=== PATIENT | male | born 1950 | race Caucasian/White ===

== ENCOUNTER → 2016-11-27 | Outpatient (REF) | payer MEDICARE, OTHER | LOC: M SFHCPLAZ 08:52 | PROVIDERS: ATTEND Family Medicine | DX: Z12.5 Encounter for screening for malignant neoplasm of prostate (principal); R35.1 Nocturia | CPT/HCPCS: 36415; G0103 ==

== ENCOUNTER → 2017-09-02 | Outpatient (REF) | payer MEDICARE, OTHER | LOC: M SFHCPLAZ 08:00 | PROVIDERS: ATTEND Family Medicine | DX: R35.1 Nocturia (principal) ==

== ENCOUNTER → 2017-09-02 | Outpatient (REF) | payer MEDICARE, OTHER ==
[2017-09-02 12:49] LABS: ALBUMIN 3.5 GM/DL (3.2-5.2); ALKALINE PHOSPHATASE 102 U/L (45-117); ALT/SGPT 31 U/L (12-78); ANION GAP 7 MEQ/L (8-16); AST/SGOT 30 U/L (7-37); BILIRUBIN,TOTAL 0.8 MG/DL (0.2-1.0); BLOOD UREA NITROGEN 13 MG/DL (7-18); CALCIUM LEVEL 8.6 MG/DL (8.8-10.2); CARBON DIOXIDE LEVEL 28 MEQ/L (21-32); CHLORIDE LEVEL 106 MEQ/L (98-107); CHOLESTEROL LEVEL 161 MG/DL (<200); CREATININE FOR GFR 0.79 MG/DL (0.70-1.30); GLOMERULAR FILTRATION RATE > 60.0 (>49); GLUCOSE, FASTING 95 MG/DL (80-110); POTASSIUM SERUM 4.2 MEQ/L (3.5-5.1); SODIUM LEVEL 141 MEQ/L (136-145); TRIGLYCERIDES LEVEL 113 MG/DL (<150)
== END ==
LOC: M LABDRAWP 11:59 → M LAB REF 11:59
PROVIDERS: ATTEND Physician Assistant
DX: E78.00 Pure hypercholesterolemia, unspecified (principal); R35.1 Nocturia; Z79.899 Other long term (current) drug therapy

== ENCOUNTER → 2018-04-07 | Outpatient (REF) | payer MEDICARE, OTHER ==
[2018-04-07 13:07] LABS: TOTAL 25(OH) VITAMIN D 23.4 NG/ML (30.0-100.0)
[2018-04-07 13:08] LABS: ANION GAP 6 MEQ/L (8-16); BLOOD UREA NITROGEN 13 MG/DL (7-18); CALCIUM LEVEL 8.8 MG/DL (8.8-10.2); CARBON DIOXIDE LEVEL 28 MEQ/L (21-32); CHLORIDE LEVEL 107 MEQ/L (98-107); CHOLESTEROL LEVEL 176 MG/DL (<200); CHOLESTEROL RISK RATIO 3.744 (<5); CREATININE FOR GFR 0.81 MG/DL (0.70-1.30); GLOMERULAR FILTRATION RATE > 60.0 (>49); GLUCOSE, FASTING 102 MG/DL (70-100); HDL CHOLESTEROL 47 MG/DL (>40); NON-HDL-C 129 MG/DL; POTASSIUM SERUM 4.3 MEQ/L (3.5-5.1); SODIUM LEVEL 141 MEQ/L (136-145); TRIGLYCERIDES LEVEL 255 MG/DL (<150); TROPONIN I < 0.02 NG/ML (< 0.10); VITAMIN B12 LEVEL 418 PG/ML (247-911)
[2018-04-07 13:20] LABS: CK-MB VALUE MASS 2.9 NG/ML (<3.6); NT-PRO BNP 318 PG/ML (<125); PSA SCREENING 2.64 NG/ML (< 4.0)
[2018-04-07 13:52] LABS: ESTIMATED AVERAGE GLUCOSE 126 MG/DL (60-110)
[2018-04-13 00:15] LABS: VITAMIN B6,PYRIDOXAL PHOSPHATE 16.2 ug/L (5.3-46.7)
== END ==
LOC: M SFHCPLAZ 08:52
DX: I50.32 Chronic diastolic (congestive) heart failure (principal); E78.2 Mixed hyperlipidemia; I35.0 Nonrheumatic aortic (valve) stenosis; Z13.1 Encounter for screening for diabetes mellitus; Z12.5 Encounter for screening for malignant neoplasm of prostate; E53.8 Deficiency of other specified B group vitamins; E55.9 Vitamin D deficiency, unspecified; Z68.32 Body mass index [BMI] 32.0-32.9, adult
CPT/HCPCS: 82607

== ENCOUNTER → 2018-10-10 | Outpatient (REF) | payer MEDICARE, OTHER ==
[2018-10-10 12:10] LABS: NT-PRO BNP 492 PG/ML (<125); TROPONIN I < 0.02 NG/ML (< 0.10)
[2018-10-10 12:15] LABS: TOTAL 25(OH) VITAMIN D 22.5 NG/ML (30.0-100.0)
== END ==
LOC: M SFHCPLAZ 09:08
PROVIDERS: ATTEND Family Medicine
DX: I50.32 Chronic diastolic (congestive) heart failure (principal); E55.9 Vitamin D deficiency, unspecified
CPT/HCPCS: 36415; 82306; 83880; 84484; G0463

== ENCOUNTER → 2019-03-27 | Outpatient (REF) | payer MEDICARE, OTHER ==
[~2019-03-27] MED LIST: ASCO500T PO; ASPI81TA26 PO; ATOR1TAB21 PO; COLA100C5 PO; FERR325T3 PO; FOLI1TAB11 PO; METO50TA7 PO; QC A650T3 PO; RANI150T14 PO; WARF4TAB51 PO
[2019-03-27 12:30] LABS: INR 3.49; PROTHROMBIN TIME 35.1 SECONDS (11.8-14.0)
== END ==
LOC: M LABDRAWP 11:45
DX: Z79.01 Long term (current) use of anticoagulants (principal)

== ENCOUNTER 2019-04-04 10:02 | Emergency (ER) | payer MEDICARE, BC, OTHER ==
[~2019-04-04] VITALS: Ht 172.7 cm; Wt 95.5 kg
[2019-04-04 10:51] LABS: BASO % 0.2 % (0.0-1.0); HEMATOCRIT 32.5 % (42.0-52.0); HEMOGLOBIN 10.9 g/dl (13.5-17.5); LYMPH # 1.4 10^3/uL (1.5-4.5); MEAN CORPUSCULAR HEMOGLOBIN 30.1 pg (27.0-33.0); MEAN CORPUSCULAR HGB CONC 33.5 g/dl (32.0-36.5); MEAN CORPUSCULAR VOLUME 89.8 fl (80.0-96.0); MONO # 1.4 10^3/uL (0.0-0.8); MONO % 7.1 % (0.0-5.0); NEUTROPHILS % 84.2 % (36.0-66.0); PLATELET COUNT, AUTOMATED 530 10^3/uL (150-450); RED BLOOD COUNT 3.62 10^6/uL (4.30-6.10); WHITE BLOOD COUNT 20.2 10^3/uL (4.0-10.0)
[2019-04-04 11:19] LABS: CALCIUM LEVEL 8.2 MG/DL (8.8-10.2); CREATININE FOR GFR 1.62 MG/DL (0.70-1.30); GLOMERULAR FILTRATION RATE 45.1 (>42); POTASSIUM SERUM 4.9 MEQ/L (3.5-5.1)
[2019-04-04 11:22] LABS: CK-MB VALUE MASS 6.9 NG/ML (<3.6); MB/CK RELATIVE INDEX 5.15 (< OR =4); TROPONIN I 0.2 NG/ML (< 0.10)
[2019-04-04] MEDS ORDERED: ISOVUE-370 76% 100ML VIAL (Q9967) As Ordered ONE (11:33)
[2019-04-04] MEDS ORDERED: RANI150T14 PO (11:36)
[2019-04-04] MEDS ORDERED: ATOR1TAB21 PO (11:36)
[2019-04-04] MEDS ORDERED: WARF4TAB51 PO (11:36)
[2019-04-04] MEDS ORDERED: QC A650T3 PO (11:36)
[2019-04-04] MEDS ORDERED: METO50TA7 PO (11:36)
[2019-04-04] MEDS ORDERED: FERR325T3 PO (11:36)
[2019-04-04] MEDS ORDERED: COLA100C5 PO (11:36)
[2019-04-04] MEDS ORDERED: ASPI81TA26 PO (11:36)
[2019-04-04] MEDS ORDERED: FOLI1TAB11 PO (11:36)
[2019-04-04] MEDS ORDERED: ASCO500T PO (11:36)
--- NOTE | 2019-04-04 11:38 | REP ---
CHEST, SINGLE VIEW: Single portable supine film of the chest is performed without prior studies for comparison. There is mild elevation of the right hemidiaphragm. There is no acute infiltrate or pulmonary edema. There is mild to moderate cardiomegaly. There is tortuosity of the thoracic aorta. The mediastinal silhouette is otherwise unremarkable. Multiple sternal wires are present. Electronically Signed by Shukri Arizmendi MD 04/04/2019 05:19 P
[2019-04-04 11:39] LABS: INR 6.69
[2019-04-04] MEDS ORDERED: NS 1,000 ML IV ONE ×2 (11:45→14:00)
[2019-04-04 13:09] LABS: ALBUMIN 3.1 GM/DL (3.2-5.2); BILIRUBIN,DIRECT 0.3 MG/DL (0.0-0.2); FREE T4 1.43 NG/DL (0.76-1.46); THYROID STIMULATING HORMONE 4.14 uIU/ML (0.358-3.740); TOTAL PROTEIN 7.8 GM/DL (6.4-8.2)
[2019-04-04 13:53] VITALS: BP 93/57
--- NOTE | 2019-04-04 14:12 | REP ---
CT ANGIOGRAM CHEST: TECHNIQUE: Axial contrast enhanced images from the thoracic inlet to the upper abdomen using 100 mL Isovue 370 intravenous contrast material with multiplanar reformations. There is no CT evidence of pulmonary embolism. There a marked size pericardial effusion. There is mild to moderate right pleural fluid. There is a tiny left pleural effusion. There is mild right lower lobe atelectasis/infiltrate with some minimal infiltrate or atelectasis in the left lower lobe. There are a couple of mildly enlarged mediastinal lymph nodes present. There is evidence of prior thoracic surgery with multiple sternal wires present. There is no dilatation of the thoracic aorta with mild scattered atherosclerotic calcification. Calcified granuloma is seen in the right upper lobe and there are a couple of calcified granulomas and lymph nodes in the left infrahilar region. Small amount of perihepatic fluid is present in the upper abdomen. There are degenerative changes of the spine. Incidental note is made of an oval lipoma in the left anterolateral chest wall inferiorly measuring 5.6 x 2.4 cm. IMPRESSION: No CT evidence of pulmonary embolism. Moderate size pericardial effusion. Mild to moderate right pleural effusion and tiny left pleural effusion. There is mild bibasilar atelectasis/infiltrate, right greater than left. Mild perihepatic fluid. Electronically Signed by Shukri Arizmendi MD 04/05/2019 09:23 A
--- NOTE | 2019-04-05 00:18 | ECGEPIP ---
[facility] - ED Test Date: 2019-04-04 Pat Name: ZEHRA PINEDA Department: Room: - Gender: Male Loan Specialist: JMissy : 1950 Requested By: Colt Mullins Order Number: [id number] Reading MD: Charlie Mckeon Measurements Intervals [place] Rate: 100 P: 55 NV: 194 QRS: 107 QRSD: 99 T: 108 QT: 364 QTc: 471 Interpretive Statements SINUS TACHYCARDIA WITH FREQUENT SUPRAVENTRICULAR PREMATURE COMPLEXES MARKED RIGHT AXIS DEVIATION Prolonged QTc interval Comparison tracing not on file Electronically Signed on 04-05-2019 0:18:00 EDT by Charlie Mckeon
== END 2019-04-04 14:04 | disposition short-term general hospital (02) ==
LOC: M ED 10:02 → EDBD 10:02 → M ED 14:04
DX: I31.3 Pericardial effusion (noninflammatory) (principal); Z98.890 Other specified postprocedural states; Z95.4 Presence of other heart-valve replacement; R79.1 Abnormal coagulation profile; E87.1 Hypo-osmolality and hyponatremia; R00.0 Tachycardia, unspecified; Z79.899 Other long term (current) drug therapy; Z79.82 Long term (current) use of aspirin; Z79.01 Long term (current) use of anticoagulants
CPT/HCPCS: 71045; 71275; 80048; 80076; 82550; 82553; 83690; 83930; 84439; 84443; 84484; 85025; 85610; 85730; 86850; 86900; 86901; 93005; 93041; 94760; 99285; Q9967

== ENCOUNTER → 2019-04-20 | Outpatient (REF) | payer MEDICARE, OTHER ==
[2019-04-20 18:09] LABS: BLOOD UREA NITROGEN 14 MG/DL (7-18); CALCIUM LEVEL 8.6 MG/DL (8.8-10.2); CARBON DIOXIDE LEVEL 25 MEQ/L (21-32); CHLORIDE LEVEL 109 MEQ/L (98-107); CREATININE FOR GFR 0.84 MG/DL (0.70-1.30); GLOMERULAR FILTRATION RATE > 60.0 (>42); GLUCOSE, FASTING 154 MG/DL (70-100); IRON (FE) 44 UG/DL (65-175); PERCENT SATURATION 12.6 % (19.7-50.0); POTASSIUM SERUM 3.9 MEQ/L (3.5-5.1); SODIUM LEVEL 141 MEQ/L (136-145); TOTAL IRON BINDING CAPACITY 348 UG/DL (250-450)
[2019-04-20 18:27] LABS: BASO # 0.1 10^3/uL (0.0-0.2); BASO % 1.4 % (0.0-1.0); EOS # 0.2 10^3/uL (0.0-0.50); EOS % 2.8 % (0.0-3.0); HEMATOCRIT 38.9 % (42.0-52.0); HEMOGLOBIN 12.2 g/dl (13.5-17.5); LYMPH # 1.5 10^3/uL (1.5-4.5); LYMPH % 23.6 % (24.0-44.0); MEAN CORPUSCULAR HEMOGLOBIN 29.3 pg (27.0-33.0); MEAN CORPUSCULAR HGB CONC 31.4 g/dl (32.0-36.5); MEAN CORPUSCULAR VOLUME 93.5 fl (80.0-96.0); MONO # 0.5 10^3/uL (0.0-0.8); MONO % 8.3 % (0.0-5.0); NEUTROPHILS % 63.3 % (36.0-66.0); PLATELET COUNT, AUTOMATED 324 10^3/uL (150-450); RED BLOOD COUNT 4.16 10^6/uL (4.30-6.10); WHITE BLOOD COUNT 6.4 10^3/uL (4.0-10.0)
== END ==
LOC: M SFHCPLAZ 14:37
PROVIDERS: ATTEND Family Medicine
DX: D64.9 Anemia, unspecified (principal); N17.9 Acute kidney failure, unspecified; Z09 Encounter for follow-up examination after completed treatment for conditions other than malignant neoplasm

== ENCOUNTER 2019-05-12 11:19 | Outpatient (RCR) | payer MEDICARE, BC, OTHER ==
--- NOTE | 2019-05-10 13:13 | CARECAPL ---
Assessment Account #s: Initial Assessment General Diagnoses: AVR Date of event: Mar 20, 2019 Physician: Reinier Cordoba Allergies: Coded Allergies: No Known Allergies (Unverified , 04/04/19) Date Entered Program: May 10, 2019 Risk strat for cardiac event: High Exercise Date: May 10, 2019 Assessment: Initial Assessment Exercise Prescription Plan TO EDUCATE AND BUILD ENDURANCE THROUGH MONITORED EXERCISE Modalities initiated: Treadmill (WILL ADD), Cardio-Strider (WILL ADD), Nustep (WILL ADD), Arm Aerometer (WILL ADD), Dumbells (WILL ADD), Recumbent Bike (WILL ADD) Frequency: 3 Duration (Minutes) 30-60 minutes total exercise a day. 12-15 work intervals in minutes. 5 MIN NEEDED rest intervals in minutes. Functional Capacity Goal Sustained Metabolic Equivalent of a task (MET) goal of 2.5-3.0 for 15-20 minutes. Intensity: 3-Moderate Progression (METS) Increase by: 0.5 METS every: 5 sessions TOLERATED Angina with ex: No Target Heart Rate REST +35-40 BASED ON BETA LIZET THERAPY Resistance Training: Yes Weight (pounds): 2 Reps: 8-12 Hypertension: Yes Hypertension controlled with: Medication Resting 136/84 Medications Scheduled Amiodarone HCl (Amiodarone HCl), 1 TAB PO DAILY, (Reported) Aspirin (Aspirin), 325 MG PO DAILY, (Reported) Atorvastatin Calcium (Atorvastatin Calcium), 20 MG PO DAILY, (Reported) Atorvastatin Calcium (Lipitor), 20 MG PO DAILY, (Reported) Folic Acid (Folic Acid), 1 MG PO DAILY, (Reported) Metoprolol Tartrate (Metoprolol Tartrate), 25 MG PO BID, (Reported) Ranitidine HCl (Ranitidine HCl), 150 MG PO DAILY, (Reported) Scheduled PRN Acetaminophen (Acetaminophen 8 Hour), 650 MG PO PRN PRN for PAIN, (Reported) Discontinued Medications Ascorbic Acid (Ascorbic Acid), 500 MG PO DAILY, (Reported) Discontinued Reason: Pt states not taking Aspirin (Aspirin EC), 81 MG PO DAILY, (Reported) Discontinued Reason: Re-entering as new Docusate Sodium (Colace), 100 MG PO BID, (Reported) Discontinued Reason: Pt states not taking Ferrous Sulfate (Ferrous Sulfate), 325 MG PO, (Reported) Discontinued Reason: Pt states not taking Warfarin Sodium (Warfarin Sodium), 2 MG PO DAILY, (Reported) Discontinued Reason: Pt states not taking Current BP 136/84 Med Change: No Intervention Education: Self pulse (WILL REVIEW), Ex safety (WILL REVIEW), S/S to report (REVIEWED SIGNS/SYMPTOMS TO REPORT SUCH CHEST PAIN/SOB, PT VERBALIZES UNDERSTANDING), Low NA diet (WILL REVIEW/PATIENT WILL SEE DIRECTOR OF DIGITAL MARKETING WHILE IN PROGRAM), BP medication (WILL DISCUSS), RPE Scale (REVIEWED 1-5 SCALE WITH PATIENT), Equipment orientation (WILL ORIENT TO EACH PIECE OF EQUIPMENT US ED), warm up/cool down, Understand BP (WILL REVIEW), Physical Active (REVIEWED IMPORTANCE OF CONTINUED EXERCISE FOLLOWING CARDIAC REHAB PROGRAM) Target Goals Individual exercise Rx (1) BP 140/90 or 130/80 if DM or CKD (1) Aerobic active 30+min 5 days per week (1) Nutrition Date: May 10, 2019 Assessment: Initial Assessment Lipid- med/supplement ATORVASTATIN 20 MG DAILY Med Change: No Diabetes Diabetes: No Monitor Blood Sugar at home: No Medication Change: No Blood sugar in range: No Weight Management Weight (lbs): 205.4 Height (inches): 68 Waist Circumference (Inches): 42 BMI: 31.2 Special Diet: low salt, low-fat Alcohol: none Diet Access Tool: Rate your plate Score: 40 Current Weight (pounds): 205.4 Intervention Astrophysics Teacher Consult: No Nurse/patient discussion: Yes Dietary Goals CHOOSE HEART HEALTHY DIET/SMALLER PORTIONS Diet Class: Yes (WILL SEE DIRECTOR OF DIGITAL MARKETING WHILE IN CARDIAC REHAB PROGRAM) Referral to Diabetes education: No Referral to lipid clinic: No Referral to weight mangement p: No Education Eating Healthy Target goal LDL-C<100 if triglycerides are >200 Non-HDL-C should be <130 (1) LDL-C<70 for high risk patients (4) HbA1c<7% (1) BMI<25 Waist cir<40in M/<35in F (1) Education Date: May 10, 2019 Assessment: Initial Assessment Learning Barriers: ready Knowledge Test Score: 6 Family Support: Yes Tobacco use: No Tobacco Use Smokeless tobacco: No Intervention Referral to smoking cessation: No Individual education and couns: No Tobacco Adjunct: No Education class schedule given: No Attended education classes: No Education: CAD, Risk factors, med compliance, cardiac A&P, Angina S/S, Sexuality Target Goals Complete cessation of tobacco use (1). Psychosocial Date: May 10, 2019 Assessment: Initial Assessment Psych Test (Initial/Discharge) Tool Used: Other (DEPRESSION SCALE) Score: 9 (MILD DEPRESSION) Intervention Physician Consult: No Physician Referral: No Med Change: No Stress Management Class: No Uses Stress Management Skills: Yes Education Education: Coping Techniques, S/S depression, Relaxation Techniques Target Goal Assess presence or absence of depression using a valid screening tool (1). Maximize coping skills (2). Positive support system (2). Patient/Program Goal Preventative Medication: Yes Aspirin, Yes Beta blockade, Yes Statin/OTR lipid Lowering Fall Risk Assess: Yes (NOT A FALL RISK) Provider Assessment Session Number: 1 Provider Assessment: Proceed with rehab Torin Castellon RN May 10, 2019 13:12
[~2019-05-12 11:19] MED LIST changes: +AMIO200T PO; +BAYE325T12 PO; +LIPI20TA PO
== END 2019-05-13 ==
LOC: M CR 11:19
PROVIDERS: ATTEND Internal Medicine Cardiovascular Disease
DX: Z95.3 Presence of xenogenic heart valve (principal); I35.0 Nonrheumatic aortic (valve) stenosis

== ENCOUNTER 2019-06-02 12:49 | Outpatient (RCR) | payer MEDICARE, BC, OTHER ==
[~2019-06-02 12:49] MED LIST changes: +CORE6.25 PO
--- NOTE | 2019-06-05 10:44 | CARECAPL ---
Assessment Account #s: Re-Assessment I General Diagnoses: AVR Date of event: Mar 20, 2019 Physician: Reinier Cordoba Allergies: Coded Allergies: No Known Allergies (Unverified , 04/04/19) Date Entered Program: May 10, 2019 Risk strat for cardiac event: High Exercise Date: Jun 05, 2019 Assessment: Re-Assessment I Stages of change: Preperation Exercise Prescription Modalities initiated: Treadmill (1.5/1.0 mts 2.35 rpe 3 8 minutes), Cardio- Strider (R3 mts 2.5 rpe 3 10 minutes), Nustep (L2 mts 3.9 rpe 4 10 minutes), Arm Aerometer (1.5 mts 1.7 rpe 3 6 minutes), Dumbells, Recumbent Bike (R2 mts 3.2 rpe 3..0 8 mnutes) Duration (Minutes) 30 - 60 minutes total exercise a day. 15 - 20 work intervals in minutes. PRN rest intervals in minutes. Functional Capacity Goal Sustained Metabolic Equivalent of a task (MET) goal of for minutes. Progression (METS) Increase by: METS every: sessions Angina with ex: No Resistance Training: Yes Weight (pounds): 2 Reps: 6-8 Hypertension: Yes (136/90) Hypertension controlled with: Medication Resting 136/90 Peak Exercise BP 170/90 Meds see below Medications Scheduled Amiodarone HCl (Amiodarone HCl), 1 TAB PO DAILY, (Reported) Aspirin (Aspirin), 325 MG PO DAILY, (Reported) Atorvastatin Calcium (Atorvastatin Calcium), 20 MG PO DAILY, (Reported) Atorvastatin Calcium (Lipitor), 20 MG PO DAILY, (Reported) Carvedilol (Coreg), 6.25 MG PO BID, (Reported) Folic Acid (Folic Acid), 1 MG PO DAILY, (Reported) Ranitidine HCl (Ranitidine HCl), 150 MG PO DAILY, (Reported) Scheduled PRN Acetaminophen (Acetaminophen 8 Hour), 650 MG PO PRN PRN for PAIN, (Reported) Discontinued Medications Metoprolol Tartrate (Metoprolol Tartrate), 25 MG PO BID, (Reported) Discontinued Reason: Pt states not taking Current BP 114/80 after exercises Med Change: No Education Goals Met: No (see prior ITP for education- progressing toward goals) Target Goals Individual exercise Rx (1) BP 140/90 or 130/80 if DM or CKD (1) Aerobic active 30+min 5 days per week (1) Nutrition Date: Jun 05, 2019 Assessment: Re-Assessment I Stages of change: Contemplate Diabetes Diabetes: No Current Weight (pounds): 205.4 Weight Goal 180 Intervention Diet Class: No (will see during program) Education Goals Met: No (progressing toward goals) Target goal LDL-C<100 if triglycerides are >200 Non-HDL-C should be <130 (1) LDL-C<70 for high risk patients (4) HbA1c<7% (1) BMI<25 Waist cir<40in M/<35in F (1) Education Date: Jun 05, 2019 Assessment: Re-Assessment I Intervention Attended education classes: Yes (attending as offered. will progress during program) Education Goals Met: No (progressing toward goals) Target Goals Complete cessation of tobacco use (1). Psychosocial Date: Jun 05, 2019 Assessment: Re-Assessment I Stress Management Class: Yes Education Goals Met: No (progressing toward goals. ) Target Goal Assess presence or absence of depression using a valid screening tool (1). Maximize coping skills (2). Positive support system (2). Provider Assessment Session Number: 5 Provider Assessment: No changes (fair attendance , receptive toward change and positive attitude toward exercise) Eusebia Beckford RN Jun 05, 2019 10:44
== END 2019-06-12 ==
LOC: M CR 12:49
PROVIDERS: ATTEND Internal Medicine Cardiovascular Disease
DX: Z95.3 Presence of xenogenic heart valve (principal); I35.0 Nonrheumatic aortic (valve) stenosis

== ENCOUNTER 2019-06-28 15:20 | Outpatient (RCR) | payer MEDICARE, BC, OTHER ==
--- NOTE | 2019-06-26 11:19 | CARECAPL ---
Assessment Account #s: Re-Assessment II General Diagnoses: AVR Date of event: Mar 20, 2019 Physician: Reinier Cordoba Allergies: Coded Allergies: No Known Allergies (Unverified , 04/04/19) Date Entered Program: May 10, 2019 Risk strat for cardiac event: High Exercise Date: Jun 21, 2019 Assessment: Re-Assessment II Stages of change: Pre-contemplation Exercise Prescription Plan educate on cardiovascular disease and increase endurance, strength and flexibility through monitored exercise program. Modalities initiated: Treadmill (speed 1.8 incline 2.0 for 12 minutes Mets 2.87 RPE 3), Nustep (resistance 3 for 12 minutes Mets 4.5 RPE 2), Arm Aerometer (resistance of 2 for 8 minutes Mets 2.4 RPE 3 ), Dumbells (3lbs 1 set 10 reps RPE 3), Recumbent Bike (Resistance of 2 for 8 minutes Mets 3.2 RPE 3 ) Frequency: 1 Duration (Minutes) 30 - 60 minutes total exercise a day. 15 - 20 work intervals in minutes. PRN rest intervals in minutes. Functional Capacity Goal Sustained Metabolic Equivalent of a task (MET) goal of 3.0-3.5 for 15-20 mi nutes. Intensity: 3-Moderate Progression (METS) Increase by: 0.5 METS every: 3-5 sessions Angina with ex: No Target Heart Rate Rest + 35-40 per beta sunitha therapy. Resistance Training: Yes Weight (pounds): 3 Reps: 8-12 Medications Scheduled Amiodarone HCl (Amiodarone HCl), 1 TAB PO DAILY, (Reported) Aspirin (Aspirin), 325 MG PO DAILY, (Reported) Atorvastatin Calcium (Atorvastatin Calcium), 20 MG PO DAILY, (Reported) Carvedilol (Carvedilol), 12.5 MG PO BID, (Reported) Folic Acid (Folic Acid), 1 MG PO DAILY, (Reported) Ranitidine HCl (Ranitidine HCl), 150 MG PO DAILY, (Reported) Scheduled PRN Acetaminophen (Acetaminophen 8 Hour), 650 MG PO PRN PRN for PAIN, (Reported) Discontinued Medications Atorvastatin Calcium (Lipitor), 20 MG PO DAILY, (Reported) Discontinued Reason: Pt states not taking Carvedilol (Coreg), 6.25 MG PO BID, (Reported) Discontinued Reason: Pt states not taking Carvedilol (Carvedilol), 12.5 MG PO BID, (Reported) Discontinued Reason: Pt states not taking Current BP 132/80 Med Change: Yes (carvedilol was increase to 12.5mg BID.) Education Goals Met: No (Patient has not been attending to complete education.) Target Goals Individual exercise Rx (1) BP 140/90 or 130/80 if DM or CKD (1) Aerobic active 30+min 5 days per week (1) Nutrition Date: Jun 26, 2019 Assessment: Re-Assessment II Stages of change: Pre-contemplation Med Change: No Diabetes Diabetes: No Medication Change: No Current Weight (pounds): 205.4 Intervention Leaflet Distributor Consult: No Nurse/patient discussion: No Diet Class: No Education Goals Met: No (Patient has no been attending to receive education any further.) Target goal LDL-C<100 if triglycerides are >200 Non-HDL-C should be <130 (1) LDL-C<70 for high risk patients (4) HbA1c<7% (1) BMI<25 Waist cir<40in M/<35in F (1) Education Date: Jun 26, 2019 Assessment: Re-Assessment II Learning Barriers: ready Stages of change: Pre-contemplation Education Goals Met: No (poor attendance no further exercise completed.) Target Goals Complete cessation of tobacco use (1). Psychosocial Date: Jun 26, 2019 Assessment: Re-Assessment II Stages of change: Pre-contemplation Med Change: No Stress Management Class: No Uses Stress Management Skills: No Education Goals Met: No (poor attendance no further education completed.) Target Goal Assess presence or absence of depression using a valid screening tool (1). Maximize coping skills (2). Positive support system (2). Patient/Program Goal Preventative Medication: Yes Beta blockade, Yes Statin/OTR lipid Lowering Fall Risk Assess: Yes (negative for fall risk) Provider Assessment Session Number: 7 Provider Assessment: Proceed with rehab (poor attendance poor motivation. states he would rather be home than here exercising. ) Nury Paul RN Jun 26, 2019 11:19
[~2019-06-28 15:20] MED LIST changes: +CARV12.5 PO
--- NOTE | 2019-07-13 14:48 | CARECAPL ---
Assessment Account #s: Discharge General Diagnoses: AVR Date of event: Mar 20, 2019 Physician: Reinier Cordoba Allergies: Coded Allergies: No Known Allergies (Unverified , 04/04/19) Date Entered Program: May 12, 2019 Risk strat for cardiac event: High Exercise Prescription Duration (Minutes) 30 - 60 minutes total exercise a day. 15 - 20 work intervals in minutes. PRN rest intervals in minutes. Functional Capacity Goal Sustained Metabolic Equivalent of a task (MET) goal of for minutes. Progression (METS) Increase by: METS every: sessions Medications Scheduled Amiodarone HCl (Amiodarone HCl), 1 TAB PO DAILY, (Reported) Aspirin (Aspirin), 325 MG PO DAILY, (Reported) Atorvastatin Calcium (Atorvastatin Calcium), 20 MG PO DAILY, (Reported) Carvedilol (Carvedilol), 12.5 MG PO BID, (Reported) Folic Acid (Folic Acid), 1 MG PO DAILY, (Reported) Ranitidine HCl (Ranitidine HCl), 150 MG PO DAILY, (Reported) Scheduled PRN Acetaminophen (Acetaminophen 8 Hour), 650 MG PO PRN PRN for PAIN, (Reported) Education Goals Met: No Target Goals Individual exercise Rx (1) BP 140/90 or 130/80 if DM or CKD (1) Aerobic active 30+min 5 days per week (1) Nutrition Date: Jul 13, 2019 Assessment: Followup/Discharge Education Goals Met: No Target goal LDL-C<100 if triglycerides are >200 Non-HDL-C should be <130 (1) LDL-C<70 for high risk patients (4) HbA1c<7% (1) BMI<25 Waist cir<40in M/<35in F (1) Education Date: Jul 13, 2019 Assessment: Followup/Discharge Education Goals Met: No Target Goals Complete cessation of tobacco use (1). Psychosocial Date: Jul 13, 2019 Assessment: Followup/Discharge Education Goals Met: No Target Goal Assess presence or absence of depression using a valid screening tool (1). Maximize coping skills (2). Positive support system (2). Provider Assessment Provider Assessment: Please add/change: (Discharged from program d/t poor attendance. Only 8 sessions since 05/12. ) Nury Paul RN Jul 13, 2019 14:48
== END 2019-07-13 ==
LOC: M CR 15:20
PROVIDERS: ATTEND Internal Medicine Cardiovascular Disease
DX: Z95.3 Presence of xenogenic heart valve (principal); I35.0 Nonrheumatic aortic (valve) stenosis

== ENCOUNTER → 2019-07-04 | Outpatient (REF) | payer MEDICARE, OTHER ==
[2019-07-04 12:04] LABS: BASO # 0.1 10^3/uL (0.0-0.2); BASO % 1.4 % (0.0-1.0); EOS # 0.1 10^3/uL (0.0-0.5); EOS % 1.8 % (0.0-3.0); HEMATOCRIT 45.7 % (42.0-52.0); HEMOGLOBIN 15.1 g/dl (13.5-17.5); LYMPH # 1.8 10^3/uL (1.5-5.0); LYMPH % 35.3 % (24.0-44.0); MEAN CORPUSCULAR HEMOGLOBIN 29.4 pg (27.0-33.0); MEAN CORPUSCULAR VOLUME 89.1 fl (80.0-96.0); MONO # 0.6 10^3/uL (0.0-0.8); NEUTROPHILS # 2.5 10^3/uL (1.5-8.5); NEUTROPHILS % 49.1 % (36.0-66.0); PLATELET COUNT, AUTOMATED 212 10^3/uL (150-450); RED BLOOD COUNT 5.13 10^6/uL (4.30-6.10); WHITE BLOOD COUNT 5.1 10^3/uL (4.0-10.0)
[2019-07-04 12:29] LABS: PERCENT SATURATION 19.3 % (19.7-50.0)
== END ==
LOC: M SFHCPLAZ 10:21
PROVIDERS: ATTEND Family Medicine
DX: D64.9 Anemia, unspecified (principal)
CPT/HCPCS: 36415; 83550; 85025; G0463

== ENCOUNTER → 2019-10-11 | Outpatient (CLI) | payer MEDICARE, BC, OTHER ==
[~2019-10-11] MED LIST changes: +AMOX500C PO
[2019-10-11 13:08] LABS: HEMATOCRIT 47.8 % (42.0-52.0); HEMOGLOBIN 15.9 g/dl (13.5-17.5); MEAN CORPUSCULAR HEMOGLOBIN 30.5 pg (27.0-33.0); MEAN CORPUSCULAR HGB CONC 33.3 g/dl (32.0-36.5); MEAN CORPUSCULAR VOLUME 91.6 fl (80.0-96.0); PLATELET COUNT, AUTOMATED 188 10^3/uL (150-450); RED BLOOD COUNT 5.22 10^6/uL (4.30-6.10); WHITE BLOOD COUNT 6.2 10^3/uL (4.0-10.0)
[2019-10-11 13:20] LABS: ALBUMIN 3.5 GM/DL (3.2-5.2); ALT/SGPT 24 U/L (12-78); BLOOD UREA NITROGEN 10 MG/DL (7-18); CARBON DIOXIDE LEVEL 30 MEQ/L (21-32); CHLORIDE LEVEL 105 MEQ/L (98-107); CHOLESTEROL LEVEL 166 MG/DL (<200); CHOLESTEROL RISK RATIO 3.772 (<5); GLOMERULAR FILTRATION RATE > 60.0 (>42); GLUCOSE, FASTING 101 MG/DL (70-100); HDL CHOLESTEROL 44 MG/DL (>40); LDL CHOLESTEROL 78 MG/DL (<100); MAGNESIUM LEVEL 2.1 MG/DL (1.8-2.4); NON-HDL-C 122 MG/DL; POTASSIUM SERUM 4.2 MEQ/L (3.5-5.1); SODIUM LEVEL 142 MEQ/L (136-145); TOTAL PROTEIN 6.7 GM/DL (6.4-8.2); TRIGLYCERIDES LEVEL 220 MG/DL (<150)
== END ==
LOC: M PLALAB 08:31
PROVIDERS: ATTEND Physician Assistant
DX: Z01.818 Encounter for other preprocedural examination (principal); E78.00 Pure hypercholesterolemia, unspecified; I48.0 Paroxysmal atrial fibrillation; I11.0 Hypertensive heart disease with heart failure

== ENCOUNTER 2019-10-20 08:58 | Day surgery (SDC) | payer MEDICARE, BC, OTHER ==
[~2019-10-20] VITALS: Ht 175.3 cm; Wt 122.5 kg
[~2019-10-20 08:58] MED LIST changes: +LIDOCAINE 2% INJ 100 MG/5 ML SDV (FOR ANES.) As Ordered ONE; +propofoL 200 MG/20 ML VIAL As Ordered ONE
[2019-10-20] MEDS ORDERED: NS 1,000 ML IV ONE (10:15)
[2019-10-20] MEDS ORDERED: AMOXICILLIN 500 MG CAP PO ONE ×2 (10:22→10:30)
--- NOTE | 2019-10-20 11:34 | ROOR ---
Patient Name: Martin Hernández Procedure Date: 10/20/2019 11:05 AM Date of : 1950 Age: 69 Room: [facility] Gender: Male Note Status: Finalized Procedure: Colonoscopy Indications: Screening for colorectal malignant neoplasm Providers: Charlie GREWAL MD Referring MD: Camden BYNUM MD Requesting Provider: Medicines: Monitored Anesthesia Care Complications: No immediate complications. Procedure: Pre-Anesthesia Assessment: - The heart rate, respiratory rate, oxygen saturations, blood pressure, adequacy of pulmonary ventilation, and response to care were monitored throughout the procedure. The Colonoscope was introduced through the anus and advanced to the cecum, identified by appendiceal orifice and ileocecal valve. The colonoscopy was performed without difficulty. The patient tolerated the procedure well. The quality of the bowel preparation was fair. Findings: The perianal and digital rectal examinations were normal. A diminutive polyp was found in the ileocecal valve. The polyp was sessile. The polyp was removed with a jumbo cold forceps. Resection and retrieval were complete. Internal hemorrhoids were found during retroflexion. The hemorrhoids were medium-sized. The exam was otherwise without abnormality on direct and retroflexion views. Impression: - Preparation of the colon was fair. - One diminutive polyp at the ileocecal valve, removed with a jumbo cold forceps. Resected and retrieved. - Internal hemorrhoids. - The examination was otherwise normal on direct and retroflexion views. Recommendation: - Telephone endoscopist for pathology results in 2 weeks. - If the pathology report reveals adenomatous tissue, then repeat the colonoscopy for surveillance in 5 years. Charlie Grewal MD Charlie GREWAL MD 10/20/2019 11:34:08 AM Electronically signed by Charlie GREWAL MD Number of Addenda: 0 Note Initiated On: 10/20/2019 11:05 AM Estimated Blood Loss: Estimated blood loss: none.
[2019-10-20 12:34] VITALS: BP 150/84
== END 2019-10-20 12:39 | disposition home or self-care (01) ==
LOC: M OPP 08:58
PROVIDERS: ATTEND Internal Medicine Gastroenterology
DX: Z12.11 Encounter for screening for malignant neoplasm of colon (principal); K64.8 Other hemorrhoids; D12.0 Benign neoplasm of cecum; I48.91 Unspecified atrial fibrillation; I34.0 Nonrheumatic mitral (valve) insufficiency; Z95.2 Presence of prosthetic heart valve; Z79.899 Other long term (current) drug therapy; Z88.8 Allergy status to other drugs, medicaments and biological substances

== ENCOUNTER → 2020-02-26 | Outpatient (REF) | payer MEDICARE, BC, OTHER ==
[~2020-02-26] MED LIST changes: -AMIO200T PO; +AMIO200T3 PO; -LIDOCAINE 2% INJ 100 MG/5 ML SDV (FOR ANES.) As Ordered ONE; -propofoL 200 MG/20 ML VIAL As Ordered ONE
[2020-02-26 12:28] LABS: BASO # 0.1 10^3/uL (0.0-0.2); EOS # 0.2 10^3/uL (0.0-0.5); EOS % 2.4 % (0.0-3.0); HEMATOCRIT 47.4 % (42.0-52.0); HEMOGLOBIN 15.6 g/dl (13.5-17.5); LYMPH # 1.7 10^3/uL (1.5-5.0); LYMPH % 27.4 % (24.0-44.0); MEAN CORPUSCULAR HEMOGLOBIN 30.8 pg (27.0-33.0); MEAN CORPUSCULAR HGB CONC 32.9 g/dl (32.0-36.5); MEAN CORPUSCULAR VOLUME 93.7 fl (80.0-96.0); MONO % 15.4 % (0.0-5.0); NEUTROPHILS # 3.3 10^3/uL (1.5-8.5); NEUTROPHILS % 53.3 % (36.0-66.0); PLATELET COUNT, AUTOMATED 178 10^3/uL (150-450); RED BLOOD COUNT 5.06 10^6/uL (4.30-6.10); WHITE BLOOD COUNT 6.2 10^3/uL (4.0-10.0)
[2020-02-26 13:09] LABS: ALBUMIN 3.6 GM/DL (3.2-5.2); ALT/SGPT 30 U/L (12-78); BLOOD UREA NITROGEN 14 MG/DL (7-18); CALCIUM LEVEL 8.9 MG/DL (8.8-10.2); CARBON DIOXIDE LEVEL 28 MEQ/L (21-32); CHLORIDE LEVEL 106 MEQ/L (98-107); CHOLESTEROL LEVEL 150 MG/DL (<200); CHOLESTEROL RISK RATIO 3.947 (<5); CREATININE FOR GFR 0.88 MG/DL (0.70-1.30); FERRITIN 59 NG/ML (26-388); FREE T4 0.91 NG/DL (0.76-1.46); GLOMERULAR FILTRATION RATE > 60.0 (>42); GLUCOSE, FASTING 98 MG/DL (70-100); HDL CHOLESTEROL 38 MG/DL (>40); IRON (FE) 117 UG/DL (65-175); LDL CHOLESTEROL 74 MG/DL (<100); NON-HDL-C 112 MG/DL; NT-PRO BNP 368 PG/ML (<125); POTASSIUM SERUM 4.5 MEQ/L (3.5-5.1); SODIUM LEVEL 139 MEQ/L (136-145); TOTAL PROTEIN 6.9 GM/DL (6.4-8.2); TRIGLYCERIDES LEVEL 190 MG/DL (<150)
[2020-02-26 13:11] LABS: PTH INTACT 52.5 PG/ML (18.5-88.0); TOTAL 25(OH) VITAMIN D 24.7 NG/ML (30.0-100.0)
[2020-02-26 13:12] LABS: FOLATE > 24.0 NG/ML (>5.4)
== END ==
LOC: M SFHCPLAZ 10:04
PROVIDERS: ATTEND Physician Assistant Medical
DX: E53.8 Deficiency of other specified B group vitamins (principal); E55.9 Vitamin D deficiency, unspecified; K21.9 Gastro-esophageal reflux disease without esophagitis; I50.32 Chronic diastolic (congestive) heart failure; E78.2 Mixed hyperlipidemia; D50.9 Iron deficiency anemia, unspecified; Z12.5 Encounter for screening for malignant neoplasm of prostate; E66.09 Other obesity due to excess calories
CPT/HCPCS: 36415; 80053; 80061; 82306; 82728; 82746; 83540; 83880; 83970; 84439; 84443; 85025; 85046; G0103; G0463

== ENCOUNTER → 2020-10-01 | Outpatient (CLI) | payer MEDICARE, OTHER ==
[2020-10-01 13:43] LABS: BASO # 0.1 10^3/uL (0.0-0.2); BASO % 1.8 % (0.0-1.0); EOS # 0.1 10^3/uL (0.0-0.5); EOS % 2.2 % (0.0-3.0); HEMATOCRIT 47.5 % (42.0-52.0); HEMOGLOBIN 15.9 g/dl (13.5-17.5); LYMPH # 1.9 10^3/uL (1.5-5.0); LYMPH % 30.6 % (24.0-44.0); MEAN CORPUSCULAR HEMOGLOBIN 31.2 pg (27.0-33.0); MEAN CORPUSCULAR HGB CONC 33.5 g/dl (32.0-36.5); MEAN CORPUSCULAR VOLUME 93.1 fl (80.0-96.0); MONO # 0.8 10^3/uL (0.0-0.8); MONO % 13.7 % (0.0-5.0); NEUTROPHILS # 3.1 10^3/uL (1.5-8.5); PLATELET COUNT, AUTOMATED 191 10^3/uL (150-450)
[2020-10-01 14:39] LABS: ALBUMIN 3.5 GM/DL (3.2-5.2); ALT/SGPT 29 U/L (12-78); BILIRUBIN,TOTAL 0.8 MG/DL (0.2-1.0); BLOOD UREA NITROGEN 18 MG/DL (7-18); CALCIUM LEVEL 9.2 MG/DL (8.8-10.2); CARBON DIOXIDE LEVEL 28 MEQ/L (21-32); CHLORIDE LEVEL 106 MEQ/L (98-107); CREATININE FOR GFR 0.98 MG/DL (0.70-1.30); FREE T4 0.79 NG/DL (0.76-1.46); GLOMERULAR FILTRATION RATE > 60.0 (>42); GLUCOSE, FASTING 104 MG/DL (70-100); POTASSIUM SERUM 4.1 MEQ/L (3.5-5.1); PTH INTACT 43.4 PG/ML (18.5-88.0); SODIUM LEVEL 139 MEQ/L (136-145); TOTAL 25(OH) VITAMIN D 20.8 NG/ML (30.0-100.0); TOTAL PROTEIN 6.7 GM/DL (6.4-8.2)
== END ==
LOC: M PLALAB 10:51
PROVIDERS: ATTEND Physician Assistant Medical
DX: E55.9 Vitamin D deficiency, unspecified (principal); I11.0 Hypertensive heart disease with heart failure; K21.9 Gastro-esophageal reflux disease without esophagitis; E78.2 Mixed hyperlipidemia; E66.09 Other obesity due to excess calories

== ENCOUNTER → 2021-04-21 | Outpatient (CLI) | payer MEDICARE, OTHER ==
[2021-04-21 15:43] LABS: BASO # 0.1 10^3/uL (0.0-0.2); BASO % 1.3 % (0.0-1.0); EOS # 0.1 10^3/uL (0.0-0.5); EOS % 1.4 % (0.0-3.0); HEMATOCRIT 44.5 % (42.0-52.0); HEMOGLOBIN 14.9 g/dl (13.5-17.5); LYMPH # 1.9 10^3/uL (1.5-5.0); LYMPH % 29.8 % (24.0-44.0); MEAN CORPUSCULAR HGB CONC 33.5 g/dl (32.0-36.5); MEAN CORPUSCULAR VOLUME 92.5 fl (80.0-96.0); MONO # 0.8 10^3/uL (0.0-0.8); MONO % 12.3 % (2.0-8.0); NEUTROPHILS # 3.4 10^3/uL (1.5-8.5); NEUTROPHILS % 54.6 % (36.0-66.0); PLATELET COUNT, AUTOMATED 181 10^3/uL (150-450); RED BLOOD COUNT 4.81 10^6/uL (4.30-6.10); WHITE BLOOD COUNT 6.2 10^3/uL (4.0-10.0)
[2021-04-21 15:50] LABS: ALBUMIN 3.4 GM/DL (3.2-5.2); ALT/SGPT 30 U/L (12-78); BILIRUBIN,TOTAL 0.8 MG/DL (0.2-1.0); BLOOD UREA NITROGEN 15 MG/DL (7-18); CALCIUM LEVEL 8.5 MG/DL (8.8-10.2); CARBON DIOXIDE LEVEL 24 MEQ/L (21-32); CHLORIDE LEVEL 111 MEQ/L (98-107); CHOLESTEROL LEVEL 137 MG/DL (<200); CHOLESTEROL RISK RATIO 3.341 (<5); CPK CREATINE PHOSPHOKINASE 145 U/L (39-308); CREATININE FOR GFR 0.76 MG/DL (0.70-1.30); FERRITIN 100 NG/ML (26-388); GLOMERULAR FILTRATION RATE > 60.0 (>42); GLUCOSE, FASTING 117 MG/DL (70-100); HDL CHOLESTEROL 41 MG/DL (>40); IRON (FE) 92 UG/DL (65-175); LDL CHOLESTEROL 49 MG/DL (<100); NON-HDL-C 96 MG/DL; POTASSIUM SERUM 4.3 MEQ/L (3.5-5.1); SODIUM LEVEL 140 MEQ/L (136-145); TOTAL PROTEIN 6.6 GM/DL (6.4-8.2); TRIGLYCERIDES LEVEL 234 MG/DL (<150)
[2021-04-21 15:56] LABS: PTH INTACT 32.7 PG/ML (18.5-88.0); TOTAL 25(OH) VITAMIN D 26.4 NG/ML (30.0-100.0)
[2021-04-21 15:57] LABS: VITAMIN B12 LEVEL 287 PG/ML (247-911)
[2021-04-21 16:02] LABS: HEMOGLOBIN A1c 6.2 %
[2021-04-21 19:11] LABS: NT-PRO BNP 320 PG/ML (<125)
== END ==
LOC: M PLALAB 12:41
PROVIDERS: ATTEND Physician Assistant Medical
DX: I50.32 Chronic diastolic (congestive) heart failure (principal); E53.8 Deficiency of other specified B group vitamins; E66.09 Other obesity due to excess calories; D50.9 Iron deficiency anemia, unspecified; E55.9 Vitamin D deficiency, unspecified; I11.0 Hypertensive heart disease with heart failure; E78.2 Mixed hyperlipidemia; Z12.5 Encounter for screening for malignant neoplasm of prostate; Z79.899 Other long term (current) drug therapy
CPT/HCPCS: 36415; 80053; 80061; 82306; 82550; 82607; 82728; 83036; 83540; 83880; 83970; 85025; G0103; G0463

== ENCOUNTER → 2021-12-11 | Outpatient (CLI) | payer MEDICARE, BC, OTHER ==
[~2021-12-11] MED LIST changes: -AMIO200T3 PO; +AMIO200T49 PO
[2021-12-11 14:37] LABS: BASO # 0.1 10^3/uL (0.0-0.2); BASO % 1.1 % (0.0-1.0); EOS # 0.1 10^3/uL (0.0-0.5); EOS % 1.4 % (0.0-3.0); HEMATOCRIT 46.9 % (42.0-52.0); HEMOGLOBIN 16.3 g/dl (13.5-17.5); LYMPH # 1.9 10^3/uL (1.5-5.0); LYMPH % 23.9 % (24.0-44.0); MEAN CORPUSCULAR HEMOGLOBIN 31.8 pg (27.0-33.0); MEAN CORPUSCULAR HGB CONC 34.8 g/dl (32.0-36.5); MEAN CORPUSCULAR VOLUME 91.4 fl (80.0-96.0); MONO # 1.2 10^3/uL (0.0-0.8); MONO % 14.3 % (2.0-8.0); NEUTROPHILS # 4.7 10^3/uL (1.5-8.5); NEUTROPHILS % 58.6 % (36.0-66.0); PLATELET COUNT, AUTOMATED 204 10^3/uL (150-450); RED BLOOD COUNT 5.13 10^6/uL (4.30-6.10)
[2021-12-11 15:40] LABS: ALBUMIN 3.5 GM/DL (3.2-5.2); ALT/SGPT 26 U/L (12-78); BILIRUBIN,TOTAL 0.8 MG/DL (0.2-1.0); BLOOD UREA NITROGEN 14 MG/DL (7-18); CALCIUM LEVEL 9.1 MG/DL (8.8-10.2); CARBON DIOXIDE LEVEL 25 MEQ/L (21-32); CHLORIDE LEVEL 107 MEQ/L (98-107); CHOLESTEROL LEVEL 154 MG/DL (<200); CHOLESTEROL RISK RATIO 3.948 (<5); CREATININE FOR GFR 0.87 MG/DL (0.70-1.30); GLOMERULAR FILTRATION RATE > 60.0 (>42); GLUCOSE, FASTING 75 MG/DL (70-100); HDL CHOLESTEROL 39 MG/DL (>40); LDL CHOLESTEROL 75 MG/DL (<100); NON-HDL-C 115 MG/DL; POTASSIUM SERUM 4.4 MEQ/L (3.5-5.1); PTH INTACT 36.6 PG/ML (18.5-88.0); SODIUM LEVEL 138 MEQ/L (136-145); TOTAL 25(OH) VITAMIN D 62.3 NG/ML (30.0-100.0); TOTAL PROTEIN 6.8 GM/DL (6.4-8.2); TRIGLYCERIDES LEVEL 199 MG/DL (<150); VITAMIN B12 LEVEL 185 PG/ML (247-911)
== END ==
LOC: M PLALAB 10:19
PROVIDERS: ATTEND Physician Assistant Medical
DX: Z12.5 Encounter for screening for malignant neoplasm of prostate (principal); E55.9 Vitamin D deficiency, unspecified; E78.2 Mixed hyperlipidemia; E53.8 Deficiency of other specified B group vitamins; Z79.899 Other long term (current) drug therapy
CPT/HCPCS: 36415; 80053; 80061; 82306; 82607; 83970; 85025; G0103

== ENCOUNTER → 2022-02-19 | Outpatient (CLI) | payer MEDICARE, BC, OTHER ==
[~2022-02-19] MED LIST changes: +E-Z-GAS II EFFERVESCENT PACKET (SODIUM BICARB./CITRIC ACID/SIMETHICONE) As Ordered ONE; +E-Z-HD 98% w/w 340GM SUSP BTL As Ordered ONE; +E-Z-PAQUE 96% w/w SUSP 176GM BTL As Ordered ONE
== END ==
LOC: M RAD 09:42
PROVIDERS: ATTEND Physician Assistant
DX: R13.10 Dysphagia, unspecified (principal)

== ENCOUNTER → 2022-03-02 | Outpatient (CLI) | payer MEDICARE, BC, OTHER ==
[~2022-03-02] MED LIST changes: -E-Z-GAS II EFFERVESCENT PACKET (SODIUM BICARB./CITRIC ACID/SIMETHICONE) As Ordered ONE; -E-Z-HD 98% w/w 340GM SUSP BTL As Ordered ONE; -E-Z-PAQUE 96% w/w SUSP 176GM BTL As Ordered ONE; +ERGO500029 PO; +LISI5TAB11 PO; +OMEP-173 PO; +VITA500T41 PO
== END ==
LOC: M LABSMTC 10:45
PROVIDERS: ATTEND Anesthesiology
DX: Z01.812 Encounter for preprocedural laboratory examination (principal); Z20.822 Contact with and (suspected) exposure to COVID-19

== ENCOUNTER 2022-03-06 13:05 | Day surgery (SDC) | payer MEDICARE, BC, OTHER ==
[~2022-03-06] VITALS: Ht 172.7 cm; Wt 91.6 kg
[~2022-03-06 13:05] MED LIST changes: +NS 1,000 ML IV ONE; +propofoL 200 MG/20 ML VIAL As Ordered ONE
[2022-03-06] MEDS ORDERED: fentaNYL 100 MCG/2 ML INJECTION As Ordered ONE (13:54)
[2022-03-06] MEDS ORDERED: PHENYLephrine 500MCG 5ML (100MCG/ML) SYRINGE As Ordered ONE (15:28)
[2022-03-06 16:00] VITALS: BP 136/80
== END 2022-03-06 16:13 | disposition home or self-care (01) ==
LOC: M OPP 13:05
PROVIDERS: ATTEND Surgery
DX: C15.9 Malignant neoplasm of esophagus, unspecified (principal); R13.10 Dysphagia, unspecified; R93.3 Abnormal findings on diagnostic imaging of other parts of digestive tract; Z79.02 Long term (current) use of antithrombotics/antiplatelets; Z79.899 Other long term (current) drug therapy; Z88.8 Allergy status to other drugs, medicaments and biological substances; Z95.4 Presence of other heart-valve replacement; Z86.79 Personal history of other diseases of the circulatory system
CPT/HCPCS: 43239; 88305; J2370; J3010

== ENCOUNTER → 2022-03-20 | Outpatient (CLI) | payer MEDICARE, BC, OTHER ==
[~2022-03-20] MED LIST changes: -NS 1,000 ML IV ONE; -propofoL 200 MG/20 ML VIAL As Ordered ONE
[2022-03-20 11:16] LABS: BLOOD UREA NITROGEN 13 MG/DL (7-18); GLOMERULAR FILTRATION RATE > 60.0 (>42)
== END ==
LOC: M LAB 10:23
PROVIDERS: ATTEND Physician Assistant Medical
DX: Z01.818 Encounter for other preprocedural examination (principal)

== ENCOUNTER → 2022-03-25 | Outpatient (CLI) | payer MEDICARE, BC, OTHER ==
[~2022-03-25] MED LIST changes: +GASTROGRAFIN SOLUTION 30ML (Q9963) As Ordered ONE; +ISOVUE-370 76% 100ML VIAL As Ordered ONE
== END ==
LOC: M RAD 07:38
PROVIDERS: ATTEND Surgery
DX: C15.9 Malignant neoplasm of esophagus, unspecified (principal)
CPT/HCPCS: 71260; 74178; Q9963; Q9967

== ENCOUNTER → 2022-04-26 | Outpatient (CLI) | payer MEDICARE, BC, OTHER ==
[~2022-04-26] MED LIST changes: -GASTROGRAFIN SOLUTION 30ML (Q9963) As Ordered ONE; -ISOVUE-370 76% 100ML VIAL As Ordered ONE
== END ==
LOC: M LABSMTC 11:26
PROVIDERS: ATTEND Anesthesiology
DX: Z01.818 Encounter for other preprocedural examination (principal); Z11.52 Encounter for screening for COVID-19

== ENCOUNTER 2022-04-28 15:11 | Outpatient (CLI) | payer MEDICARE, BC, OTHER ==
[2022-04-28 15:24] VITALS: BP 129/76
[2022-04-28] MEDS ORDERED: NS 1,000 ML IV ONE (15:30)
[2022-04-28 16:23] VITALS: BP 132/73
== END 2022-04-28 16:31 | disposition home or self-care (01) ==
LOC: M INFU 15:11
PROVIDERS: ATTEND Specialist
DX: C15.9 Malignant neoplasm of esophagus, unspecified (principal); Z88.3 Allergy status to other anti-infective agents

== ENCOUNTER → 2022-04-30 | Outpatient (CLI) | payer MEDICARE, BC, OTHER ==
[~2022-04-30] MED LIST changes: +LIDOCAINE 1% MDV 20ML VIAL As Ordered ONE; +MIDAZOLAM INJ 2MG/2ML VIAL (J2250 PER 1MG) As Ordered ONE; +NS 1,000 ML IV SCH; +ceFAZolin 2 GM/D5W 50 ML IV BAG (J0690 PER 500MG) As Ordered ONE; +ceFAZolin SOD 2 GM in IV 1 EA IV ONE; +diphenhydrAMINE 50MG/ML VIAL (J1200) As Ordered ONE; +fentaNYL 100 MCG/2 ML INJECTION As Ordered ONE
[2022-04-30 15:22] VITALS: BP 118/74
== END ==
LOC: M IRPRO 11:48
PROVIDERS: ATTEND Specialist
DX: C15.9 Malignant neoplasm of esophagus, unspecified (principal)
CPT/HCPCS: 36561; 99152; 99153; C1769; C1788; C1894; J0690; J1642; J1644; J2250; J3010

== ENCOUNTER 2022-05-03 13:59 | Inpatient (IN) | payer MEDICARE, BC, OTHER ==
[~2022-05-03] VITALS: Ht 172.7 cm; Wt 83.2 kg
[~2022-05-03 13:59] MED LIST changes: -LIDOCAINE 1% MDV 20ML VIAL As Ordered ONE; -MIDAZOLAM INJ 2MG/2ML VIAL (J2250 PER 1MG) As Ordered ONE; -NS 1,000 ML IV SCH; -ceFAZolin 2 GM/D5W 50 ML IV BAG (J0690 PER 500MG) As Ordered ONE; -ceFAZolin SOD 2 GM in IV 1 EA IV ONE; -diphenhydrAMINE 50MG/ML VIAL (J1200) As Ordered ONE; -fentaNYL 100 MCG/2 ML INJECTION As Ordered ONE
[2022-05-03] MEDS ORDERED: HOME MED LIST COMPLETE! XX SCH (15:45)
[2022-05-03 15:46] LABS: BASO # 0.1 10^3/uL (0.0-0.2); BASO % 1.3 % (0.0-1.0); EOS # 0.2 10^3/uL (0.0-0.5); EOS % 2.9 % (0.0-3.0); HEMATOCRIT 46.1 % (42.0-52.0); HEMOGLOBIN 15.3 g/dl (13.5-17.5); LYMPH # 1.2 10^3/uL (1.5-5.0); LYMPH % 23.1 % (24.0-44.0); MEAN CORPUSCULAR HEMOGLOBIN 30.8 pg (27.0-33.0); MEAN CORPUSCULAR HGB CONC 33.2 g/dl (32.0-36.5); MEAN CORPUSCULAR VOLUME 92.8 fl (80.0-96.0); MONO # 0.6 10^3/uL (0.0-0.8); MONO % 12.2 % (2.0-8.0); NEUTROPHILS # 3.2 10^3/uL (1.5-8.5); NEUTROPHILS % 60.3 % (36.0-66.0); PLATELET COUNT, AUTOMATED 213 10^3/uL (150-450); RED BLOOD COUNT 4.97 10^6/uL (4.30-6.10); WHITE BLOOD COUNT 5.2 10^3/uL (4.0-10.0)
[2022-05-03 16:21] LABS: RSV AMPLIFICATION NEGATIVE (NEGATIVE)
[2022-05-03 16:27] LABS: ALBUMIN 3.5 GM/DL (3.2-5.2); ALT/SGPT 21 U/L (12-78); BILIRUBIN,DIRECT 0.4 MG/DL (0.0-0.2); BILIRUBIN,TOTAL 1.3 MG/DL (0.2-1.0); BLOOD UREA NITROGEN 19 MG/DL (7-18); CALCIUM LEVEL 9.1 MG/DL (8.8-10.2); CARBON DIOXIDE LEVEL 29 MEQ/L (21-32); CHLORIDE LEVEL 106 MEQ/L (98-107); CREATININE FOR GFR 0.69 MG/DL (0.70-1.30); GLOMERULAR FILTRATION RATE > 60.0 (>42); GLUCOSE, FASTING 98 MG/DL (70-100); POTASSIUM SERUM 3.7 MEQ/L (3.5-5.1); SODIUM LEVEL 140 MEQ/L (136-145); TOTAL PROTEIN 7.3 GM/DL (6.4-8.2)
[2022-05-03] MEDS: D5W/0.9% SODIUM CHLORIDE 1,000 ML IV SCH (17:07)
[2022-05-04] MEDS: D5W/0.9% SODIUM CHLORIDE 1,000 ML IV SCH (06:09)
[2022-05-04 06:59] LABS: BASO % 0.6 % (0.0-1.0); EOS # 0.1 10^3/uL (0.0-0.5); EOS % 1.7 % (0.0-3.0); HEMATOCRIT 42.9 % (42.0-52.0); HEMOGLOBIN 13.9 g/dl (13.5-17.5); LYMPH % 14.2 % (24.0-44.0); MEAN CORPUSCULAR HEMOGLOBIN 30.4 pg (27.0-33.0); MEAN CORPUSCULAR HGB CONC 32.4 g/dl (32.0-36.5); MEAN CORPUSCULAR VOLUME 93.9 fl (80.0-96.0); MONO # 0.6 10^3/uL (0.0-0.8); MONO % 8.7 % (2.0-8.0); NEUTROPHILS # 5.3 10^3/uL (1.5-8.5); NEUTROPHILS % 74.5 % (36.0-66.0); PLATELET COUNT, AUTOMATED 193 10^3/uL (150-450); RED BLOOD COUNT 4.57 10^6/uL (4.30-6.10); WHITE BLOOD COUNT 7.1 10^3/uL (4.0-10.0)
[2022-05-04 07:32] LABS: BLOOD UREA NITROGEN 16 MG/DL (7-18); CALCIUM LEVEL 8.4 MG/DL (8.8-10.2); CARBON DIOXIDE LEVEL 29 MEQ/L (21-32); CHLORIDE LEVEL 108 MEQ/L (98-107); CREATININE FOR GFR 0.66 MG/DL (0.70-1.30); GLOMERULAR FILTRATION RATE > 60.0 (>42); GLUCOSE, FASTING 110 MG/DL (70-100); POTASSIUM SERUM 3.7 MEQ/L (3.5-5.1); SODIUM LEVEL 141 MEQ/L (136-145)
[2022-05-04 14:15] VITALS: BP 126/74
[2022-05-04 21:23] VITALS: BP 121/72
[2022-05-05] MEDS: D5W/0.9% SODIUM CHLORIDE 1,000 ML IV SCH ×3 (00:24→18:48)
[2022-05-05 06:00] VITALS: BP 124/77
[2022-05-05 06:56] LABS: BASO % 0.6 % (0.0-1.0); EOS # 0.2 10^3/uL (0.0-0.5); EOS % 3.1 % (0.0-3.0); HEMATOCRIT 41.5 % (42.0-52.0); HEMOGLOBIN 13.7 g/dl (13.5-17.5); LYMPH # 1.1 10^3/uL (1.5-5.0); LYMPH % 21.7 % (24.0-44.0); MEAN CORPUSCULAR HEMOGLOBIN 30.3 pg (27.0-33.0); MEAN CORPUSCULAR VOLUME 91.8 fl (80.0-96.0); MONO # 0.6 10^3/uL (0.0-0.8); MONO % 11.2 % (2.0-8.0); NEUTROPHILS # 3.1 10^3/uL (1.5-8.5); NEUTROPHILS % 63.4 % (36.0-66.0); PLATELET COUNT, AUTOMATED 190 10^3/uL (150-450); RED BLOOD COUNT 4.52 10^6/uL (4.30-6.10); WHITE BLOOD COUNT 4.9 10^3/uL (4.0-10.0)
[2022-05-05 07:20] LABS: BLOOD UREA NITROGEN 10 MG/DL (7-18); CALCIUM LEVEL 8.5 MG/DL (8.8-10.2); CARBON DIOXIDE LEVEL 24 MEQ/L (21-32); CHLORIDE LEVEL 110 MEQ/L (98-107); CREATININE FOR GFR 0.57 MG/DL (0.70-1.30); GLOMERULAR FILTRATION RATE > 60.0 (>42); GLUCOSE, FASTING 110 MG/DL (70-100); POTASSIUM SERUM 3.6 MEQ/L (3.5-5.1); SODIUM LEVEL 139 MEQ/L (136-145)
[2022-05-05 14:00] VITALS: BP 122/71
[2022-05-05 22:00] VITALS: BP 122/70
[2022-05-06] VITALS (9 sets, daily range): BP systolic 125–133; BP diastolic 66–77
[2022-05-06 07:04] LABS: BASO # 0.1 10^3/uL (0.0-0.2); EOS # 0.1 10^3/uL (0.0-0.5); EOS % 2.5 % (0.0-3.0); HEMATOCRIT 43.4 % (42.0-52.0); HEMOGLOBIN 14.7 g/dl (13.5-17.5); LYMPH # 1.3 10^3/uL (1.5-5.0); LYMPH % 24.2 % (24.0-44.0); MEAN CORPUSCULAR HGB CONC 33.9 g/dl (32.0-36.5); MEAN CORPUSCULAR VOLUME 91.6 fl (80.0-96.0); MONO # 0.5 10^3/uL (0.0-0.8); MONO % 9.1 % (2.0-8.0); NEUTROPHILS # 3.3 10^3/uL (1.5-8.5); PLATELET COUNT, AUTOMATED 202 10^3/uL (150-450); RED BLOOD COUNT 4.74 10^6/uL (4.30-6.10); WHITE BLOOD COUNT 5.2 10^3/uL (4.0-10.0)
[2022-05-06 07:43] LABS: BLOOD UREA NITROGEN 9 MG/DL (7-18); CALCIUM LEVEL 8.8 MG/DL (8.8-10.2); CARBON DIOXIDE LEVEL 24 MEQ/L (21-32); CHLORIDE LEVEL 108 MEQ/L (98-107); CREATININE FOR GFR 0.62 MG/DL (0.70-1.30); GLOMERULAR FILTRATION RATE > 60.0 (>42); GLUCOSE, FASTING 108 MG/DL (70-100); POTASSIUM SERUM 3.7 MEQ/L (3.5-5.1); SODIUM LEVEL 141 MEQ/L (136-145)
[2022-05-06] MEDS: ENOXAPARIN 40MG/0.4ML SYRINGE (J1650 PER 10MG) SC SCH ×2 (08:35→09:00)
[2022-05-06] MEDS: D5W/0.9% SODIUM CHLORIDE 1,000 ML IV SCH (11:43)
[2022-05-06] MEDS ORDERED: AMPICILLIN SOD/SULBACTAM SOD 3 GM in D5W MINI-BAG PLUS 100 ML IV ONE (16:20)
[2022-05-06] MEDS ORDERED: UNASYN 3GM VIAL As Ordered ONE (16:46)
[2022-05-06] MEDS ORDERED: BUPIVACAINE HCL 0.25% 30ML VIAL As Ordered ONE (16:55)
[2022-05-06] MEDS ORDERED: LIDOCAINE 1% SDV 30ML VIAL As Ordered ONE (16:55)
[2022-05-06] MEDS ORDERED: propofoL 200 MG/20 ML VIAL As Ordered ONE (17:00)
[2022-05-06] MEDS ORDERED: MIDAZOLAM INJ 2MG/2ML VIAL (J2250 PER 1MG) As Ordered ONE (17:00)
[2022-05-06] MEDS ORDERED: dexameTHASONE 4 MG/ML 1ML VIAL (J1100 PER 1MG) As Ordered ONE (17:00)
[2022-05-06] MEDS ORDERED: ONDANSETRON 4MG 2ML VIAL As Ordered ONE (17:00)
[2022-05-06] MEDS ORDERED: fentaNYL 250 MCG/5 ML INJECTION As Ordered ONE (17:00)
[2022-05-06] MEDS ORDERED: ROCURONIUM BROMIDE 50 MG/5 ML VIAL As Ordered ONE (17:00)
[2022-05-06] MEDS ORDERED: LIDOCAINE 2% 100MG/5ML SDV (FOR ANES.) As Ordered ONE (17:00)
[2022-05-06] MEDS ORDERED: ePHEDrine SULFATE 25 MG/5 ML(5MG/ML) SYRINGE As Ordered ONE (18:02)
[2022-05-06] MEDS ORDERED: SUGAMMADEX SODIUM 500 MG/5 ML VIAL (BRIDION) As Ordered ONE (18:02)
[2022-05-06] MEDS ORDERED: ACETAMINOPHEN 1000MG 100ML IV BTL (OFIRMEV) (J0131 PER 10MG) As Ordered ONE (18:07)
[2022-05-06] MEDS: MORPHINE 2 MG/ML 1ML VIAL IV PRN (19:54)
[2022-05-07 00:30] VITALS: BP 111/67
[2022-05-07] MEDS: D5W/0.9% SODIUM CHLORIDE 1,000 ML IV SCH (02:25)
[2022-05-07 04:51] VITALS: BP 105/66
[2022-05-07 06:31] LABS: BASO % 0.1 % (0.0-1.0); HEMOGLOBIN 14.8 g/dl (13.5-17.5); LYMPH # 0.6 10^3/uL (1.5-5.0); LYMPH % 4.4 % (24.0-44.0); MEAN CORPUSCULAR HEMOGLOBIN 30.9 pg (27.0-33.0); MEAN CORPUSCULAR HGB CONC 34.4 g/dl (32.0-36.5); MEAN CORPUSCULAR VOLUME 89.8 fl (80.0-96.0); MONO # 0.5 10^3/uL (0.0-0.8); MONO % 3.7 % (2.0-8.0); NEUTROPHILS # 11.8 10^3/uL (1.5-8.5); NEUTROPHILS % 91.4 % (36.0-66.0); PLATELET COUNT, AUTOMATED 191 10^3/uL (150-450); RED BLOOD COUNT 4.79 10^6/uL (4.30-6.10); WHITE BLOOD COUNT 12.9 10^3/uL (4.0-10.0)
[2022-05-07 07:31] LABS: BLOOD UREA NITROGEN 11 MG/DL (7-18); CALCIUM LEVEL 8.5 MG/DL (8.8-10.2); CARBON DIOXIDE LEVEL 24 MEQ/L (21-32); CHLORIDE LEVEL 107 MEQ/L (98-107); CREATININE FOR GFR 0.65 MG/DL (0.70-1.30); GLOMERULAR FILTRATION RATE > 60.0 (>42); GLUCOSE, FASTING 167 MG/DL (70-100); POTASSIUM SERUM 3.8 MEQ/L (3.5-5.1); SODIUM LEVEL 138 MEQ/L (136-145)
[2022-05-07] MEDS ORDERED: GASTROGRAFIN SOLUTION 30ML (Q9963) As Ordered ONE (08:52)
[2022-05-07] MEDS: ENOXAPARIN 40MG/0.4ML SYRINGE (J1650 PER 10MG) SC SCH (09:00)
[2022-05-07] MEDS: MORPHINE 2 MG/ML 1ML VIAL IV PRN (09:49)
[2022-05-07 11:00] VITALS: BP 119/72
[2022-05-07] MEDS ORDERED: KETOROLAC 30 MG/ML 1ML VIAL IV PRN (12:20)
[2022-05-07] MEDS ORDERED: ACETAMINOPHEN 325 MG/10.15 ML UDC GT PRN (12:20)
[2022-05-07] MEDS: OMEPRAZOLE SUSPENSION 20MG 10ML ORAL SYRINGE GT SCH (13:37)
[2022-05-07 14:00] VITALS: BP 130/74
[2022-05-07 18:00] VITALS: BP 121/64
[2022-05-07 20:27] VITALS: BP 110/63
[2022-05-08 02:00] VITALS: BP 121/69
[2022-05-08 05:30] VITALS: BP 104/60
[2022-05-08 07:03] LABS: BASO % 0.4 % (0.0-1.0); EOS % 0.4 % (0.0-3.0); HEMATOCRIT 40.5 % (42.0-52.0); HEMOGLOBIN 13.8 g/dl (13.5-17.5); LYMPH # 1.6 10^3/uL (1.5-5.0); LYMPH % 17.1 % (24.0-44.0); MEAN CORPUSCULAR HEMOGLOBIN 30.9 pg (27.0-33.0); MEAN CORPUSCULAR HGB CONC 34.1 g/dl (32.0-36.5); MEAN CORPUSCULAR VOLUME 90.6 fl (80.0-96.0); MONO # 0.8 10^3/uL (0.0-0.8); NEUTROPHILS # 6.9 10^3/uL (1.5-8.5); NEUTROPHILS % 73.8 % (36.0-66.0); PLATELET COUNT, AUTOMATED 195 10^3/uL (150-450); RED BLOOD COUNT 4.47 10^6/uL (4.30-6.10); WHITE BLOOD COUNT 9.3 10^3/uL (4.0-10.0)
[2022-05-08 07:32] LABS: BLOOD UREA NITROGEN 21 MG/DL (7-18); CALCIUM LEVEL 8.7 MG/DL (8.8-10.2); CARBON DIOXIDE LEVEL 28 MEQ/L (21-32); CHLORIDE LEVEL 108 MEQ/L (98-107); CREATININE FOR GFR 0.65 MG/DL (0.70-1.30); GLOMERULAR FILTRATION RATE > 60.0 (>42); GLUCOSE, FASTING 109 MG/DL (70-100); POTASSIUM SERUM 3.7 MEQ/L (3.5-5.1); SODIUM LEVEL 141 MEQ/L (136-145)
[2022-05-08] MEDS: ENOXAPARIN 40MG/0.4ML SYRINGE (J1650 PER 10MG) SC SCH (08:39)
[2022-05-08] MEDS: OMEPRAZOLE SUSPENSION 20MG 10ML ORAL SYRINGE GT SCH (08:39)
[2022-05-08] MEDS ORDERED: ACET325S6 GT (11:21)
[2022-05-08] MEDS ORDERED: Omeprazole Suspension GT (11:21)
[2022-05-08] MEDS ORDERED: PREV30TA3 GT (11:23)
[2022-05-12] MEDS ORDERED: ESCI5SOL3 PO (13:00)
== END 2022-05-08 14:22 | disposition home health service (06) | DRG 374 ==
LOC: M ED 13:59 → M ED INP 16:02 → M MSPAV 05-04 13:40
PROVIDERS: ADMIT Internal Medicine Nephrology; ATTEND Internal Medicine Nephrology
PROC: 0DH63UZ Insertion of Feeding Device into Stomach, Percutaneous Approach (ICD-10-PCS; principal; 2022-05-06 15:00)
DX: C15.9 Malignant neoplasm of esophagus, unspecified (principal); E43 Unspecified severe protein-calorie malnutrition; C79.51 Secondary malignant neoplasm of bone; R13.10 Dysphagia, unspecified; K21.9 Gastro-esophageal reflux disease without esophagitis; Z93.1 Gastrostomy status; E78.00 Pure hypercholesterolemia, unspecified; I10 Essential (primary) hypertension; Z88.8 Allergy status to other drugs, medicaments and biological substances; Z95.2 Presence of prosthetic heart valve; H90.5 Unspecified sensorineural hearing loss

== ENCOUNTER → 2022-05-12 | Outpatient (CLI) | payer MEDICARE, BC, OTHER ==
[~2022-05-12] VITALS: Ht 172.7 cm; Wt 83.0 kg
[~2022-05-12] MED LIST changes: +ACET325S6 GT; +ESCI5SOL3 PO; +Omeprazole Suspension GT; +PREV30TA3 GT
[2022-05-12 11:30] VITALS: BP 126/76
== END ==
LOC: M PAL 10:57
PROVIDERS: ATTEND Nurse Practitioner Adult Health
DX: C15.5 Malignant neoplasm of lower third of esophagus (principal); C79.51 Secondary malignant neoplasm of bone; E43 Unspecified severe protein-calorie malnutrition; E78.49 Other hyperlipidemia; E55.9 Vitamin D deficiency, unspecified; E53.8 Deficiency of other specified B group vitamins; F43.23 Adjustment disorder with mixed anxiety and depressed mood; I11.0 Hypertensive heart disease with heart failure; I35.0 Nonrheumatic aortic (valve) stenosis; I50.9 Heart failure, unspecified; K21.9 Gastro-esophageal reflux disease without esophagitis; R63.4 Abnormal weight loss; Z88.8 Allergy status to other drugs, medicaments and biological substances; Z51.5 Encounter for palliative care; Z93.1 Gastrostomy status; Z79.899 Other long term (current) drug therapy

== ENCOUNTER → 2022-05-13 | Outpatient (RCR) | payer MEDICARE, BC, OTHER | LOC: M ONCR 05-01 07:05 | PROVIDERS: ATTEND General Practice | DX: C15.5 Malignant neoplasm of lower third of esophagus (principal) ==

== ENCOUNTER → 2022-05-19 | Outpatient (POV) | payer MEDICARE, BC, OTHER ==
[~2022-05-19] VITALS: Ht 172.7 cm; Wt 81.8 kg
[2022-05-19 13:30] VITALS: BP 128/78
== END ==
LOC: M IRPOV 13:13
PROVIDERS: ATTEND Radiology Diagnostic Radiology
DX: Z45.2 Encounter for adjustment and management of vascular access device (principal); Z88.8 Allergy status to other drugs, medicaments and biological substances

== ENCOUNTER 2022-06-04 14:00 | Outpatient (RCR) | payer MEDICARE, BC, OTHER ==
[2022-06-09] MEDS ORDERED: ONDA-84 PO (10:20)
[2022-06-09] MEDS ORDERED: PROC10TA5 PO (10:20)
[2022-06-09] MEDS ORDERED: ONDA8TAB8 PO (10:29)
[2022-06-09] MEDS ORDERED: ONDA4SOL PO (14:23)
== END 2022-06-12 ==
LOC: M ONCR 14:00
PROVIDERS: ATTEND General Practice
DX: C15.5 Malignant neoplasm of lower third of esophagus (principal)

== ENCOUNTER → 2022-08-12 | Outpatient (CLI) | payer MEDICARE, BC, OTHER ==
[~2022-08-12] MED LIST changes: +GASTROGRAFIN SOLUTION 30ML As Ordered ONE; +ISOVUE-370 76% 100ML VIAL As Ordered ONE; +KETO2CR TOP; +ONDA-84 PO; +ONDA4SOL PO; +ONDA8TAB8 PO; +PROC10TA5 PO
== END ==
LOC: M RAD 12:13
PROVIDERS: ATTEND Specialist
DX: C15.9 Malignant neoplasm of esophagus, unspecified (principal)
CPT/HCPCS: 71260; 74177; Q9963; Q9967

== ENCOUNTER → 2022-09-01 | Outpatient (CLI) | payer MEDICARE, BC, OTHER ==
[~2022-09-01] MED LIST changes: -GASTROGRAFIN SOLUTION 30ML As Ordered ONE; -ISOVUE-370 76% 100ML VIAL As Ordered ONE
== END ==
LOC: M ONCM 08:49
PROVIDERS: ATTEND Dietitian, Registered
DX: Z71.3 Dietary counseling and surveillance (principal); C15.5 Malignant neoplasm of lower third of esophagus; Z92.3 Personal history of irradiation; Z92.21 Personal history of antineoplastic chemotherapy

== ENCOUNTER → 2022-09-02 | Outpatient (CLI) | payer MEDICARE, BC, OTHER ==
[~2022-09-02] MED LIST changes: -KETO2CR TOP
== END ==
LOC: M ONCR 13:30
PROVIDERS: ATTEND General Practice
DX: C15.5 Malignant neoplasm of lower third of esophagus (principal); C79.51 Secondary malignant neoplasm of bone; Z79.899 Other long term (current) drug therapy; Z92.3 Personal history of irradiation; Z92.21 Personal history of antineoplastic chemotherapy

== ENCOUNTER → 2022-10-22 | Outpatient (CLI) | payer MEDICARE, BC, OTHER ==
[~2022-10-22] MED LIST changes: +KETO2CR TOP; +XARE15TA PO; +XARE20TA PO
== END ==
LOC: M RAD 09:01
PROVIDERS: ATTEND General Practice
DX: C15.5 Malignant neoplasm of lower third of esophagus (principal)
CPT/HCPCS: 78306; A9503

== ENCOUNTER → 2022-10-26 | Outpatient (CLI) | payer MEDICARE, BC, OTHER | LOC: M RAD 14:02 | PROVIDERS: ATTEND Nurse Practitioner | DX: M79.89 Other specified soft tissue disorders (principal); M79.606 Pain in leg, unspecified ==

== ENCOUNTER 2022-11-17 09:43 | Emergency (ER) | payer MEDICARE, BC, OTHER ==
[~2022-11-17] VITALS: Ht 172.7 cm; Wt 58.6 kg
[2022-11-17] MEDS ORDERED: GASTROGRAFIN SOLUTION 30ML PO ONE (13:45)
[2022-11-17 15:04] VITALS: BP 127/90
== END 2022-11-17 15:07 | disposition home or self-care (01) ==
LOC: M ED 09:43
DX: K94.23 Gastrostomy malfunction (principal); I10 Essential (primary) hypertension; E78.5 Hyperlipidemia, unspecified; K21.9 Gastro-esophageal reflux disease without esophagitis; F32.A Depression, unspecified; C15.9 Malignant neoplasm of esophagus, unspecified; Z86.79 Personal history of other diseases of the circulatory system; Z88.3 Allergy status to other anti-infective agents; Z92.21 Personal history of antineoplastic chemotherapy; Z79.899 Other long term (current) drug therapy
CPT/HCPCS: 43762; 74018; 99283; Q9963

== ENCOUNTER 2022-11-17 19:02 | Emergency (ER) | payer MEDICARE, BC, OTHER ==
[~2022-11-17] VITALS: Ht 172.7 cm; Wt 88.4 kg
[2022-11-17 19:04] VITALS: BP 145/87
== END 2022-11-17 22:24 | disposition home or self-care (01) ==
LOC: M ED 19:02
DX: K94.23 Gastrostomy malfunction (principal); F32.A Depression, unspecified; C15.9 Malignant neoplasm of esophagus, unspecified; Z88.3 Allergy status to other anti-infective agents; Z92.21 Personal history of antineoplastic chemotherapy; Z79.899 Other long term (current) drug therapy

== ENCOUNTER → 2022-11-27 | Outpatient (REF) | payer MEDICARE, BC, OTHER | LOC: M SFHCDERM 17:10 | PROVIDERS: ATTEND Dermatology | DX: Z48.89 Encounter for other specified surgical aftercare (principal) ==

== ENCOUNTER → 2022-12-10 | Outpatient (CLI) | payer MEDICARE, BC, OTHER ==
[~2022-12-10] MED LIST changes: +GASTROGRAFIN SOLUTION 30ML As Ordered ONE; +ISOVUE-370 76% 100ML VIAL As Ordered ONE
== END ==
LOC: M RAD 13:32
PROVIDERS: ATTEND Nurse Practitioner
DX: C15.9 Malignant neoplasm of esophagus, unspecified (principal)

== ENCOUNTER → 2023-01-14 | Outpatient (REF) | payer MEDICARE, OTHER ==
[~2023-01-14] MED LIST changes: -GASTROGRAFIN SOLUTION 30ML As Ordered ONE; -ISOVUE-370 76% 100ML VIAL As Ordered ONE
== END ==
LOC: M SFHCPLAZ 11:28
PROVIDERS: ATTEND Physician Assistant Medical
DX: E53.8 Deficiency of other specified B group vitamins (principal); E55.9 Vitamin D deficiency, unspecified; E78.2 Mixed hyperlipidemia; Z12.5 Encounter for screening for malignant neoplasm of prostate

== ENCOUNTER → 2023-01-18 | Outpatient (REF) | payer MEDICARE, OTHER ==
[~2023-01-18] MED LIST changes: +NEUR100C PO
[2023-01-18 13:01] LABS: CALCIUM LEVEL 8.8 MG/DL (8.3-10.6); CHOLESTEROL RISK RATIO 3.56 (<5); HDL CHOLESTEROL 49.9 MG/DL (>40); LDL CHOLESTEROL 79.1 MG/DL (<100); NON-HDL-C 128.1 MG/DL
[2023-01-18 13:02] LABS: PTH INTACT 72.3 PG/ML (18.5-88.0)
[2023-01-18 13:03] LABS: TOTAL 25(OH) VITAMIN D 30.1 NG/ML (20.0-100.0)
== END ==
LOC: M LAB REF 10:35
PROVIDERS: ATTEND Physician Assistant Medical
DX: E53.8 Deficiency of other specified B group vitamins (principal); E55.9 Vitamin D deficiency, unspecified; E78.2 Mixed hyperlipidemia; Z12.5 Encounter for screening for malignant neoplasm of prostate

== ENCOUNTER → 2023-03-03 | Outpatient (CLI) | payer MEDICARE, BC, OTHER ==
[~2023-03-03] MED LIST changes: +CYMB1CAP5 PO
== END ==
LOC: M ONCR 13:10
PROVIDERS: ATTEND General Practice
DX: C15.5 Malignant neoplasm of lower third of esophagus (principal); C79.51 Secondary malignant neoplasm of bone; Z71.2 Person consulting for explanation of examination or test findings; Z79.01 Long term (current) use of anticoagulants; Z79.631 Long term (current) use of antimetabolite agent; Z79.899 Other long term (current) drug therapy; Z88.8 Allergy status to other drugs, medicaments and biological substances; Z92.3 Personal history of irradiation; Z93.1 Gastrostomy status

== ENCOUNTER → 2023-03-08 | Outpatient (CLI) | payer MEDICARE, BC, OTHER ==
[~2023-03-08] MED LIST changes: +GASTROGRAFIN SOLUTION 30ML As Ordered ONE; +ISOVUE-370 76% 100ML VIAL As Ordered ONE
== END ==
LOC: M RAD 09:32
PROVIDERS: ATTEND Nurse Practitioner
DX: C15.9 Malignant neoplasm of esophagus, unspecified (principal)
CPT/HCPCS: 71260; 74177; Q9963; Q9967

== ENCOUNTER → 2023-05-10 | Outpatient (CLI) | payer MEDICARE, BC, OTHER ==
[~2023-05-10] MED LIST changes: -GASTROGRAFIN SOLUTION 30ML As Ordered ONE; -ISOVUE-370 76% 100ML VIAL As Ordered ONE; +LEVO1TAB39 PO
== END ==
LOC: M PLARAD 11:52
PROVIDERS: ATTEND Internal Medicine Hematology & Oncology
DX: C15.5 Malignant neoplasm of lower third of esophagus (principal); Z92.21 Personal history of antineoplastic chemotherapy
CPT/HCPCS: 78815; A9552

== ENCOUNTER → 2023-06-02 | Outpatient (CLI) | payer MEDICARE, BC, OTHER | LOC: M RAD 12:24 | PROVIDERS: ATTEND Nurse Practitioner | DX: C15.9 Malignant neoplasm of esophagus, unspecified (principal) ==

== ENCOUNTER 2023-06-13 16:57 | Inpatient (IN) | payer MEDICARE, BC, OTHER ==
[~2023-06-13] VITALS: Ht 172.7 cm; Wt 83.8 kg
[2023-06-13 17:38] LABS: BASO # 0.1 10^3/uL (0.0-0.2); BASO % 0.4 % (0.0-1.0); EOS % 0.1 % (0.0-3.0); HEMATOCRIT 38.7 % (42.0-52.0); HEMOGLOBIN 13.5 g/dl (13.5-17.5); LYMPH # 0.5 10^3/uL (1.5-5.0); MEAN CORPUSCULAR HEMOGLOBIN 33.5 pg (27.0-33.0); MEAN CORPUSCULAR HGB CONC 34.9 g/dl (32.0-36.5); MONO % 9.8 % (2.0-8.0); NEUTROPHILS # 14.2 10^3/uL (1.5-8.5); NEUTROPHILS % 84.3 % (36.0-66.0); PLATELET COUNT, AUTOMATED 207 10^3/uL (150-450); RED BLOOD COUNT 4.03 10^6/uL (4.30-6.10); WHITE BLOOD COUNT 16.8 10^3/uL (4.0-10.0)
[2023-06-13] MEDS ORDERED: cefTRIAXone SOD 2 GM in D5W MINI-BAG PLUS 50 ML IV ONE (17:45)
[2023-06-13] MEDS ORDERED: ACETAMINOPHEN TAB 650MG DOSE (2X325MG) PO ONE (17:45)
[2023-06-13 17:53] LABS: ALBUMIN 1.3 G/DL (3.2-5.2); ALKALINE PHOSPHATASE 205 U/L (46-116); ALT/SGPT 33 U/L (7.0-40); AST/SGOT 52 U/L (<34); BILIRUBIN,DIRECT 0.4 MG/DL (<0.4); BLOOD UREA NITROGEN 16 MG/DL (9-23); CARBON DIOXIDE LEVEL 24 MMOL/L (20-31); CHLORIDE LEVEL 96 MMOL/L (98-107); CREATININE FOR GFR 0.63 MG/DL (0.70-1.30); GLOMERULAR FILTRATION RATE > 60.0 (>42); GLUCOSE, FASTING 186 MG/DL (74-106); POTASSIUM SERUM 4.1 MMOL/L (3.5-5.1); SODIUM LEVEL 129 MMOL/L (136-145); TOTAL PROTEIN 6.3 G/DL (5.7-8.2)
[2023-06-13 17:57] LABS: ABG BASE EXCESS 0.8 (-2.0-2.0); ABG HCO3 22.2 MMOL/L (22.0-26.0); ABG O2 SATURATION 91.9 % (95.0-99.0); ABG PARTIAL PRESSURE CO2 26.6 mmHg (35.0-45.0); ABG PARTIAL PRESSURE O2 56.7 mmHg (75.0-100.0); ABG STANDARD HCO3 25.1 MMOL/L. (22.0-26.0); ABG pH (ARTERIAL) 7.539 UNITS (7.350-7.450)
[2023-06-13 18:24] LABS: MONO # 1.7 10^3/uL (0.0-0.8)
[2023-06-13] MEDS ORDERED: LR 1,000 ML IV ONE (18:55)
[2023-06-13] MEDS ORDERED: dexAMETHasone 20MG/5ML VIAL IV SCH (18:55)
[2023-06-13] MEDS ORDERED: guaiFENesin DM LIQ 10ML UD PEG PRN (18:55)
[2023-06-13] MEDS ORDERED: XARE20TA PO (19:07)
[2023-06-13] MEDS ORDERED: ESCI5SOL3 GT (19:07)
[2023-06-13] MEDS ORDERED: HOME MED LIST COMPLETE! XX SCH (19:10)
[2023-06-13] MEDS ORDERED: COMBIVENT RESPIMAT 100-20MCG INHALER 4GM INH PRN (19:15)
[2023-06-13] MEDS: LR 1,000 ML IV SCH (19:51)
[2023-06-13] MEDS ORDERED: dexAMETHasone 20MG/5ML VIAL IV ONE (20:00)
[2023-06-13] MEDS ORDERED: ISOVUE-370 76% 100ML VIAL As Ordered ONE (20:16)
[2023-06-13 20:50] VITALS: BP 114/63; TEMP 99.2; O2SAT 92
[2023-06-13 21:12] LABS: APPEARANCE, URINE CLEAR (CLEAR); BACTERIA, URINE AUTO NEGATIVE (NEGATIVE); BILIRUBIN, URINE AUTO NEGATIVE (NEGATIVE); BLOOD, URINE BLOOD NEGATIVE (NEGATIVE); COLOR, URINE YELLOW (YELLOW); GLUCOSE, URINE (UA) AUTO NEGATIVE (NEGATIVE); KETONE, URINE AUTO NEGATIVE (NEGATIVE); LEUKOCYTE ESTERASE, URINE AUTO NEGATIVE (NEGATIVE); NITRITE, URINE AUTO NEGATIVE (NEGATIVE); PROTEIN, URINE AUTO 1+ mg/dL (NEGATIVE); RBC, URINE AUTO 1 /HPF (0-3); SPECIFIC GRAVITY URINE AUTO 1.013 (1.002-1.035); SQUAMOUS EPITHELIAL CELL UR AU 0 /HPF (0-6); WBC, URINE AUTO 1 /HPF (0-3)
[2023-06-13 21:26] LABS: SODIUM,RANDOM URINE < 10 MMOL/L
[2023-06-13 21:31] LABS: OSMOLALITY URINE 286 MOSM/KG (50-1400)
[2023-06-13] MEDS ORDERED: ACETAMINOPHEN TAB 650MG DOSE (2X325MG) PEG PRN (22:00)
[2023-06-13] MEDS: PIPERACILLIN/TAZOBACTAM SOD 3.375 GM in D5W MINI-BAG PLUS 50 ML IV SCH (22:23)
[2023-06-13] MEDS: BARICITINIB 2MG TABLET (OLUMIANT) FOR EUA PO SCH (22:31)
[2023-06-14] VITALS (8 sets, daily range): BP systolic 104–130; BP diastolic 53–80; TEMP 96.9–99.6; O2SAT 88–94
[2023-06-14] MEDS: LR 1,000 ML IV SCH ×2 (01:35→05:42)
[2023-06-14] MEDS: PIPERACILLIN/TAZOBACTAM SOD 3.375 GM in D5W MINI-BAG PLUS 50 ML IV SCH ×4 (02:30→20:24)
[2023-06-14 04:22] LABS: HEMATOCRIT 34.5 % (42.0-52.0); HEMOGLOBIN 11.7 g/dl (13.5-17.5); MEAN CORPUSCULAR HEMOGLOBIN 33.1 pg (27.0-33.0); MEAN CORPUSCULAR HGB CONC 33.9 g/dl (32.0-36.5); MEAN CORPUSCULAR VOLUME 97.5 fl (80.0-96.0); PLATELET COUNT, AUTOMATED 169 10^3/uL (150-450); RED BLOOD COUNT 3.54 10^6/uL (4.30-6.10); WHITE BLOOD COUNT 14.7 10^3/uL (4.0-10.0)
[2023-06-14 04:35] LABS: INR 1.37; PROTHROMBIN TIME 16.5 SECONDS (12.5-14.5)
[2023-06-14 04:36] LABS: PARTIAL THROMBOPLASTIN TIME 36.2 SECONDS (24.8-34.2)
[2023-06-14 04:49] LABS: ALKALINE PHOSPHATASE 171 U/L (46-116); ALT/SGPT 28 U/L (7.0-40); AST/SGOT 40 U/L (<34); BILIRUBIN,TOTAL 0.7 MG/DL (0.3-1.2); BLOOD UREA NITROGEN 14 MG/DL (9-23); CALCIUM LEVEL 7.7 MG/DL (8.3-10.6); CARBON DIOXIDE LEVEL 28 MMOL/L (20-31); CHLORIDE LEVEL 105 MMOL/L (98-107); GLOMERULAR FILTRATION RATE > 60.0 (>42); GLUCOSE, FASTING 171 MG/DL (74-106); MAGNESIUM LEVEL 2.1 MG/DL (1.8-2.4); POTASSIUM SERUM 4.5 MMOL/L (3.5-5.1); SODIUM LEVEL 137 MMOL/L (136-145); TOTAL PROTEIN 5.4 G/DL (5.7-8.2)
[2023-06-14 09:06] LABS: PROCALCITONIN 0.14 ng/ml
[2023-06-14] MEDS: ESCITALOPRAM OXALATE 10 MG TAB (LEXAPRO) PEG SCH (09:22)
[2023-06-14] MEDS: SODIUM CHLORIDE 0.9% INJ 10 ML SYR IV SCH (09:28)
[2023-06-14] MEDS ORDERED: REMDESIVIR 200 MG in NS 250 ML IV ONE (12:00)
[2023-06-14] MEDS: dexAMETHasone 20MG/5ML VIAL IV SCH (13:41)
[2023-06-14] MEDS: DOXYCYCLINE HYCLATE 100MG TABLET PEG SCH ×2 (13:41→20:24)
[2023-06-14] MEDS: PANTOPRAZOLE 40MG VIAL IV SCH (13:44)
[2023-06-14] MEDS: RIVAROXABAN 20MG TAB (XARELTO) PEG SCH (18:28)
[2023-06-14] MEDS: BARICITINIB 2MG TABLET (OLUMIANT) FOR EUA PO SCH (20:24)
[2023-06-15] VITALS (12 sets, daily range): BP systolic 100–124; BP diastolic 56–69; TEMP 97.2–98.3; O2SAT 88–96
[2023-06-15] MEDS: PIPERACILLIN/TAZOBACTAM SOD 3.375 GM in D5W MINI-BAG PLUS 50 ML IV SCH ×2 (02:34→08:47)
[2023-06-15] MEDS: SODIUM CHLORIDE 0.9% INJ 10 ML SYR IV PRN (04:13)
[2023-06-15 04:38] LABS: BASO % 0.2 % (0.0-1.0); HEMATOCRIT 32.7 % (42.0-52.0); LYMPH # 0.4 10^3/uL (1.5-5.0); LYMPH % 2.2 % (24.0-44.0); MEAN CORPUSCULAR HEMOGLOBIN 32.7 pg (27.0-33.0); MEAN CORPUSCULAR HGB CONC 33.6 g/dl (32.0-36.5); MEAN CORPUSCULAR VOLUME 97.3 fl (80.0-96.0); MONO # 0.9 10^3/uL (0.0-0.8); MONO % 5.1 % (2.0-8.0); NEUTROPHILS # 15.9 10^3/uL (1.5-8.5); NEUTROPHILS % 91.7 % (36.0-66.0); PLATELET COUNT, AUTOMATED 178 10^3/uL (150-450); RED BLOOD COUNT 3.36 10^6/uL (4.30-6.10); WHITE BLOOD COUNT 17.3 10^3/uL (4.0-10.0)
[2023-06-15 05:14] LABS: BLOOD UREA NITROGEN 14 MG/DL (9-23); CALCIUM LEVEL 4.6 MG/DL (8.3-10.6); CARBON DIOXIDE LEVEL 18 MMOL/L (20-31); CHLORIDE LEVEL 120 MMOL/L (98-107); CREATININE FOR GFR 0.36 MG/DL (0.70-1.30); GLOMERULAR FILTRATION RATE > 60.0 (>42); GLUCOSE, FASTING 90 MG/DL (74-106); POTASSIUM SERUM 2.8 MMOL/L (3.5-5.1); SODIUM LEVEL 146 MMOL/L (136-145)
[2023-06-15 06:52] LABS: BLOOD UREA NITROGEN 21 MG/DL (9-23); CALCIUM LEVEL 7.9 MG/DL (8.3-10.6); CARBON DIOXIDE LEVEL 28 MMOL/L (20-31); CHLORIDE LEVEL 106 MMOL/L (98-107); CREATININE FOR GFR 0.59 MG/DL (0.70-1.30); GLOMERULAR FILTRATION RATE > 60.0 (>42); GLUCOSE, FASTING 124 MG/DL (74-106); MAGNESIUM LEVEL 2.2 MG/DL (1.8-2.4); POTASSIUM SERUM 4.4 MMOL/L (3.5-5.1); SODIUM LEVEL 140 MMOL/L (136-145)
[2023-06-15] MEDS: KCL 20MEQ IN 100ML SWI (KRUN) 20 MEQ in IV 1 EA IV SCH ×4 (07:00→07:18)
[2023-06-15] MEDS: PANTOPRAZOLE 40MG VIAL IV SCH (08:45)
[2023-06-15] MEDS: ESCITALOPRAM OXALATE 10 MG TAB (LEXAPRO) PEG SCH (08:45)
[2023-06-15] MEDS: DOXYCYCLINE HYCLATE 100MG TABLET PEG SCH (08:46)
[2023-06-15] MEDS: dexAMETHasone 20MG/5ML VIAL IV SCH (08:46)
[2023-06-15] MEDS: SODIUM CHLORIDE 0.9% INJ 10 ML SYR IV SCH (08:47)
[2023-06-15] MEDS: REMDESIVIR 100 MG in NS 250 ML IV SCH (13:02)
[2023-06-15] MEDS: RIVAROXABAN 20MG TAB (XARELTO) PEG SCH (18:00)
[2023-06-15] MEDS: BARICITINIB 2MG TABLET (OLUMIANT) FOR EUA PO SCH (20:22)
[2023-06-16] VITALS (25 sets, daily range): BP systolic 108–135; BP diastolic 55–68; TEMP 97.7–100.5; O2SAT 85–97
[2023-06-16 05:18] LABS: HEMATOCRIT 33.8 % (42.0-52.0); HEMOGLOBIN 11.4 g/dl (13.5-17.5); MEAN CORPUSCULAR HGB CONC 33.7 g/dl (32.0-36.5); PLATELET COUNT, AUTOMATED 188 10^3/uL (150-450); RED BLOOD COUNT 3.45 10^6/uL (4.30-6.10); WHITE BLOOD COUNT 18.3 10^3/uL (4.0-10.0)
[2023-06-16 06:25] LABS: ALBUMIN 1.9 G/DL (3.2-5.2); ALKALINE PHOSPHATASE 178 U/L (46-116); ALT/SGPT 37 U/L (7.0-40); AST/SGOT 63 U/L (<34); BILIRUBIN,TOTAL 0.5 MG/DL (0.3-1.2); BLOOD UREA NITROGEN 23 MG/DL (9-23); CALCIUM LEVEL 7.7 MG/DL (8.3-10.6); CARBON DIOXIDE LEVEL 26 MMOL/L (20-31); CHLORIDE LEVEL 107 MMOL/L (98-107); CREATININE FOR GFR 0.55 MG/DL (0.70-1.30); GLOMERULAR FILTRATION RATE > 60.0 (>42); GLUCOSE, FASTING 83 MG/DL (74-106); POTASSIUM SERUM 4.7 MMOL/L (3.5-5.1); SODIUM LEVEL 140 MMOL/L (136-145); TOTAL PROTEIN 5.3 G/DL (5.7-8.2)
[2023-06-16 07:25] LABS: PROCALCITONIN 0.11 ng/ml
[2023-06-16] MEDS: PANTOPRAZOLE 40MG VIAL IV SCH (08:45)
[2023-06-16] MEDS: ESCITALOPRAM OXALATE 10 MG TAB (LEXAPRO) PEG SCH (08:45)
[2023-06-16] MEDS: dexAMETHasone 20MG/5ML VIAL IV SCH (08:45)
[2023-06-16] MEDS: REMDESIVIR 100 MG in NS 250 ML IV SCH (12:11)
[2023-06-16] MEDS: SODIUM CHLORIDE 0.9% INJ 10 ML SYR IV SCH (12:13)
[2023-06-16] MEDS: RIVAROXABAN 20MG TAB (XARELTO) PEG SCH (17:20)
[2023-06-16] MEDS: BARICITINIB 2MG TABLET (OLUMIANT) FOR EUA PO SCH (20:15)
[2023-06-17] VITALS (15 sets, daily range): BP systolic 122–140; BP diastolic 68–81; TEMP 97.1–100; O2SAT 83–97
[2023-06-17 05:22] LABS: HEMATOCRIT 35.6 % (42.0-52.0); HEMOGLOBIN 11.9 g/dl (13.5-17.5); MEAN CORPUSCULAR HEMOGLOBIN 32.6 pg (27.0-33.0); MEAN CORPUSCULAR HGB CONC 33.4 g/dl (32.0-36.5); MEAN CORPUSCULAR VOLUME 97.5 fl (80.0-96.0); PLATELET COUNT, AUTOMATED 178 10^3/uL (150-450); RED BLOOD COUNT 3.65 10^6/uL (4.30-6.10); WHITE BLOOD COUNT 18.3 10^3/uL (4.0-10.0)
[2023-06-17 06:24] LABS: ALKALINE PHOSPHATASE 188 U/L (46-116); ALT/SGPT 28 U/L (7.0-40); AST/SGOT 46 U/L (<34); BILIRUBIN,TOTAL 0.6 MG/DL (0.3-1.2); BLOOD UREA NITROGEN 23 MG/DL (9-23); CARBON DIOXIDE LEVEL 24 MMOL/L (20-31); CHLORIDE LEVEL 106 MMOL/L (98-107); CREATININE FOR GFR 0.55 MG/DL (0.70-1.30); GLOMERULAR FILTRATION RATE > 60.0 (>42); GLUCOSE, FASTING 136 MG/DL (74-106); POTASSIUM SERUM 3.9 MMOL/L (3.5-5.1); SODIUM LEVEL 138 MMOL/L (136-145); TOTAL PROTEIN 5.8 G/DL (5.7-8.2)
[2023-06-17 08:33] LABS: ABG HCO3 24.4 MMOL/L (22.0-26.0); ABG O2 SATURATION 98.5 % (95.0-99.0); ABG PARTIAL PRESSURE CO2 31.6 mmHg (35.0-45.0); ABG PARTIAL PRESSURE O2 121.6 mmHg (75.0-100.0); ABG STANDARD HCO3 26.3 MMOL/L. (22.0-26.0); ABG TOTAL CO2 25.4 MMOL/L (23.0-31.0); ABG pH (ARTERIAL) 7.506 UNITS (7.350-7.450)
[2023-06-17] MEDS ORDERED: FUROSEMIDE 40MG/4ML VIAL IV SCH (09:00)
[2023-06-17] MEDS: SODIUM CHLORIDE 0.9% INJ 10 ML SYR IV SCH (09:08)
[2023-06-17] MEDS: PANTOPRAZOLE 40MG VIAL IV SCH (09:09)
[2023-06-17] MEDS: ESCITALOPRAM OXALATE 10 MG TAB (LEXAPRO) PEG SCH (09:09)
[2023-06-17] MEDS: dexAMETHasone 20MG/5ML VIAL IV SCH (09:09)
[2023-06-17] MEDS ORDERED: FUROSEMIDE 20MG/2ML VIAL IV SCH (10:49)
[2023-06-17] MEDS: FUROSEMIDE 20MG/2ML VIAL IV SCH ×2 (11:18→17:02)
[2023-06-17] MEDS: REMDESIVIR 100 MG in NS 250 ML IV SCH (11:18)
[2023-06-17 14:08] LABS: BODY FLUID CULTURE Not indicated. (.); LEGIONELLA ANTIGEN URINE Negative (Negative); ORGANISM ID Not indicated. (.); SPECIMEN SOURCE Urine (.); URINE STREP PNEUMONIAE ANTIGEN Negative (Negative)
[2023-06-17] MEDS: RIVAROXABAN 20MG TAB (XARELTO) PEG SCH (17:01)
[2023-06-17] MEDS: BARICITINIB 2MG TABLET (OLUMIANT) FOR EUA PO SCH (21:21)
[2023-06-18] VITALS (25 sets, daily range): BP systolic 103–135; BP diastolic 56–85; TEMP 97.3–98.4; O2SAT 73–97
[2023-06-18] MEDS: ESCITALOPRAM OXALATE 10 MG TAB (LEXAPRO) PEG SCH (09:15)
[2023-06-18] MEDS: SODIUM CHLORIDE 0.9% INJ 10 ML SYR IV SCH (09:15)
[2023-06-18] MEDS: dexAMETHasone 20MG/5ML VIAL IV SCH (09:16)
[2023-06-18] MEDS: PANTOPRAZOLE 40MG VIAL IV SCH (09:17)
[2023-06-18] MEDS: FUROSEMIDE 20MG/2ML VIAL IV SCH (09:17)
[2023-06-18] MEDS: REMDESIVIR 100 MG in NS 250 ML IV SCH (13:12)
[2023-06-18 14:09] LABS: CHLAMYDIA PNEUMONIAE IgG <1:100 (< 1:100); CHLAMYDIA PNEUMONIAE IgM <1:10 (< 1:10); CHLAMYDIA PSITTACI IgG <1:100 (< 1:100); CHLAMYDIA PSITTACI IgM <1:10 (< 1:10); CHLAMYDIA TRACHOMATIS IgG <1:100 (< 1:100); CHLAMYDIA TRACHOMATIS IgM <1:10 (< 1:10)
[2023-06-18] MEDS: RIVAROXABAN 20MG TAB (XARELTO) PEG SCH (18:42)
[2023-06-18] MEDS: BARICITINIB 2MG TABLET (OLUMIANT) FOR EUA PO SCH (20:13)
[2023-06-19] VITALS (13 sets, daily range): BP systolic 106–130; BP diastolic 57–78; TEMP 96.5–97.8; O2SAT 88–95
[2023-06-19] MEDS: SODIUM CHLORIDE 0.9% INJ 10 ML SYR IV PRN (04:28)
[2023-06-19 04:52] LABS: BASO # 0.1 10^3/uL (0.0-0.2); BASO % 0.3 % (0.0-1.0); EOS # 0.1 10^3/uL (0.0-0.5); EOS % 0.6 % (0.0-3.0); HEMATOCRIT 40.8 % (42.0-52.0); HEMOGLOBIN 13.8 g/dl (13.5-17.5); LYMPH # 0.7 10^3/uL (1.5-5.0); LYMPH % 3.5 % (24.0-44.0); MEAN CORPUSCULAR HEMOGLOBIN 32.3 pg (27.0-33.0); MEAN CORPUSCULAR HGB CONC 33.8 g/dl (32.0-36.5); MEAN CORPUSCULAR VOLUME 95.6 fl (80.0-96.0); MONO # 1.3 10^3/uL (0.0-0.8); MONO % 6.4 % (2.0-8.0); NEUTROPHILS # 16.8 10^3/uL (1.5-8.5); NEUTROPHILS % 85.2 % (36.0-66.0); PLATELET COUNT, AUTOMATED 113 10^3/uL (150-450); RED BLOOD COUNT 4.27 10^6/uL (4.30-6.10); WHITE BLOOD COUNT 19.7 10^3/uL (4.0-10.0)
[2023-06-19 05:16] LABS: ALBUMIN 2.2 G/DL (3.2-5.2); BLOOD UREA NITROGEN 47 MG/DL (9-23); CALCIUM LEVEL 8.4 MG/DL (8.3-10.6); CARBON DIOXIDE LEVEL 28 MMOL/L (20-31); CHLORIDE LEVEL 107 MMOL/L (98-107); CREATININE FOR GFR 0.61 MG/DL (0.70-1.30); GLOMERULAR FILTRATION RATE > 60.0 (>42); GLUCOSE, FASTING 111 MG/DL (74-106); PHOSPHORUS LEVEL 4.2 MG/DL (2.4-5.1); POTASSIUM SERUM 4.2 MMOL/L (3.5-5.1); SODIUM LEVEL 142 MMOL/L (136-145)
[2023-06-19] MEDS: SODIUM CHLORIDE 0.9% INJ 10 ML SYR IV SCH (09:00)
[2023-06-19] MEDS: dexAMETHasone 20MG/5ML VIAL IV SCH (09:30)
[2023-06-19] MEDS: PANTOPRAZOLE 40MG VIAL IV SCH (09:30)
[2023-06-19] MEDS: ESCITALOPRAM OXALATE 10 MG TAB (LEXAPRO) PEG SCH (09:31)
[2023-06-19] MEDS ORDERED: FUROSEMIDE 20MG/2ML VIAL IV ONE (11:00)
[2023-06-19] MEDS: RIVAROXABAN 20MG TAB (XARELTO) PEG SCH (16:54)
[2023-06-19] MEDS: BARICITINIB 2MG TABLET (OLUMIANT) FOR EUA PO SCH (21:32)
[2023-06-20] VITALS (24 sets, daily range): BP systolic 106–158; BP diastolic 62–93; TEMP 97.2–98.2; O2SAT 84–95
[2023-06-20 05:42] LABS: BLOOD UREA NITROGEN 52 MG/DL (9-23); CALCIUM LEVEL 8.5 MG/DL (8.3-10.6); CARBON DIOXIDE LEVEL 28 MMOL/L (20-31); CHLORIDE LEVEL 102 MMOL/L (98-107); CREATININE FOR GFR 0.61 MG/DL (0.70-1.30); GLOMERULAR FILTRATION RATE > 60.0 (>42); GLUCOSE, FASTING 108 MG/DL (74-106); MAGNESIUM LEVEL 2.4 MG/DL (1.8-2.4); POTASSIUM SERUM 4.3 MMOL/L (3.5-5.1); SODIUM LEVEL 137 MMOL/L (136-145)
[2023-06-20] MEDS: dexAMETHasone 20MG/5ML VIAL IV SCH (09:33)
[2023-06-20] MEDS: PANTOPRAZOLE 40MG VIAL IV SCH (09:35)
[2023-06-20] MEDS: ESCITALOPRAM OXALATE 10 MG TAB (LEXAPRO) PEG SCH (09:36)
[2023-06-20] MEDS: SODIUM CHLORIDE 0.9% INJ 10 ML SYR IV SCH (09:37)
[2023-06-20] MEDS: RIVAROXABAN 20MG TAB (XARELTO) PEG SCH (17:50)
[2023-06-20] MEDS: BARICITINIB 2MG TABLET (OLUMIANT) FOR EUA PO SCH (20:47)
[2023-06-21] VITALS (11 sets, daily range): BP systolic 100–120; BP diastolic 69–74; TEMP 97.5–97.9; O2SAT 89–95
[2023-06-21 05:22] LABS: HEMATOCRIT 40.7 % (42.0-52.0); HEMOGLOBIN 13.6 g/dl (13.5-17.5); MEAN CORPUSCULAR HEMOGLOBIN 31.6 pg (27.0-33.0); MEAN CORPUSCULAR HGB CONC 33.4 g/dl (32.0-36.5); MEAN CORPUSCULAR VOLUME 94.4 fl (80.0-96.0); RED BLOOD COUNT 4.31 10^6/uL (4.30-6.10); WHITE BLOOD COUNT 17.8 10^3/uL (4.0-10.0)
[2023-06-21 05:40] LABS: BLOOD UREA NITROGEN 41 MG/DL (9-23); CALCIUM LEVEL 8.2 MG/DL (8.3-10.6); CARBON DIOXIDE LEVEL 30 MMOL/L (20-31); CHLORIDE LEVEL 105 MMOL/L (98-107); CREATININE FOR GFR 0.56 MG/DL (0.70-1.30); GLOMERULAR FILTRATION RATE > 60.0 (>42); GLUCOSE, FASTING 105 MG/DL (74-106); MAGNESIUM LEVEL 2.2 MG/DL (1.8-2.4); POTASSIUM SERUM 4.6 MMOL/L (3.5-5.1); SODIUM LEVEL 139 MMOL/L (136-145)
[2023-06-21 06:09] LABS: PLATELET COUNT, AUTOMATED 41 10^3/uL (150-450)
[2023-06-21 06:14] LABS: HYPERSEGMENTED POLYS 1+; LYMPHOCYTES 3 % (16-44); METAMYELOCYTES 3 % (0-0); MONOCYTES 2 % (0-5); NEUTROPHILS 90 % (28-66); PLATELET ESTIMATE DECREASED (NORMAL)
[2023-06-21 06:16] LABS: SCHISTOCYTES 2+
[2023-06-21] MEDS: SENNA SYRUP 15 ML UDC PEG SCH (09:00)
[2023-06-21] MEDS: DOCUSATE SOD LIQ 100MG/10ML UDC GT SCH (09:36)
[2023-06-21] MEDS: ESCITALOPRAM OXALATE 10 MG TAB (LEXAPRO) PEG SCH (09:37)
[2023-06-21] MEDS: dexAMETHasone 20MG/5ML VIAL IV SCH (09:38)
[2023-06-21] MEDS: PANTOPRAZOLE 40MG VIAL IV SCH (09:39)
[2023-06-21] MEDS: FUROSEMIDE 40MG/4ML VIAL IV SCH (09:39)
[2023-06-21] MEDS: SODIUM CHLORIDE 0.9% INJ 10 ML SYR IV SCH (12:00)
[2023-06-21 13:05] LABS: HEMATOCRIT 43.5 % (42.0-52.0); HEMOGLOBIN 14.8 g/dl (13.5-17.5); MEAN CORPUSCULAR HEMOGLOBIN 31.9 pg (27.0-33.0); MEAN CORPUSCULAR VOLUME 93.8 fl (80.0-96.0); RED BLOOD COUNT 4.64 10^6/uL (4.30-6.10); WHITE BLOOD COUNT 29.5 10^3/uL (4.0-10.0)
[2023-06-21 13:36] LABS: PLATELET COUNT, AUTOMATED 46 10^3/uL (150-450)
[2023-06-21 13:40] LABS: ATYPICAL LYMPH 2 % (0-5); MONOCYTES 6 % (0-5); NEUTROPHILS 92 % (28-66); PLATELET ESTIMATE DECREASED (NORMAL)
[2023-06-21 13:41] LABS: SCHISTOCYTES 1+
[2023-06-21] MEDS: RIVAROXABAN 20MG TAB (XARELTO) PEG SCH (17:14)
[2023-06-21] MEDS: BARICITINIB 2MG TABLET (OLUMIANT) FOR EUA PO SCH (20:11)
[2023-06-22] VITALS (10 sets, daily range): BP systolic 102–131; BP diastolic 65–75; TEMP 97.5–98.4; O2SAT 88–96
[2023-06-22] MEDS: SODIUM CHLORIDE 0.9% INJ 10 ML SYR IV PRN (04:21)
[2023-06-22 04:38] LABS: HEMATOCRIT 41.2 % (42.0-52.0); HEMOGLOBIN 13.9 g/dl (13.5-17.5); MEAN CORPUSCULAR HGB CONC 33.7 g/dl (32.0-36.5); MEAN CORPUSCULAR VOLUME 94.7 fl (80.0-96.0); RED BLOOD COUNT 4.35 10^6/uL (4.30-6.10); WHITE BLOOD COUNT 21.3 10^3/uL (4.0-10.0)
[2023-06-22 04:49] LABS: PLATELET COUNT, AUTOMATED 40 10^3/uL (150-450)
[2023-06-22 05:06] LABS: ALBUMIN 2.3 G/DL (3.2-5.2); ALKALINE PHOSPHATASE 225 U/L (46-116); ALT/SGPT 62 U/L (7.0-40); AST/SGOT 65 U/L (<34); BILIRUBIN,DIRECT 0.4 MG/DL (<0.4); BLOOD UREA NITROGEN 35 MG/DL (9-23); CALCIUM LEVEL 8.3 MG/DL (8.3-10.6); CARBON DIOXIDE LEVEL 31 MMOL/L (20-31); CHLORIDE LEVEL 100 MMOL/L (98-107); CREATININE FOR GFR 0.59 MG/DL (0.70-1.30); GLOMERULAR FILTRATION RATE > 60.0 (>42); GLUCOSE, FASTING 103 MG/DL (74-106); MAGNESIUM LEVEL 2.2 MG/DL (1.8-2.4); POTASSIUM SERUM 4.5 MMOL/L (3.5-5.1); SODIUM LEVEL 136 MMOL/L (136-145); TOTAL PROTEIN 5.9 G/DL (5.7-8.2)
[2023-06-22 05:19] LABS: ATYPICAL LYMPH 1 % (0-5); LYMPHOCYTES 6 % (16-44); METAMYELOCYTES 2 % (0-0); MONOCYTES 3 % (0-5); MYELOCYTES 1 % (0-0); NEUTROPHILS 85 % (28-66)
[2023-06-22 05:20] LABS: PLATELET ESTIMATE MARKED DECREASE (NORMAL)
[2023-06-22] MEDS: ESCITALOPRAM OXALATE 10 MG TAB (LEXAPRO) PEG SCH (08:12)
[2023-06-22] MEDS: dexAMETHasone 20MG/5ML VIAL IV SCH (08:12)
[2023-06-22] MEDS: PANTOPRAZOLE 40MG VIAL IV SCH (08:12)
[2023-06-22] MEDS: FUROSEMIDE 40MG/4ML VIAL IV SCH (08:12)
[2023-06-22] MEDS: DOCUSATE SOD LIQ 100MG/10ML UDC GT SCH (08:12)
[2023-06-22] MEDS: SENNA SYRUP 15 ML UDC PEG SCH (08:13)
[2023-06-22] MEDS: SODIUM CHLORIDE 0.9% INJ 10 ML SYR IV SCH (09:00)
[2023-06-22] MEDS: RIVAROXABAN 20MG TAB (XARELTO) PEG SCH (17:03)
[2023-06-22] MEDS: BARICITINIB 2MG TABLET (OLUMIANT) FOR EUA PO SCH (21:05)
[2023-06-23] VITALS (21 sets, daily range): BP systolic 107–127; BP diastolic 55–85; TEMP 97.3–98.2; O2SAT 85–98
[2023-06-23 07:16] LABS: C REACTIVE PROTEIN QUANTITATIV 1.2 MG/DL (<1.0)
[2023-06-23 07:18] LABS: ALBUMIN 2.4 G/DL (3.2-5.2); BILIRUBIN,DIRECT 0.3 MG/DL (<0.4); BILIRUBIN,TOTAL 0.8 MG/DL (0.3-1.2); TOTAL PROTEIN 6.1 G/DL (5.7-8.2)
[2023-06-23] MEDS: ESCITALOPRAM OXALATE 10 MG TAB (LEXAPRO) PEG SCH (08:22)
[2023-06-23] MEDS: FUROSEMIDE 40MG/4ML VIAL IV SCH (08:23)
[2023-06-23] MEDS: DOCUSATE SOD LIQ 100MG/10ML UDC GT SCH (08:23)
[2023-06-23] MEDS: PANTOPRAZOLE 40MG VIAL IV SCH (08:23)
[2023-06-23] MEDS: SENNA SYRUP 15 ML UDC PEG SCH (08:24)
[2023-06-23] MEDS: dexAMETHasone 20MG/5ML VIAL IV SCH (08:24)
[2023-06-23 14:45] LABS: HEMATOCRIT 45.5 % (42.0-52.0); HEMOGLOBIN 15.5 g/dl (13.5-17.5); MEAN CORPUSCULAR HEMOGLOBIN 32.2 pg (27.0-33.0); MEAN CORPUSCULAR HGB CONC 34.1 g/dl (32.0-36.5); MEAN CORPUSCULAR VOLUME 94.6 fl (80.0-96.0); RED BLOOD COUNT 4.81 10^6/uL (4.30-6.10)
[2023-06-23 14:47] LABS: PLATELET COUNT, AUTOMATED 59 10^3/uL (150-450); WHITE BLOOD COUNT 31.2 10^3/uL (4.0-10.0)
[2023-06-23] MEDS ORDERED: FUROSEMIDE 20MG/2ML VIAL IV ONE (15:00)
[2023-06-23 15:05] LABS: LYMPHOCYTES 1 % (16-44); METAMYELOCYTES 2 % (0-0); MONOCYTES 2 % (0-5); MYELOCYTES 2 % (0-0); NEUTROPHILS 90 % (28-66); PLATELET ESTIMATE DECREASED (NORMAL)
[2023-06-23] MEDS: CEFEPIME HCL 2 GM in D5W MINI-BAG PLUS 50 ML IV SCH (15:58)
[2023-06-23] MEDS: RIVAROXABAN 20MG TAB (XARELTO) PEG SCH (17:55)
[2023-06-23] MEDS ORDERED: MAG SULF 1GM/100ML (MAG RUN) 1 GM in IV 1 EA IV ONE (21:00)
[2023-06-23] MEDS: BARICITINIB 2MG TABLET (OLUMIANT) FOR EUA PO SCH (21:36)
[2023-06-23] MEDS: CLOTRIMAZOLE 1% TOPICAL CREAM 30GM TOP SCH (21:37)
[2023-06-24] VITALS (19 sets, daily range): BP systolic 105–141; BP diastolic 69–88; TEMP 97.4–98; O2SAT 86–100
[2023-06-24] MEDS: CEFEPIME HCL 2 GM in D5W MINI-BAG PLUS 50 ML IV SCH ×3 (00:15→16:05)
[2023-06-24] MEDS: ALPRAZolam 0.25 MG TAB PEG PRN ×2 (00:31→21:18)
[2023-06-24 06:29] LABS: HEMATOCRIT 45.2 % (42.0-52.0); HEMOGLOBIN 15.1 g/dl (13.5-17.5); MEAN CORPUSCULAR HEMOGLOBIN 32.1 pg (27.0-33.0); MEAN CORPUSCULAR HGB CONC 33.4 g/dl (32.0-36.5); RED BLOOD COUNT 4.71 10^6/uL (4.30-6.10); WHITE BLOOD COUNT 23.2 10^3/uL (4.0-10.0)
[2023-06-24 06:45] LABS: PLATELET COUNT, AUTOMATED 65 10^3/uL (150-450)
[2023-06-24 07:31] LABS: LYMPHOCYTES 12 % (16-44); METAMYELOCYTES 1 % (0-0); MONOCYTES 3 % (0-5); MYELOCYTES 1 % (0-0); NEUTROPHILS 81 % (28-66)
[2023-06-24 07:32] LABS: PLATELET ESTIMATE DECREASED (NORMAL)
[2023-06-24 07:33] LABS: SCHISTOCYTES 2+
[2023-06-24 07:34] LABS: ANISOCYTOSIS 1+; MICROCYTOSIS 1+; POIKILOCYTOSIS 2+; TEAR DROP CELLS 2+
[2023-06-24] MEDS: dexAMETHasone 20MG/5ML VIAL IV SCH (08:16)
[2023-06-24] MEDS: PANTOPRAZOLE 40MG VIAL IV SCH (08:16)
[2023-06-24] MEDS: FUROSEMIDE 40MG/4ML VIAL IV SCH (08:16)
[2023-06-24] MEDS: CLOTRIMAZOLE 1% TOPICAL CREAM 30GM TOP SCH ×2 (08:17→20:10)
[2023-06-24] MEDS: DOCUSATE SOD LIQ 100MG/10ML UDC GT SCH (08:18)
[2023-06-24] MEDS: SENNA SYRUP 15 ML UDC PEG SCH (08:18)
[2023-06-24] MEDS: ESCITALOPRAM OXALATE 10 MG TAB (LEXAPRO) PEG SCH (08:18)
[2023-06-24] MEDS ORDERED: FUROSEMIDE 40MG/4ML VIAL IV ONE (15:00)
[2023-06-24] MEDS: RIVAROXABAN 20MG TAB (XARELTO) PEG SCH (18:28)
[2023-06-24] MEDS: BARICITINIB 2MG TABLET (OLUMIANT) FOR EUA PO SCH (20:09)
[2023-06-25] VITALS (21 sets, daily range): BP systolic 105–131; BP diastolic 65–77; TEMP 97.6–98.4; O2SAT 89–100
[2023-06-25] MEDS: CEFEPIME HCL 2 GM in D5W MINI-BAG PLUS 50 ML IV SCH ×3 (00:27→17:55)
[2023-06-25 05:04] LABS: ALBUMIN 2.5 G/DL (3.2-5.2); ALKALINE PHOSPHATASE 217 U/L (46-116); ALT/SGPT 88 U/L (7.0-40); AST/SGOT 61 U/L (<34); BILIRUBIN,DIRECT 0.3 MG/DL (<0.4); BILIRUBIN,TOTAL 0.7 MG/DL (0.3-1.2); BLOOD UREA NITROGEN 38 MG/DL (9-23); CALCIUM LEVEL 8.4 MG/DL (8.3-10.6); CARBON DIOXIDE LEVEL 35 MMOL/L (20-31); CHLORIDE LEVEL 94 MMOL/L (98-107); CREATININE FOR GFR 0.66 MG/DL (0.70-1.30); GLOMERULAR FILTRATION RATE > 60.0 (>42); GLUCOSE, FASTING 107 MG/DL (74-106); MAGNESIUM LEVEL 2.4 MG/DL (1.8-2.4); PHOSPHORUS LEVEL 4.3 MG/DL (2.4-5.1); POTASSIUM SERUM 4.4 MMOL/L (3.5-5.1); SODIUM LEVEL 134 MMOL/L (136-145); TOTAL PROTEIN 6.2 G/DL (5.7-8.2)
[2023-06-25 08:53] LABS: BLOOD UREA NITROGEN 38 MG/DL (9-23); CALCIUM LEVEL 8.3 MG/DL (8.3-10.6); CARBON DIOXIDE LEVEL 30 MMOL/L (20-31); CHLORIDE LEVEL 95 MMOL/L (98-107); CREATININE FOR GFR 0.58 MG/DL (0.70-1.30); GLOMERULAR FILTRATION RATE > 60.0 (>42); GLUCOSE, FASTING 120 MG/DL (74-106); MAGNESIUM LEVEL 2.4 MG/DL (1.8-2.4); POTASSIUM SERUM 3.9 MMOL/L (3.5-5.1); SODIUM LEVEL 133 MMOL/L (136-145)
[2023-06-25] MEDS: DOCUSATE SOD LIQ 100MG/10ML UDC GT SCH (09:00)
[2023-06-25] MEDS: SENNA SYRUP 15 ML UDC PEG SCH (09:00)
[2023-06-25] MEDS: FUROSEMIDE 40MG/4ML VIAL IV SCH (09:20)
[2023-06-25] MEDS: ESCITALOPRAM OXALATE 10 MG TAB (LEXAPRO) PEG SCH (09:20)
[2023-06-25] MEDS: dexAMETHasone 20MG/5ML VIAL IV SCH (09:21)
[2023-06-25] MEDS: PANTOPRAZOLE 40MG VIAL IV SCH (09:21)
[2023-06-25] MEDS: CLOTRIMAZOLE 1% TOPICAL CREAM 30GM TOP SCH ×2 (09:28→22:00)
[2023-06-25] MEDS: RIVAROXABAN 20MG TAB (XARELTO) PEG SCH (17:59)
[2023-06-25 18:10] LABS: MYCOPLASMA PNEUMONIAE IgG 105 U/mL (0-99); MYCOPLASMA PNEUMONIAE IgM <770 U/mL (0-769)
[2023-06-25] MEDS: BARICITINIB 2MG TABLET (OLUMIANT) FOR EUA PO SCH (21:59)
[2023-06-26] VITALS (27 sets, daily range): BP systolic 92–107; BP diastolic 55–71; TEMP 97.5–97.8; O2SAT 82–99
[2023-06-26] MEDS: CEFEPIME HCL 2 GM in D5W MINI-BAG PLUS 50 ML IV SCH ×4 (00:09→23:31)
[2023-06-26 05:37] LABS: BASO # 0.1 10^3/uL (0.0-0.2); BASO % 0.3 % (0.0-1.0); EOS # 0.5 10^3/uL (0.0-0.5); EOS % 2.2 % (0.0-3.0); HEMATOCRIT 43.1 % (42.0-52.0); HEMOGLOBIN 14.6 g/dl (13.5-17.5); LYMPH # 0.9 10^3/uL (1.5-5.0); LYMPH % 3.8 % (24.0-44.0); MEAN CORPUSCULAR HEMOGLOBIN 31.8 pg (27.0-33.0); MEAN CORPUSCULAR HGB CONC 33.9 g/dl (32.0-36.5); MEAN CORPUSCULAR VOLUME 93.9 fl (80.0-96.0); MONO # 1.5 10^3/uL (0.0-0.8); MONO % 6.7 % (2.0-8.0); NEUTROPHILS # 19.3 10^3/uL (1.5-8.5); NEUTROPHILS % 83.6 % (36.0-66.0); RED BLOOD COUNT 4.59 10^6/uL (4.30-6.10); WHITE BLOOD COUNT 23.1 10^3/uL (4.0-10.0)
[2023-06-26 05:41] LABS: PLATELET COUNT, AUTOMATED 76 10^3/uL (150-450)
[2023-06-26 06:00] LABS: BLOOD UREA NITROGEN 39 MG/DL (9-23); CALCIUM LEVEL 8.2 MG/DL (8.3-10.6); CARBON DIOXIDE LEVEL 35 MMOL/L (20-31); CHLORIDE LEVEL 95 MMOL/L (98-107); CREATININE FOR GFR 0.62 MG/DL (0.70-1.30); GLOMERULAR FILTRATION RATE > 60.0 (>42); GLUCOSE, FASTING 98 MG/DL (74-106); MAGNESIUM LEVEL 2.4 MG/DL (1.8-2.4); POTASSIUM SERUM 4.2 MMOL/L (3.5-5.1); SODIUM LEVEL 134 MMOL/L (136-145)
[2023-06-26] MEDS: ESCITALOPRAM OXALATE 10 MG TAB (LEXAPRO) PEG SCH (08:35)
[2023-06-26] MEDS: SENNA SYRUP 15 ML UDC PEG SCH (08:40)
[2023-06-26] MEDS: FUROSEMIDE 40MG/4ML VIAL IV SCH (08:41)
[2023-06-26] MEDS: PANTOPRAZOLE 40MG VIAL IV SCH (08:52)
[2023-06-26] MEDS: DOCUSATE SOD LIQ 100MG/10ML UDC GT SCH (08:53)
[2023-06-26] MEDS: CLOTRIMAZOLE 1% TOPICAL CREAM 30GM TOP SCH ×2 (08:53→21:17)
[2023-06-26] MEDS: dexAMETHasone 20MG/5ML VIAL IV SCH (08:53)
[2023-06-26] MEDS: AZITHROMYCIN INJ 500 MG, VIAL MATE ADAPTER 1 EACH in NS 250 ML IV SCH (10:00)
[2023-06-26] MEDS: RIVAROXABAN 20MG TAB (XARELTO) PEG SCH (18:08)
[2023-06-26] MEDS: BARICITINIB 2MG TABLET (OLUMIANT) FOR EUA PO SCH (21:18)
[2023-06-26] MEDS: ALPRAZolam 0.25 MG TAB PEG PRN (22:05)
[2023-06-27] VITALS (22 sets, daily range): BP systolic 98–119; BP diastolic 58–80; TEMP 97.3–98.6; O2SAT 88–99
[2023-06-27 06:15] LABS: BASO # 0.1 10^3/uL (0.0-0.2); BASO % 0.3 % (0.0-1.0); EOS # 0.4 10^3/uL (0.0-0.5); EOS % 1.9 % (0.0-3.0); HEMATOCRIT 42.9 % (42.0-52.0); HEMOGLOBIN 14.6 g/dl (13.5-17.5); LYMPH # 0.8 10^3/uL (1.5-5.0); LYMPH % 4.4 % (24.0-44.0); MEAN CORPUSCULAR HEMOGLOBIN 32.2 pg (27.0-33.0); MEAN CORPUSCULAR VOLUME 94.5 fl (80.0-96.0); MONO # 1.4 10^3/uL (0.0-0.8); NEUTROPHILS # 16.1 10^3/uL (1.5-8.5); NEUTROPHILS % 83.7 % (36.0-66.0); RED BLOOD COUNT 4.54 10^6/uL (4.30-6.10); WHITE BLOOD COUNT 19.2 10^3/uL (4.0-10.0)
[2023-06-27 06:16] LABS: PLATELET COUNT, AUTOMATED 80 10^3/uL (150-450)
[2023-06-27 06:39] LABS: ALBUMIN 2.4 G/DL (3.2-5.2); ALKALINE PHOSPHATASE 206 U/L (46-116); ALT/SGPT 74 U/L (7.0-40); AST/SGOT 62 U/L (<34); BLOOD UREA NITROGEN 39 MG/DL (9-23); CALCIUM LEVEL 8.2 MG/DL (8.3-10.6); CARBON DIOXIDE LEVEL 33 MMOL/L (20-31); CHLORIDE LEVEL 97 MMOL/L (98-107); CREATININE FOR GFR 0.58 MG/DL (0.70-1.30); GLOMERULAR FILTRATION RATE > 60.0 (>42); GLUCOSE, FASTING 171 MG/DL (74-106); MAGNESIUM LEVEL 2.3 MG/DL (1.8-2.4); POTASSIUM SERUM 3.8 MMOL/L (3.5-5.1); SODIUM LEVEL 136 MMOL/L (136-145)
[2023-06-27] MEDS: CEFEPIME HCL 2 GM in D5W MINI-BAG PLUS 50 ML IV SCH ×3 (08:15→23:17)
[2023-06-27] MEDS: PANTOPRAZOLE 40MG VIAL IV SCH (08:16)
[2023-06-27] MEDS: ESCITALOPRAM OXALATE 10 MG TAB (LEXAPRO) PEG SCH (08:16)
[2023-06-27] MEDS: FUROSEMIDE 40MG/4ML VIAL IV SCH (08:17)
[2023-06-27] MEDS: SENNA SYRUP 15 ML UDC PEG SCH (09:00)
[2023-06-27] MEDS: CLOTRIMAZOLE 1% TOPICAL CREAM 30GM TOP SCH ×2 (09:00→20:11)
[2023-06-27] MEDS: DOCUSATE SOD LIQ 100MG/10ML UDC GT SCH (09:00)
[2023-06-27] MEDS: AZITHROMYCIN INJ 500 MG, VIAL MATE ADAPTER 1 EACH in NS 250 ML IV SCH (11:09)
[2023-06-27] MEDS: RIVAROXABAN 20MG TAB (XARELTO) PEG SCH (18:43)
[2023-06-27] MEDS: ALPRAZolam 0.25 MG TAB PEG PRN (22:29)
[2023-06-28] VITALS (13 sets, daily range): BP systolic 102–119; BP diastolic 55–71; TEMP 97.4–99.4; O2SAT 89–98
[2023-06-28 04:47] LABS: BASO # 0.1 10^3/uL (0.0-0.2); BASO % 0.3 % (0.0-1.0); EOS # 0.2 10^3/uL (0.0-0.5); EOS % 1.2 % (0.0-3.0); HEMATOCRIT 41.3 % (42.0-52.0); LYMPH # 0.6 10^3/uL (1.5-5.0); LYMPH % 2.9 % (24.0-44.0); MEAN CORPUSCULAR HEMOGLOBIN 31.8 pg (27.0-33.0); MEAN CORPUSCULAR HGB CONC 33.9 g/dl (32.0-36.5); MEAN CORPUSCULAR VOLUME 93.9 fl (80.0-96.0); MONO % 7.7 % (2.0-8.0); NEUTROPHILS # 17.7 10^3/uL (1.5-8.5); NEUTROPHILS % 86.2 % (36.0-66.0); PLATELET COUNT, AUTOMATED 79 10^3/uL (150-450); WHITE BLOOD COUNT 20.6 10^3/uL (4.0-10.0)
[2023-06-28 04:48] LABS: MONO # 1.6 10^3/uL (0.0-0.8)
[2023-06-28 05:10] LABS: ALBUMIN 2.3 G/DL (3.2-5.2); ALKALINE PHOSPHATASE 195 U/L (46-116); ALT/SGPT 73 U/L (7.0-40); AST/SGOT 62 U/L (<34); BLOOD UREA NITROGEN 36 MG/DL (9-23); CALCIUM LEVEL 8.2 MG/DL (8.3-10.6); CARBON DIOXIDE LEVEL 33 MMOL/L (20-31); CHLORIDE LEVEL 97 MMOL/L (98-107); CREATININE FOR GFR 0.56 MG/DL (0.70-1.30); GLOMERULAR FILTRATION RATE > 60.0 (>42); GLUCOSE, FASTING 97 MG/DL (74-106); POTASSIUM SERUM 3.9 MMOL/L (3.5-5.1); SODIUM LEVEL 137 MMOL/L (136-145); TOTAL PROTEIN 5.8 G/DL (5.7-8.2)
[2023-06-28] MEDS: SENNA SYRUP 15 ML UDC PEG SCH (08:04)
[2023-06-28] MEDS: DOCUSATE SOD LIQ 100MG/10ML UDC GT SCH (08:04)
[2023-06-28] MEDS: CEFEPIME HCL 2 GM in D5W MINI-BAG PLUS 50 ML IV SCH ×2 (08:16→15:28)
[2023-06-28] MEDS: PANTOPRAZOLE 40MG VIAL IV SCH (08:17)
[2023-06-28] MEDS: ESCITALOPRAM OXALATE 10 MG TAB (LEXAPRO) PEG SCH (08:17)
[2023-06-28] MEDS: CLOTRIMAZOLE 1% TOPICAL CREAM 30GM TOP SCH ×2 (08:17→20:28)
[2023-06-28] MEDS: AZITHROMYCIN INJ 500 MG, VIAL MATE ADAPTER 1 EACH in NS 250 ML IV SCH (08:18)
[2023-06-28] MEDS: RIVAROXABAN 20MG TAB (XARELTO) PEG SCH (17:06)
[2023-06-28] MEDS: ALPRAZolam 0.25 MG TAB PEG PRN (20:28)
[2023-06-29] VITALS (19 sets, daily range): BP systolic 102–135; BP diastolic 59–79; TEMP 97.8–99; O2SAT 87–97
[2023-06-29] MEDS: CEFEPIME HCL 2 GM in D5W MINI-BAG PLUS 50 ML IV SCH ×3 (00:08→17:27)
[2023-06-29 04:47] LABS: BASO % 0.2 % (0.0-1.0); EOS # 0.2 10^3/uL (0.0-0.5); HEMATOCRIT 40.4 % (42.0-52.0); HEMOGLOBIN 13.5 g/dl (13.5-17.5); LYMPH # 0.5 10^3/uL (1.5-5.0); LYMPH % 3.3 % (24.0-44.0); MEAN CORPUSCULAR HEMOGLOBIN 31.7 pg (27.0-33.0); MEAN CORPUSCULAR HGB CONC 33.4 g/dl (32.0-36.5); MEAN CORPUSCULAR VOLUME 94.8 fl (80.0-96.0); MONO # 1.3 10^3/uL (0.0-0.8); MONO % 7.9 % (2.0-8.0); NEUTROPHILS # 14.1 10^3/uL (1.5-8.5); NEUTROPHILS % 86.6 % (36.0-66.0); RED BLOOD COUNT 4.26 10^6/uL (4.30-6.10); WHITE BLOOD COUNT 16.3 10^3/uL (4.0-10.0)
[2023-06-29 04:52] LABS: PLATELET COUNT, AUTOMATED 76 10^3/uL (150-450)
[2023-06-29 05:09] LABS: ALBUMIN 2.3 G/DL (3.2-5.2); ALKALINE PHOSPHATASE 173 U/L (46-116); ALT/SGPT 64 U/L (7.0-40); AST/SGOT 52 U/L (<34); BILIRUBIN,TOTAL 0.9 MG/DL (0.3-1.2); BLOOD UREA NITROGEN 30 MG/DL (9-23); CALCIUM LEVEL 8.3 MG/DL (8.3-10.6); CARBON DIOXIDE LEVEL 34 MMOL/L (20-31); CHLORIDE LEVEL 99 MMOL/L (98-107); CREATININE FOR GFR 0.63 MG/DL (0.70-1.30); GLOMERULAR FILTRATION RATE > 60.0 (>42); GLUCOSE, FASTING 103 MG/DL (74-106); POTASSIUM SERUM 4.2 MMOL/L (3.5-5.1); SODIUM LEVEL 135 MMOL/L (136-145); TOTAL PROTEIN 5.6 G/DL (5.7-8.2)
[2023-06-29] MEDS: SENNA SYRUP 15 ML UDC PEG SCH (08:06)
[2023-06-29] MEDS: AZITHROMYCIN INJ 500 MG, VIAL MATE ADAPTER 1 EACH in NS 250 ML IV SCH (08:06)
[2023-06-29] MEDS: PANTOPRAZOLE 40MG VIAL IV SCH (08:07)
[2023-06-29] MEDS: predniSONE 10MG TAB PO SCH (08:07)
[2023-06-29] MEDS: DOCUSATE SOD LIQ 100MG/10ML UDC GT SCH (08:07)
[2023-06-29] MEDS: ESCITALOPRAM OXALATE 10 MG TAB (LEXAPRO) PEG SCH (08:08)
[2023-06-29] MEDS: CLOTRIMAZOLE 1% TOPICAL CREAM 30GM TOP SCH ×2 (08:09→20:37)
[2023-06-29] MEDS: RIVAROXABAN 20MG TAB (XARELTO) PEG SCH (17:28)
[2023-06-30] VITALS (16 sets, daily range): BP systolic 99–143; BP diastolic 57–78; TEMP 97.7–98.3; O2SAT 82–98
[2023-06-30] MEDS: CEFEPIME HCL 2 GM in D5W MINI-BAG PLUS 50 ML IV SCH ×3 (00:29→17:09)
[2023-06-30 04:58] LABS: BASO # 0.1 10^3/uL (0.0-0.2); BASO % 0.3 % (0.0-1.0); EOS # 0.2 10^3/uL (0.0-0.5); EOS % 1.3 % (0.0-3.0); HEMATOCRIT 39.5 % (42.0-52.0); HEMOGLOBIN 13.1 g/dl (13.5-17.5); LYMPH # 0.5 10^3/uL (1.5-5.0); LYMPH % 2.7 % (24.0-44.0); MEAN CORPUSCULAR HEMOGLOBIN 31.5 pg (27.0-33.0); MEAN CORPUSCULAR HGB CONC 33.2 g/dl (32.0-36.5); MONO # 1.2 10^3/uL (0.0-0.8); MONO % 7.1 % (2.0-8.0); NEUTROPHILS # 15.2 10^3/uL (1.5-8.5); NEUTROPHILS % 87.7 % (36.0-66.0); RED BLOOD COUNT 4.16 10^6/uL (4.30-6.10); WHITE BLOOD COUNT 17.4 10^3/uL (4.0-10.0)
[2023-06-30 05:12] LABS: PLATELET COUNT, AUTOMATED 78 10^3/uL (150-450)
[2023-06-30 05:33] LABS: ALBUMIN 2.2 G/DL (3.2-5.2); ALKALINE PHOSPHATASE 178 U/L (46-116); ALT/SGPT 63 U/L (7.0-40); AST/SGOT 52 U/L (<34); BILIRUBIN,TOTAL 0.9 MG/DL (0.3-1.2); BLOOD UREA NITROGEN 25 MG/DL (9-23); CALCIUM LEVEL 8.3 MG/DL (8.3-10.6); CARBON DIOXIDE LEVEL 32 MMOL/L (20-31); CHLORIDE LEVEL 102 MMOL/L (98-107); CREATININE FOR GFR 0.57 MG/DL (0.70-1.30); GLOMERULAR FILTRATION RATE > 60.0 (>42); GLUCOSE, FASTING 93 MG/DL (74-106); POTASSIUM SERUM 4.2 MMOL/L (3.5-5.1); SODIUM LEVEL 137 MMOL/L (136-145); TOTAL PROTEIN 5.4 G/DL (5.7-8.2)
[2023-06-30 05:41] LABS: ABG BASE EXCESS 6.7 (-2.0-2.0); ABG HCO3 29.6 MMOL/L (22.0-26.0); ABG O2 SATURATION 95.2 % (95.0-99.0); ABG PARTIAL PRESSURE CO2 36.3 mmHg (35.0-45.0); ABG PARTIAL PRESSURE O2 70.5 mmHg (75.0-100.0); ABG STANDARD HCO3 30.5 MMOL/L. (22.0-26.0); ABG TOTAL CO2 30.7 MMOL/L (23.0-31.0); ABG pH (ARTERIAL) 7.529 UNITS (7.350-7.450)
[2023-06-30] MEDS: predniSONE 10MG TAB PO SCH (07:53)
[2023-06-30] MEDS: SENNA SYRUP 15 ML UDC PEG SCH (07:53)
[2023-06-30] MEDS: PANTOPRAZOLE 40MG VIAL IV SCH (07:54)
[2023-06-30] MEDS: ESCITALOPRAM OXALATE 10 MG TAB (LEXAPRO) PEG SCH (07:54)
[2023-06-30] MEDS: CLOTRIMAZOLE 1% TOPICAL CREAM 30GM TOP SCH ×2 (08:02→21:08)
[2023-06-30] MEDS: DOCUSATE SOD LIQ 100MG/10ML UDC GT SCH (09:00)
[2023-06-30] MEDS: AZITHROMYCIN INJ 500 MG, VIAL MATE ADAPTER 1 EACH in NS 250 ML IV SCH (10:48)
[2023-06-30] MEDS: RIVAROXABAN 20MG TAB (XARELTO) PEG SCH (17:10)
[2023-06-30] MEDS: ALPRAZolam 0.25 MG TAB PEG PRN (20:35)
[2023-07-01] VITALS (7 sets, daily range): BP systolic 95–111; BP diastolic 63–71; TEMP 97.5–98.3; O2SAT 91–95
[2023-07-01] MEDS: CEFEPIME HCL 2 GM in D5W MINI-BAG PLUS 50 ML IV SCH (00:47)
[2023-07-01] MEDS: predniSONE 10MG TAB PO SCH (09:05)
[2023-07-01] MEDS: DOCUSATE SOD LIQ 100MG/10ML UDC GT SCH (09:05)
[2023-07-01] MEDS: SENNA SYRUP 15 ML UDC PEG SCH (09:05)
[2023-07-01] MEDS: PANTOPRAZOLE 40MG VIAL IV SCH (09:05)
[2023-07-01] MEDS: ESCITALOPRAM OXALATE 10 MG TAB (LEXAPRO) PEG SCH (09:05)
[2023-07-01] MEDS: CLOTRIMAZOLE 1% TOPICAL CREAM 30GM TOP SCH ×2 (09:06→20:06)
[2023-07-01] MEDS: RIVAROXABAN 20MG TAB (XARELTO) PEG SCH (17:24)
[2023-07-01] MEDS: ALPRAZolam 0.25 MG TAB PEG PRN (20:06)
[2023-07-02 05:33] VITALS: BP 102/62; TEMP 97.5; O2SAT 91
[2023-07-02] MEDS: ESCITALOPRAM OXALATE 10 MG TAB (LEXAPRO) PEG SCH (08:17)
[2023-07-02] MEDS: PANTOPRAZOLE 40MG VIAL IV SCH (08:17)
[2023-07-02] MEDS: CLOTRIMAZOLE 1% TOPICAL CREAM 30GM TOP SCH ×2 (08:18→20:53)
[2023-07-02] MEDS: predniSONE 10MG TAB PO SCH (08:18)
[2023-07-02] MEDS: DOCUSATE SOD LIQ 100MG/10ML UDC GT SCH (08:37)
[2023-07-02] MEDS: SENNA SYRUP 15 ML UDC PEG SCH (08:37)
[2023-07-02 14:00] VITALS: BP 109/65; TEMP 98.1; O2SAT 80; O2SAT 90
[2023-07-02 14:10] VITALS: O2SAT 90
[2023-07-02] MEDS: RIVAROXABAN 20MG TAB (XARELTO) PEG SCH (17:51)
[2023-07-02] MEDS: COMBIVENT RESPIMAT 100-20MCG INHALER 4GM INH SCH ×2 (19:58→23:11)
[2023-07-02] MEDS: guaiFENesin SYRUP 200MG 10ML UDC PO SCH (20:53)
[2023-07-02] MEDS ORDERED: guaiFENesin ER TABLET 600 MG TAB PO SCH (21:00)
[2023-07-02 22:00] VITALS: BP 118/79; TEMP 98; O2SAT 97
[2023-07-02 22:15] VITALS: O2SAT 94
[2023-07-03] VITALS (14 sets, daily range): BP systolic 97–110; BP diastolic 64–68; TEMP 97.7–98.6; O2SAT 88–97
[2023-07-03] MEDS: COMBIVENT RESPIMAT 100-20MCG INHALER 4GM INH SCH ×6 (03:02→23:15)
[2023-07-03 06:02] LABS: BASO # 0.1 10^3/uL (0.0-0.2); BASO % 0.6 % (0.0-1.0); EOS # 0.3 10^3/uL (0.0-0.5); EOS % 3.5 % (0.0-3.0); HEMATOCRIT 38.4 % (42.0-52.0); HEMOGLOBIN 12.8 g/dl (13.5-17.5); LYMPH # 0.5 10^3/uL (1.5-5.0); LYMPH % 6.2 % (24.0-44.0); MEAN CORPUSCULAR HEMOGLOBIN 31.4 pg (27.0-33.0); MEAN CORPUSCULAR HGB CONC 33.3 g/dl (32.0-36.5); MEAN CORPUSCULAR VOLUME 94.1 fl (80.0-96.0); MONO # 0.8 10^3/uL (0.0-0.8); NEUTROPHILS # 6.4 10^3/uL (1.5-8.5); NEUTROPHILS % 78.8 % (36.0-66.0); RED BLOOD COUNT 4.08 10^6/uL (4.30-6.10); WHITE BLOOD COUNT 8.1 10^3/uL (4.0-10.0)
[2023-07-03 06:06] LABS: PLATELET COUNT, AUTOMATED 90 10^3/uL (150-450)
[2023-07-03] MEDS: DOCUSATE SOD LIQ 100MG/10ML UDC GT SCH (08:44)
[2023-07-03] MEDS: SENNA SYRUP 15 ML UDC PEG SCH (08:44)
[2023-07-03] MEDS: ESCITALOPRAM OXALATE 10 MG TAB (LEXAPRO) PEG SCH (08:45)
[2023-07-03] MEDS: guaiFENesin SYRUP 200MG 10ML UDC PO SCH ×4 (08:45→21:00)
[2023-07-03] MEDS: predniSONE 10MG TAB PO SCH (08:45)
[2023-07-03] MEDS: PANTOPRAZOLE 40MG VIAL IV SCH (08:45)
[2023-07-03] MEDS: CLOTRIMAZOLE 1% TOPICAL CREAM 30GM TOP SCH ×2 (08:46→21:00)
[2023-07-03] MEDS ORDERED: FUROSEMIDE 20 MG TAB PO ONE (12:35)
[2023-07-03] MEDS ORDERED: MIDODRINE 5 MG TAB PO ONE (12:35)
[2023-07-03] MEDS: RIVAROXABAN 20MG TAB (XARELTO) PEG SCH (17:29)
[2023-07-04] VITALS (13 sets, daily range): BP systolic 116; BP diastolic 72; TEMP 97.7; O2SAT 81–96
[2023-07-04] MEDS: COMBIVENT RESPIMAT 100-20MCG INHALER 4GM INH SCH ×6 (02:06→23:11)
[2023-07-04] MEDS: predniSONE 10MG TAB PO SCH (08:51)
[2023-07-04] MEDS: ESCITALOPRAM OXALATE 10 MG TAB (LEXAPRO) PEG SCH (08:52)
[2023-07-04] MEDS: SENNA SYRUP 15 ML UDC PEG SCH ×2 (08:52→09:00)
[2023-07-04] MEDS: FUROSEMIDE 20 MG TAB PO SCH (08:52)
[2023-07-04] MEDS: PANTOPRAZOLE 40MG VIAL IV SCH (08:52)
[2023-07-04] MEDS: guaiFENesin SYRUP 200MG 10ML UDC PO SCH ×4 (08:53→20:56)
[2023-07-04] MEDS: DOCUSATE SOD LIQ 100MG/10ML UDC GT SCH (09:00)
[2023-07-04] MEDS: CLOTRIMAZOLE 1% TOPICAL CREAM 30GM TOP SCH ×2 (09:11→20:57)
[2023-07-04 09:53] LABS: BLOOD UREA NITROGEN 17 MG/DL (7-21); CHLORIDE LEVEL 104 MEQ/L (98-107); CREATININE FOR GFR 0.5 MG/DL (0.7-1.5); GLOMERULAR FILTRATION RATE > 60.0 (>42); GLUCOSE, FASTING 92 MG/DL; POTASSIUM SERUM 4.3 MEQ/L (3.6-5.0); SODIUM LEVEL 140 MEQ/L (134-153)
[2023-07-04 09:54] LABS: CALCIUM LEVEL 8.4 MG/DL (8.8-10.2); CARBON DIOXIDE LEVEL 26 MEQ/L (22-30)
[2023-07-04] MEDS ORDERED: PROMETHAZINE 25MG/ML 1ML VIAL IV ONE (09:55)
[2023-07-04] MEDS: RIVAROXABAN 20MG TAB (XARELTO) PEG SCH (17:01)
[2023-07-04] MEDS: ALPRAZolam 0.25 MG TAB PEG PRN (20:56)
[2023-07-05] MEDS: COMBIVENT RESPIMAT 100-20MCG INHALER 4GM INH SCH ×6 (04:28→23:12)
[2023-07-05 04:30] VITALS: O2SAT 96
[2023-07-05 05:20] VITALS: BP 101/72; TEMP 99; O2SAT 92
[2023-07-05] MEDS: predniSONE 10MG TAB PO SCH (08:16)
[2023-07-05] MEDS: PANTOPRAZOLE 40MG VIAL IV SCH (08:16)
[2023-07-05] MEDS: ESCITALOPRAM OXALATE 10 MG TAB (LEXAPRO) PEG SCH (08:16)
[2023-07-05] MEDS: guaiFENesin SYRUP 200MG 10ML UDC PO SCH ×4 (08:17→21:24)
[2023-07-05] MEDS: DOCUSATE SOD LIQ 100MG/10ML UDC GT SCH (08:17)
[2023-07-05] MEDS: FUROSEMIDE 20 MG TAB PO SCH (08:17)
[2023-07-05] MEDS: SENNA SYRUP 15 ML UDC PEG SCH (08:18)
[2023-07-05] MEDS: CLOTRIMAZOLE 1% TOPICAL CREAM 30GM TOP SCH ×2 (08:19→21:24)
[2023-07-05] MEDS: OMEPRAZOLE/SODIUM BICARB 20-840MG 10ML ORAL SYRINGE GT SCH (10:36)
[2023-07-05] MEDS: RIVAROXABAN 20MG TAB (XARELTO) PEG SCH (16:26)
[2023-07-05 19:59] VITALS: O2SAT 95
[2023-07-05] MEDS: ALPRAZolam 0.25 MG TAB PEG PRN (21:24)
[2023-07-06] MEDS: COMBIVENT RESPIMAT 100-20MCG INHALER 4GM INH SCH ×4 (03:26→15:00)
[2023-07-06 05:42] VITALS: BP 112/64; TEMP 98.1; O2SAT 93
[2023-07-06 06:08] LABS: BLOOD UREA NITROGEN 15 MG/DL (9-23); CALCIUM LEVEL 8.3 MG/DL (8.3-10.6); CARBON DIOXIDE LEVEL 30 MMOL/L (20-31); CHLORIDE LEVEL 104 MMOL/L (98-107); CREATININE FOR GFR 0.53 MG/DL (0.70-1.30); GLOMERULAR FILTRATION RATE > 60.0 (>42); GLUCOSE, FASTING 91 MG/DL (74-106); SODIUM LEVEL 139 MMOL/L (136-145)
[2023-07-06] MEDS: OMEPRAZOLE/SODIUM BICARB 20-840MG 10ML ORAL SYRINGE GT SCH (08:00)
[2023-07-06] MEDS: FUROSEMIDE 20 MG TAB PO SCH (08:00)
[2023-07-06] MEDS: predniSONE 10MG TAB PO SCH (08:00)
[2023-07-06] MEDS: guaiFENesin SYRUP 200MG 10ML UDC PO SCH ×3 (08:00→16:17)
[2023-07-06] MEDS: DOCUSATE SOD LIQ 100MG/10ML UDC GT SCH (08:00)
[2023-07-06] MEDS: SENNA SYRUP 15 ML UDC PEG SCH (08:00)
[2023-07-06] MEDS: ESCITALOPRAM OXALATE 10 MG TAB (LEXAPRO) PEG SCH (08:00)
[2023-07-06] MEDS: CLOTRIMAZOLE 1% TOPICAL CREAM 30GM TOP SCH ×2 (08:01→20:04)
[2023-07-06 13:46] LABS: BLOOD UREA NITROGEN 14 MG/DL (7-21); CARBON DIOXIDE LEVEL 25 MEQ/L (22-30); CHLORIDE LEVEL 100 MEQ/L (98-107); CREATININE FOR GFR 0.5 MG/DL (0.7-1.5); GLOMERULAR FILTRATION RATE > 60.0 (>42); GLUCOSE, FASTING 110 MG/DL; POTASSIUM SERUM 4.5 MEQ/L (3.6-5.0); SODIUM LEVEL 136 MEQ/L (134-153)
[2023-07-06 13:47] LABS: CALCIUM LEVEL 8.8 MG/DL (8.8-10.2); MAGNESIUM LEVEL 1.9 MG/DL (1.7-2.2)
[2023-07-06] MEDS: RIVAROXABAN 20MG TAB (XARELTO) PEG SCH (16:17)
[2023-07-06 21:01] VITALS: O2SAT 95
[2023-07-06 21:35] VITALS: O2SAT 95
[2023-07-06] MEDS: IPRATROPIUM 0.5MG/ALBUTEROL 2.5MG INH SOL UD 3ML (DUONEB) NEB SCH (23:40)
[2023-07-06 23:45] VITALS: O2SAT 98
[2023-07-07] VITALS (9 sets, daily range): BP systolic 106; BP diastolic 70; TEMP 99; O2SAT 88–97
[2023-07-07 06:08] LABS: BLOOD UREA NITROGEN 13 MG/DL (9-23); CALCIUM LEVEL 8.3 MG/DL (8.3-10.6); CARBON DIOXIDE LEVEL 30 MMOL/L (20-31); CHLORIDE LEVEL 102 MMOL/L (98-107); CREATININE FOR GFR 0.56 MG/DL (0.70-1.30); GLOMERULAR FILTRATION RATE > 60.0 (>42); GLUCOSE, FASTING 92 MG/DL (74-106); SODIUM LEVEL 138 MMOL/L (136-145)
[2023-07-07] MEDS: IPRATROPIUM 0.5MG/ALBUTEROL 2.5MG INH SOL UD 3ML (DUONEB) NEB SCH ×3 (07:48→23:08)
[2023-07-07] MEDS: OMEPRAZOLE/SODIUM BICARB 20-840MG 10ML ORAL SYRINGE GT SCH (08:34)
[2023-07-07] MEDS: DOCUSATE SOD LIQ 100MG/10ML UDC GT SCH ×2 (08:34→08:36)
[2023-07-07] MEDS: SENNA SYRUP 15 ML UDC PEG SCH ×2 (08:34→08:36)
[2023-07-07] MEDS: FUROSEMIDE 20 MG TAB PO SCH (08:35)
[2023-07-07] MEDS: ESCITALOPRAM OXALATE 10 MG TAB (LEXAPRO) PEG SCH (08:35)
[2023-07-07] MEDS: predniSONE 5 MG TAB PO SCH (08:35)
[2023-07-07] MEDS: CLOTRIMAZOLE 1% TOPICAL CREAM 30GM TOP SCH ×2 (08:36→20:29)
[2023-07-07] MEDS: RIVAROXABAN 20MG TAB (XARELTO) PEG SCH (17:35)
[2023-07-08 04:50] VITALS: BP 101/67; TEMP 97.9; O2SAT 95
[2023-07-08 06:59] LABS: PROCALCITONIN 0.07 NG/ML (0.0-0.08)
[2023-07-08 07:14] LABS: BLOOD UREA NITROGEN 12 MG/DL (9-23); CALCIUM LEVEL 8.2 MG/DL (8.3-10.6); CARBON DIOXIDE LEVEL 32 MMOL/L (20-31); CHLORIDE LEVEL 102 MMOL/L (98-107); CREATININE FOR GFR 0.59 MG/DL (0.70-1.30); GLOMERULAR FILTRATION RATE > 60.0 (>42); GLUCOSE, FASTING 93 MG/DL (74-106); POTASSIUM SERUM 4.2 MMOL/L (3.5-5.1); SODIUM LEVEL 139 MMOL/L (136-145)
[2023-07-08] MEDS: IPRATROPIUM 0.5MG/ALBUTEROL 2.5MG INH SOL UD 3ML (DUONEB) NEB SCH ×3 (07:34→23:07)
[2023-07-08] MEDS: DOCUSATE SOD LIQ 100MG/10ML UDC GT SCH (09:00)
[2023-07-08] MEDS: SENNA SYRUP 15 ML UDC PEG SCH (09:00)
[2023-07-08] MEDS: FUROSEMIDE 20 MG TAB PO SCH (09:00)
[2023-07-08 09:05] VITALS: O2SAT 93
[2023-07-08] MEDS: ESCITALOPRAM OXALATE 10 MG TAB (LEXAPRO) PEG SCH (09:29)
[2023-07-08] MEDS: predniSONE 5 MG TAB PO SCH (09:30)
[2023-07-08] MEDS: CLOTRIMAZOLE 1% TOPICAL CREAM 30GM TOP SCH ×2 (09:31→20:45)
[2023-07-08] MEDS: OMEPRAZOLE/SODIUM BICARB 20-840MG 10ML ORAL SYRINGE GT SCH (13:47)
[2023-07-08] MEDS: RIVAROXABAN 20MG TAB (XARELTO) PEG SCH (17:24)
[2023-07-09 06:00] VITALS: BP 105/70; TEMP 99; O2SAT 95
[2023-07-09 06:15] LABS: BLOOD UREA NITROGEN 13 MG/DL (9-23); CALCIUM LEVEL 8.1 MG/DL (8.3-10.6); CARBON DIOXIDE LEVEL 29 MMOL/L (20-31); CHLORIDE LEVEL 105 MMOL/L (98-107); CREATININE FOR GFR 0.54 MG/DL (0.70-1.30); GLOMERULAR FILTRATION RATE > 60.0 (>42); GLUCOSE, FASTING 92 MG/DL (74-106); POTASSIUM SERUM 4.2 MMOL/L (3.5-5.1); SODIUM LEVEL 140 MMOL/L (136-145)
[2023-07-09] MEDS: IPRATROPIUM 0.5MG/ALBUTEROL 2.5MG INH SOL UD 3ML (DUONEB) NEB SCH ×3 (07:31→23:19)
[2023-07-09] MEDS: CLOTRIMAZOLE 1% TOPICAL CREAM 30GM TOP SCH ×2 (08:36→20:54)
[2023-07-09] MEDS: OMEPRAZOLE/SODIUM BICARB 20-840MG 10ML ORAL SYRINGE GT SCH (08:36)
[2023-07-09] MEDS: DOCUSATE SOD LIQ 100MG/10ML UDC GT SCH (08:36)
[2023-07-09] MEDS: SENNA SYRUP 15 ML UDC PEG SCH (08:36)
[2023-07-09] MEDS: ESCITALOPRAM OXALATE 10 MG TAB (LEXAPRO) PEG SCH (08:37)
[2023-07-09] MEDS: predniSONE 5 MG TAB PO SCH (08:37)
[2023-07-09] MEDS: FUROSEMIDE 20 MG TAB PO SCH (08:40)
[2023-07-09 08:41] VITALS: BP 98/58
[2023-07-09] MEDS: RIVAROXABAN 20MG TAB (XARELTO) PEG SCH (17:03)
[2023-07-09 23:19] VITALS: O2SAT 92
[2023-07-10 05:35] VITALS: BP 110/60; TEMP 97.9; O2SAT 93
[2023-07-10 06:40] LABS: BLOOD UREA NITROGEN 12 MG/DL (9-23); CALCIUM LEVEL 8.4 MG/DL (8.3-10.6); CARBON DIOXIDE LEVEL 28 MMOL/L (20-31); CHLORIDE LEVEL 106 MMOL/L (98-107); CREATININE FOR GFR 0.53 MG/DL (0.70-1.30); GLOMERULAR FILTRATION RATE > 60.0 (>42); GLUCOSE, FASTING 96 MG/DL (74-106); POTASSIUM SERUM 4.3 MMOL/L (3.5-5.1); SODIUM LEVEL 141 MMOL/L (136-145)
[2023-07-10] MEDS: IPRATROPIUM 0.5MG/ALBUTEROL 2.5MG INH SOL UD 3ML (DUONEB) NEB SCH ×3 (07:18→23:52)
[2023-07-10] MEDS: SENNA SYRUP 15 ML UDC PEG SCH (09:00)
[2023-07-10] MEDS: DOCUSATE SOD LIQ 100MG/10ML UDC GT SCH (09:00)
[2023-07-10] MEDS: predniSONE 5 MG TAB PO SCH (09:23)
[2023-07-10] MEDS: CLOTRIMAZOLE 1% TOPICAL CREAM 30GM TOP SCH ×2 (09:23→21:21)
[2023-07-10] MEDS: ESCITALOPRAM OXALATE 10 MG TAB (LEXAPRO) PEG SCH (09:23)
[2023-07-10] MEDS: OMEPRAZOLE/SODIUM BICARB 20-840MG 10ML ORAL SYRINGE GT SCH (09:24)
[2023-07-10] MEDS: FUROSEMIDE 20 MG TAB PO SCH (09:24)
[2023-07-10] MEDS: RIVAROXABAN 20MG TAB (XARELTO) PEG SCH (20:15)
[2023-07-11 05:20] VITALS: BP 108/72; TEMP 98.2; O2SAT 94
[2023-07-11 06:51] LABS: BLOOD UREA NITROGEN 11 MG/DL (9-23); CALCIUM LEVEL 8.2 MG/DL (8.3-10.6); CARBON DIOXIDE LEVEL 27 MMOL/L (20-31); CHLORIDE LEVEL 103 MMOL/L (98-107); CREATININE FOR GFR 0.55 MG/DL (0.70-1.30); GLOMERULAR FILTRATION RATE > 60.0 (>42); GLUCOSE, FASTING 93 MG/DL (74-106); POTASSIUM SERUM 4.1 MMOL/L (3.5-5.1); SODIUM LEVEL 139 MMOL/L (136-145)
[2023-07-11] MEDS: IPRATROPIUM 0.5MG/ALBUTEROL 2.5MG INH SOL UD 3ML (DUONEB) NEB SCH ×3 (07:41→23:21)
[2023-07-11] MEDS: DOCUSATE SOD LIQ 100MG/10ML UDC GT SCH (09:00)
[2023-07-11] MEDS: SENNA SYRUP 15 ML UDC PEG SCH (09:00)
[2023-07-11] MEDS: predniSONE 5 MG TAB PO SCH (09:08)
[2023-07-11] MEDS: OMEPRAZOLE/SODIUM BICARB 20-840MG 10ML ORAL SYRINGE GT SCH (09:08)
[2023-07-11] MEDS: CLOTRIMAZOLE 1% TOPICAL CREAM 30GM TOP SCH ×2 (09:09→20:30)
[2023-07-11] MEDS: FUROSEMIDE 20 MG TAB PO SCH (09:09)
[2023-07-11] MEDS: ESCITALOPRAM OXALATE 10 MG TAB (LEXAPRO) PEG SCH (09:10)
[2023-07-11] MEDS: RIVAROXABAN 20MG TAB (XARELTO) PEG SCH (18:00)
[2023-07-12 05:49] VITALS: BP 110/60; TEMP 98.4; O2SAT 92
[2023-07-12 06:28] LABS: BLOOD UREA NITROGEN 10 MG/DL (9-23); CALCIUM LEVEL 8.4 MG/DL (8.3-10.6); CARBON DIOXIDE LEVEL 29 MMOL/L (20-31); CHLORIDE LEVEL 105 MMOL/L (98-107); CREATININE FOR GFR 0.56 MG/DL (0.70-1.30); GLOMERULAR FILTRATION RATE > 60.0 (>42); GLUCOSE, FASTING 96 MG/DL (74-106); POTASSIUM SERUM 4.2 MMOL/L (3.5-5.1); SODIUM LEVEL 142 MMOL/L (136-145)
[2023-07-12] MEDS: IPRATROPIUM 0.5MG/ALBUTEROL 2.5MG INH SOL UD 3ML (DUONEB) NEB SCH ×3 (07:15→23:27)
[2023-07-12] MEDS: SENNA SYRUP 15 ML UDC PEG SCH (09:00)
[2023-07-12] MEDS: DOCUSATE SOD LIQ 100MG/10ML UDC GT SCH (09:00)
[2023-07-12] MEDS: FUROSEMIDE 20 MG TAB PO SCH (09:00)
[2023-07-12] MEDS: ESCITALOPRAM OXALATE 10 MG TAB (LEXAPRO) PEG SCH (09:29)
[2023-07-12] MEDS: predniSONE 5 MG TAB PO SCH (09:29)
[2023-07-12] MEDS: OMEPRAZOLE/SODIUM BICARB 20-840MG 10ML ORAL SYRINGE GT SCH (09:30)
[2023-07-12] MEDS: CLOTRIMAZOLE 1% TOPICAL CREAM 30GM TOP SCH ×2 (09:30→20:02)
[2023-07-12] MEDS: RIVAROXABAN 20MG TAB (XARELTO) PEG SCH (17:33)
[2023-07-13 06:00] VITALS: BP 116/76; TEMP 98.8; O2SAT 92
[2023-07-13] MEDS: IPRATROPIUM 0.5MG/ALBUTEROL 2.5MG INH SOL UD 3ML (DUONEB) NEB SCH ×3 (07:10→23:13)
[2023-07-13] MEDS: SENNA SYRUP 15 ML UDC PEG SCH (09:00)
[2023-07-13] MEDS: DOCUSATE SOD LIQ 100MG/10ML UDC GT SCH (09:00)
[2023-07-13 09:05] VITALS: O2SAT 94
[2023-07-13] MEDS: OMEPRAZOLE/SODIUM BICARB 20-840MG 10ML ORAL SYRINGE GT SCH (09:10)
[2023-07-13] MEDS: CLOTRIMAZOLE 1% TOPICAL CREAM 30GM TOP SCH ×2 (09:10→20:47)
[2023-07-13] MEDS: ESCITALOPRAM OXALATE 10 MG TAB (LEXAPRO) PEG SCH (09:11)
[2023-07-13] MEDS: FUROSEMIDE 20 MG TAB PO SCH (09:11)
[2023-07-13] MEDS: predniSONE 5 MG TAB PO SCH (09:11)
[2023-07-13 16:08] VITALS: O2SAT 94
[2023-07-13] MEDS: RIVAROXABAN 20MG TAB (XARELTO) PEG SCH (17:15)
[2023-07-14 06:00] VITALS: BP 109/65; TEMP 97.9; O2SAT 95
[2023-07-14] MEDS: IPRATROPIUM 0.5MG/ALBUTEROL 2.5MG INH SOL UD 3ML (DUONEB) NEB SCH ×2 (07:18→15:29)
[2023-07-14] MEDS: OMEPRAZOLE/SODIUM BICARB 20-840MG 10ML ORAL SYRINGE GT SCH ×2 (08:16→08:41)
[2023-07-14] MEDS: SENNA SYRUP 15 ML UDC PEG SCH ×2 (08:17→08:41)
[2023-07-14] MEDS: DOCUSATE SOD LIQ 100MG/10ML UDC GT SCH ×2 (08:17→08:41)
[2023-07-14 08:20] VITALS: BP 106/62
[2023-07-14] MEDS: ESCITALOPRAM OXALATE 10 MG TAB (LEXAPRO) PEG SCH (08:20)
[2023-07-14] MEDS: FUROSEMIDE 20 MG TAB PO SCH (08:20)
[2023-07-14] MEDS: predniSONE 5 MG TAB PO SCH (08:20)
[2023-07-14] MEDS: CLOTRIMAZOLE 1% TOPICAL CREAM 30GM TOP SCH ×2 (08:20→21:38)
[2023-07-14] MEDS: RIVAROXABAN 20MG TAB (XARELTO) PEG SCH (17:05)
[2023-07-14 17:11] VITALS: O2SAT 95
[2023-07-14 17:12] VITALS: O2SAT 94
[2023-07-14 22:25] VITALS: O2SAT 93
[2023-07-15] MEDS: IPRATROPIUM 0.5MG/ALBUTEROL 2.5MG INH SOL UD 3ML (DUONEB) NEB SCH ×2 (00:48→07:08)
[2023-07-15 00:49] VITALS: O2SAT 92
[2023-07-15 05:48] VITALS: BP 111/68; TEMP 98.1; O2SAT 93
[2023-07-15] MEDS: predniSONE 5 MG TAB PO SCH (08:41)
[2023-07-15] MEDS: DOCUSATE SOD LIQ 100MG/10ML UDC GT SCH (08:42)
[2023-07-15] MEDS: FUROSEMIDE 20 MG TAB PO SCH (08:42)
[2023-07-15] MEDS: OMEPRAZOLE/SODIUM BICARB 20-840MG 10ML ORAL SYRINGE GT SCH (08:42)
[2023-07-15] MEDS: ESCITALOPRAM OXALATE 10 MG TAB (LEXAPRO) PEG SCH (08:42)
[2023-07-15] MEDS: CLOTRIMAZOLE 1% TOPICAL CREAM 30GM TOP SCH ×2 (08:42→21:15)
[2023-07-15] MEDS: SENNA SYRUP 15 ML UDC PEG SCH (08:42)
[2023-07-15 08:44] VITALS: BP 119/79
[2023-07-15 09:28] VITALS: O2SAT 93
[2023-07-15] MEDS ORDERED: COMBAER6 INH (15:08)
[2023-07-15] MEDS: COMBIVENT RESPIMAT 100-20MCG INHALER 4GM INH SCH (15:23)
[2023-07-15] MEDS: RIVAROXABAN 20MG TAB (XARELTO) PEG SCH (17:13)
[2023-07-16] MEDS: COMBIVENT RESPIMAT 100-20MCG INHALER 4GM INH SCH ×3 (00:33→16:40)
[2023-07-16 00:36] VITALS: O2SAT 89
[2023-07-16 05:45] VITALS: BP 117/75; TEMP 97.9; O2SAT 93
[2023-07-16] MEDS: ESCITALOPRAM OXALATE 10 MG TAB (LEXAPRO) PEG SCH (08:41)
[2023-07-16] MEDS: OMEPRAZOLE/SODIUM BICARB 20-840MG 10ML ORAL SYRINGE GT SCH (08:41)
[2023-07-16] MEDS: FUROSEMIDE 20 MG TAB PO SCH (08:41)
[2023-07-16] MEDS: CLOTRIMAZOLE 1% TOPICAL CREAM 30GM TOP SCH ×2 (08:42→20:37)
[2023-07-16] MEDS: predniSONE 5 MG TAB PO SCH (08:42)
[2023-07-16] MEDS ORDERED: FLUZONE HIGH DOSE(65YR UP)QUAD/PF 240MCG/0.7ML SYRINGE IM.IMMUN ONE (09:00)
[2023-07-16 12:31] VITALS: O2SAT 91
[2023-07-16] MEDS: RIVAROXABAN 20MG TAB (XARELTO) PEG SCH (18:25)
[2023-07-17] MEDS: COMBIVENT RESPIMAT 100-20MCG INHALER 4GM INH SCH ×2 (00:31→07:32)
[2023-07-17 05:00] VITALS: BP 118/67; TEMP 97.9; O2SAT 93
[2023-07-17] MEDS ORDERED: FURO20TA2 PO (08:49)
[2023-07-17] MEDS ORDERED: PRED25TA PO (08:51)
[2023-07-17] MEDS ORDERED: ALBU2.5V10 NEB (08:51)
[2023-07-17] MEDS: FUROSEMIDE 20 MG TAB PO SCH (09:10)
[2023-07-17] MEDS: OMEPRAZOLE/SODIUM BICARB 20-840MG 10ML ORAL SYRINGE GT SCH (09:10)
[2023-07-17] MEDS: predniSONE 5 MG TAB PO SCH (09:10)
[2023-07-17] MEDS: ESCITALOPRAM OXALATE 10 MG TAB (LEXAPRO) PEG SCH (09:10)
[2023-07-17] MEDS: CLOTRIMAZOLE 1% TOPICAL CREAM 30GM TOP SCH (09:12)
[2023-07-17] MEDS ORDERED: IPRA0.00 INH (11:50)
[2023-07-20] MEDS ORDERED: IPRA2IN INH (07:49)
== END 2023-07-17 13:23 | disposition home or self-care (01) | DRG 177 ==
LOC: M ED 16:57 → M ED INP 18:53 → M ICU 20:43 → M MSPAV 07-01 23:13
PROVIDERS: ADMIT Family Medicine; ATTEND Internal Medicine Nephrology
DX: U07.1 COVID-19 (principal); J12.82 Pneumonia due to coronavirus disease 2019; J96.01 Acute respiratory failure with hypoxia; C15.9 Malignant neoplasm of esophagus, unspecified; E87.4 Mixed disorder of acid-base balance; E87.1 Hypo-osmolality and hyponatremia; I50.32 Chronic diastolic (congestive) heart failure; C79.51 Secondary malignant neoplasm of bone; D84.9 Immunodeficiency, unspecified; J90 Pleural effusion, not elsewhere classified; G62.81 Critical illness polyneuropathy; F32.A Depression, unspecified; F41.9 Anxiety disorder, unspecified; R19.7 Diarrhea, unspecified; Z93.1 Gastrostomy status; I25.10 Atherosclerotic heart disease of native coronary artery without angina pectoris; E83.51 Hypocalcemia; R13.19 Other dysphagia; K59.00 Constipation, unspecified; R74.01 Elevation of levels of liver transaminase levels; Z92.21 Personal history of antineoplastic chemotherapy; Z95.2 Presence of prosthetic heart valve; Z79.899 Other long term (current) drug therapy; Z88.8 Allergy status to other drugs, medicaments and biological substances; Z86.718 Personal history of other venous thrombosis and embolism; Z79.01 Long term (current) use of anticoagulants; Z92.3 Personal history of irradiation; Z66 Do not resuscitate; D69.6 Thrombocytopenia, unspecified

== ENCOUNTER → 2023-08-02 | Outpatient (CLI) | payer MEDICARE, BC, OTHER ==
[~2023-08-02] MED LIST changes: +ALBU2.5V10 NEB; +COMBAER6 INH; +ESCI5SOL3 GT; +FURO20TA2 PO; +IPRA0.00 INH; +IPRA2IN INH; +PRED25TA PO
[2023-08-02 17:26] LABS: BASO # 0.1 10^3/uL (0.0-0.2); BASO % 1.1 % (0.0-1.0); EOS # 0.1 10^3/uL (0.0-0.5); EOS % 1.3 % (0.0-3.0); HEMATOCRIT 41.3 % (42.0-52.0); HEMOGLOBIN 13.4 g/dl (13.5-17.5); LYMPH # 0.9 10^3/uL (1.5-5.0); MEAN CORPUSCULAR HEMOGLOBIN 31.5 pg (27.0-33.0); MEAN CORPUSCULAR HGB CONC 32.4 g/dl (32.0-36.5); MEAN CORPUSCULAR VOLUME 96.9 fl (80.0-96.0); MONO # 1.1 10^3/uL (0.0-0.8); MONO % 17.9 % (2.0-8.0); NEUTROPHILS % 63.9 % (36.0-66.0); PLATELET COUNT, AUTOMATED 263 10^3/uL (150-450); RED BLOOD COUNT 4.26 10^6/uL (4.30-6.10); WHITE BLOOD COUNT 6.3 10^3/uL (4.0-10.0)
[2023-08-02 17:57] LABS: ALKALINE PHOSPHATASE 131 U/L (46-116); ALT/SGPT 21 U/L (7.0-40); AST/SGOT 28 U/L (<34); BILIRUBIN,TOTAL 0.4 MG/DL (0.3-1.2); BLOOD UREA NITROGEN 12 MG/DL (9-23); CALCIUM LEVEL 9.1 MG/DL (8.3-10.6); CARBON DIOXIDE LEVEL 29 MMOL/L (20-31); CHLORIDE LEVEL 100 MMOL/L (98-107); CREATININE FOR GFR 0.53 MG/DL (0.70-1.30); GLOMERULAR FILTRATION RATE > 60.0 (>42); GLUCOSE, FASTING 83 MG/DL (74-106); POTASSIUM SERUM 4.3 MMOL/L (3.5-5.1); SODIUM LEVEL 137 MMOL/L (136-145)
== END ==
LOC: M PLALAB 15:29
PROVIDERS: ATTEND Nurse Practitioner
DX: C15.9 Malignant neoplasm of esophagus, unspecified (principal)

== ENCOUNTER → 2023-08-09 | Outpatient (CLI) | payer MEDICARE, BC, OTHER ==
[~2023-08-09] MED LIST changes: +GASTROGRAFIN SOLUTION 30ML As Ordered ONE; +ISOVUE-370 76% 100ML VIAL As Ordered ONE
== END ==
LOC: M RAD 13:20
PROVIDERS: ATTEND Nurse Practitioner
DX: C15.9 Malignant neoplasm of esophagus, unspecified (principal)
CPT/HCPCS: 74177; Q9963; Q9967

== ENCOUNTER → 2023-08-23 | Outpatient (CLI) | payer MEDICARE, BC, OTHER ==
[~2023-08-23] MED LIST changes: -GASTROGRAFIN SOLUTION 30ML As Ordered ONE; -ISOVUE-370 76% 100ML VIAL As Ordered ONE
[2023-08-23 15:38] LABS: RHEUMATOID FACTOR QUANT < 3.5 IU/ML (<14)
== END ==
LOC: M PLALAB 11:10
PROVIDERS: ATTEND Internal Medicine Pulmonary Disease
DX: J84.9 Interstitial pulmonary disease, unspecified (principal)

== ENCOUNTER → 2023-08-31 | Outpatient (CLI) | payer MEDICARE, BC, OTHER | LOC: M RAD 13:29 | PROVIDERS: ATTEND Internal Medicine Pulmonary Disease | DX: R91.8 Other nonspecific abnormal finding of lung field (principal) ==

== ENCOUNTER → 2023-10-05 | Outpatient (CLI) | payer MEDICARE, BC, OTHER | LOC: M ONCM 08:03 | PROVIDERS: ATTEND Dietitian, Registered | DX: Z71.3 Dietary counseling and surveillance (principal); C15.5 Malignant neoplasm of lower third of esophagus; C79.51 Secondary malignant neoplasm of bone; Z92.21 Personal history of antineoplastic chemotherapy; Z68.31 Body mass index [BMI] 31.0-31.9, adult; Z86.16 Personal history of COVID-19; Z92.3 Personal history of irradiation; Z93.1 Gastrostomy status ==

== ENCOUNTER 2023-10-26 14:24 | Inpatient (IN) | payer MEDICARE, BC, OTHER ==
[~2023-10-26] VITALS: Ht 175.3 cm; Wt 96.6 kg
[2023-10-26 15:32] LABS: BASO # 0.1 10^3/uL (0.0-0.2); BASO % 0.4 % (0.0-1.0); EOS % 0.1 % (0.0-3.0); HEMATOCRIT 46.4 % (42.0-52.0); HEMOGLOBIN 15.6 g/dl (13.5-17.5); LYMPH # 0.8 10^3/uL (1.5-5.0); LYMPH % 4.6 % (24.0-44.0); MEAN CORPUSCULAR HEMOGLOBIN 31.1 pg (27.0-33.0); MEAN CORPUSCULAR HGB CONC 33.6 g/dl (32.0-36.5); MEAN CORPUSCULAR VOLUME 92.4 fl (80.0-96.0); MONO # 1.6 10^3/uL (0.0-0.8); MONO % 8.9 % (2.0-8.0); NEUTROPHILS % 85.4 % (36.0-66.0); PLATELET COUNT, AUTOMATED 141 10^3/uL (150-450); RED BLOOD COUNT 5.02 10^6/uL (4.30-6.10); WHITE BLOOD COUNT 17.5 10^3/uL (4.0-10.0)
[2023-10-26 15:43] LABS: CK-MB VALUE MASS < 1.0 NG/ML (<3.6); CPK CREATINE PHOSPHOKINASE 92 U/L (46-171); INR 1.3; MB/CK RELATIVE INDEX 1.08 (< OR =4); PROTHROMBIN TIME 15.8 SECONDS (12.5-14.5)
[2023-10-26 15:44] LABS: ALBUMIN 3.4 G/DL (3.2-5.2); ALKALINE PHOSPHATASE 127 U/L (46-116); ALT/SGPT 25 U/L (7.0-40); AST/SGOT 29 U/L (<34); BILIRUBIN,DIRECT 0.2 MG/DL (<0.4); BILIRUBIN,TOTAL 0.6 MG/DL (0.3-1.2); BLOOD UREA NITROGEN 16 MG/DL (9-23); CALCIUM LEVEL 8.7 MG/DL (8.3-10.6); CARBON DIOXIDE LEVEL 27 MMOL/L (20-31); CHLORIDE LEVEL 102 MMOL/L (98-107); CREATININE FOR GFR 0.73 MG/DL (0.70-1.30); GLOMERULAR FILTRATION RATE > 60.0 (>42); GLUCOSE, FASTING 103 MG/DL (74-106); POTASSIUM SERUM 4.2 MMOL/L (3.5-5.1); SODIUM LEVEL 136 MMOL/L (136-145); TOTAL PROTEIN 6.7 G/DL (5.7-8.2)
[2023-10-26 15:47] LABS: THYROID STIMULATING HORMONE 1.799 uIU/ML (0.55-4.78)
[2023-10-26] MEDS ORDERED: ISOVUE-370 76% 100ML VIAL As Ordered ONE (16:08)
[2023-10-26] MEDS: PIPERACILLIN/TAZOBACTAM SOD 4.5 GM in D5W MINI-BAG PLUS 50 ML IV ONE (16:35)
[2023-10-26] MEDS: NS 2,730 ML in IV 1 EA IV ONE (16:35)
[2023-10-26] MEDS: ACETAMINOPHEN 160MG/5ML SUSP UDC DYE-FREE PEG ONE (16:36)
[2023-10-26] MEDS ORDERED: VANCOMYCIN HCL 1,000 MG, VIAL MATE ADAPTER 1 EACH in D5W 250 ML IV ONE (17:50)
[2023-10-26] MEDS ORDERED: HOME MED LIST COMPLETE! XX SCH (18:30)
[2023-10-26 18:52] VITALS: BP 127/66; TEMP 98.2; O2SAT 96
[2023-10-26] MEDS: NS 1,000 ML IV SCH (19:15)
[2023-10-26 20:00] VITALS: BP 105/60; TEMP 98.2; O2SAT 96
[2023-10-26] MEDS: AZITHROMYCIN 250MG TABLET PEG SCH (20:58)
[2023-10-26] MEDS: VANCOMYCIN HCL 1,000 MG, VIAL MATE ADAPTER 1 EACH in D5W 250 ML IV ONE (20:58)
[2023-10-26] MEDS: ACETAMINOPHEN TAB 650MG DOSE (2X325MG) TF PRN (21:03)
[2023-10-26] MEDS: VANCOMYCIN HCL 750 MG, VIAL MATE ADAPTER 1 EACH in D5W 250 ML IV ONE (22:35)
[2023-10-26] MEDS: PIPERACILLIN/TAZOBACTAM SOD 4.5 GM in D5W MINI-BAG PLUS 50 ML IV SCH (23:56)
[2023-10-26 23:58] VITALS: BP 121/59; TEMP 99.1; O2SAT 93
[2023-10-27] VITALS (7 sets, daily range): BP systolic 110–128; BP diastolic 58–69; TEMP 98–101.5; O2SAT 90–96
[2023-10-27] MEDS ORDERED: ACETAMINOPHEN *IV* 1,000 MG in IV 1 EA IV ONE (04:00)
[2023-10-27] MEDS ORDERED: ACETAMINOPHEN TAB 650MG DOSE (2X325MG) PO ONE (04:00)
[2023-10-27 05:19] LABS: HEMATOCRIT 40.8 % (42.0-52.0); HEMOGLOBIN 13.8 g/dl (13.5-17.5); MEAN CORPUSCULAR HEMOGLOBIN 31.1 pg (27.0-33.0); MEAN CORPUSCULAR HGB CONC 33.8 g/dl (32.0-36.5); MEAN CORPUSCULAR VOLUME 91.9 fl (80.0-96.0); PLATELET COUNT, AUTOMATED 115 10^3/uL (150-450); RED BLOOD COUNT 4.44 10^6/uL (4.30-6.10); WHITE BLOOD COUNT 11.3 10^3/uL (4.0-10.0)
[2023-10-27 05:36] LABS: BLOOD UREA NITROGEN 13 MG/DL (9-23); CALCIUM LEVEL 7.6 MG/DL (8.3-10.6); CARBON DIOXIDE LEVEL 22 MMOL/L (20-31); CHLORIDE LEVEL 107 MMOL/L (98-107); CREATININE FOR GFR 0.71 MG/DL (0.70-1.30); GLOMERULAR FILTRATION RATE > 60.0 (>42); GLUCOSE, FASTING 123 MG/DL (74-106); POTASSIUM SERUM 3.9 MMOL/L (3.5-5.1); SODIUM LEVEL 137 MMOL/L (136-145)
[2023-10-27] MEDS: VANCOMYCIN HCL 750 MG, VIAL MATE ADAPTER 1 EACH in D5W 250 ML IV SCH (05:44)
[2023-10-27] MEDS: VANCOMYCIN HCL 500 MG in D5W MINI-BAG PLUS 100 ML IV SCH (06:53)
[2023-10-27] MEDS: RIVAROXABAN 20MG TAB (XARELTO) PO SCH (09:34)
[2023-10-27] MEDS: PANTOPRAZOLE 40MG VIAL IV SCH (09:34)
[2023-10-27] MEDS: ESCITALOPRAM OXALATE 10 MG TAB (LEXAPRO) PEG SCH (09:35)
[2023-10-28] VITALS (7 sets, daily range): BP systolic 122–147; BP diastolic 67–80; TEMP 97.5–99.2; O2SAT 94–98
[2023-10-28 05:58] LABS: BLOOD UREA NITROGEN 10 MG/DL (9-23); CALCIUM LEVEL 7.8 MG/DL (8.3-10.6); CARBON DIOXIDE LEVEL 22 MMOL/L (20-31); CHLORIDE LEVEL 110 MMOL/L (98-107); CREATININE FOR GFR 0.71 MG/DL (0.70-1.30); GLOMERULAR FILTRATION RATE > 60.0 (>42); GLUCOSE, FASTING 108 MG/DL (74-106); POTASSIUM SERUM 4.5 MMOL/L (3.5-5.1); SODIUM LEVEL 138 MMOL/L (136-145)
[2023-10-28 06:15] LABS: BASO # 0.1 10^3/uL (0.0-0.2); BASO % 0.9 % (0.0-1.0); EOS # 0.2 10^3/uL (0.0-0.5); EOS % 3.8 % (0.0-3.0); HEMATOCRIT 41.2 % (42.0-52.0); HEMOGLOBIN 13.9 g/dl (13.5-17.5); LYMPH # 0.7 10^3/uL (1.5-5.0); LYMPH % 12.7 % (24.0-44.0); MEAN CORPUSCULAR HGB CONC 33.7 g/dl (32.0-36.5); MONO # 1.2 10^3/uL (0.0-0.8); MONO % 20.3 % (2.0-8.0); NEUTROPHILS # 3.6 10^3/uL (1.5-8.5); RED BLOOD COUNT 4.48 10^6/uL (4.30-6.10); WHITE BLOOD COUNT 5.8 10^3/uL (4.0-10.0)
[2023-10-28 07:06] LABS: PLATELET COUNT, AUTOMATED 99 10^3/uL (150-450)
[2023-10-28 17:30] LABS: HIV 1&2 SCREEN NEGATIVE (NEGATIVE)
[2023-10-28 17:37] LABS: HEPATITIS B CORE ANTIBODY IGM NEGATIVE (NEGATIVE); HEPATITIS C VIRUS ABY INDEX < 0.02 INDEX (<0.8)
[2023-10-29 00:32] VITALS: BP 132/75; TEMP 99; O2SAT 92
[2023-10-29 04:00] VITALS: TEMP 97
[2023-10-29 05:48] LABS: HEMATOCRIT 43.1 % (42.0-52.0); HEMOGLOBIN 14.7 g/dl (13.5-17.5); MEAN CORPUSCULAR HEMOGLOBIN 30.9 pg (27.0-33.0); MEAN CORPUSCULAR HGB CONC 34.1 g/dl (32.0-36.5); MEAN CORPUSCULAR VOLUME 90.7 fl (80.0-96.0); PLATELET COUNT, AUTOMATED 124 10^3/uL (150-450); RED BLOOD COUNT 4.75 10^6/uL (4.30-6.10); WHITE BLOOD COUNT 5.5 10^3/uL (4.0-10.0)
[2023-10-29 06:11] LABS: BLOOD UREA NITROGEN 12 MG/DL (9-23); CALCIUM LEVEL 8.3 MG/DL (8.3-10.6); CARBON DIOXIDE LEVEL 24 MMOL/L (20-31); CHLORIDE LEVEL 107 MMOL/L (98-107); CREATININE FOR GFR 0.69 MG/DL (0.70-1.30); GLOMERULAR FILTRATION RATE > 60.0 (>42); GLUCOSE, FASTING 103 MG/DL (74-106); POTASSIUM SERUM 3.9 MMOL/L (3.5-5.1); SODIUM LEVEL 139 MMOL/L (136-145)
[2023-10-29 07:26] VITALS: BP 116/62; TEMP 97.3; O2SAT 95
[2023-10-29] MEDS ORDERED: LEVO1TAB40 PO (10:49)
== END 2023-10-29 13:57 | disposition home or self-care (01) | DRG 872 ==
LOC: M ED 14:24 → M ED INP 17:39 → M PCU 18:50
PROVIDERS: ADMIT Internal Medicine; ATTEND Internal Medicine
DX: A41.9 Sepsis, unspecified organism (principal); J98.11 Atelectasis; I50.32 Chronic diastolic (congestive) heart failure; D84.9 Immunodeficiency, unspecified; E87.20 Acidosis, unspecified; C15.9 Malignant neoplasm of esophagus, unspecified; C79.51 Secondary malignant neoplasm of bone; K20.90 Esophagitis, unspecified without bleeding; R13.12 Dysphagia, oropharyngeal phase; Z93.1 Gastrostomy status; F32.A Depression, unspecified; R65.20 Severe sepsis without septic shock; K80.20 Calculus of gallbladder without cholecystitis without obstruction; D69.6 Thrombocytopenia, unspecified; Z86.718 Personal history of other venous thrombosis and embolism; Z92.21 Personal history of antineoplastic chemotherapy

== ENCOUNTER → 2023-11-11 | Outpatient (CLI) | payer MEDICARE, BC, OTHER ==
[~2023-11-11] MED LIST changes: +LEVO1TAB40 PO
[2023-11-11 16:32] LABS: BASO # 0.1 10^3/uL (0.0-0.2); BASO % 1.6 % (0.0-1.0); EOS # 0.2 10^3/uL (0.0-0.5); EOS % 2.7 % (0.0-3.0); HEMATOCRIT 46.8 % (42.0-52.0); HEMOGLOBIN 15.7 g/dl (13.5-17.5); LYMPH # 1.2 10^3/uL (1.5-5.0); LYMPH % 17.9 % (24.0-44.0); MEAN CORPUSCULAR HEMOGLOBIN 30.5 pg (27.0-33.0); MEAN CORPUSCULAR HGB CONC 33.5 g/dl (32.0-36.5); MEAN CORPUSCULAR VOLUME 91.1 fl (80.0-96.0); MONO # 1.2 10^3/uL (0.0-0.8); MONO % 18.2 % (2.0-8.0); NEUTROPHILS # 3.9 10^3/uL (1.5-8.5); NEUTROPHILS % 58.6 % (36.0-66.0); PLATELET COUNT, AUTOMATED 187 10^3/uL (150-450); RED BLOOD COUNT 5.14 10^6/uL (4.30-6.10); WHITE BLOOD COUNT 6.7 10^3/uL (4.0-10.0)
[2023-11-11 17:09] LABS: ALBUMIN 3.3 G/DL (3.2-5.2); ALKALINE PHOSPHATASE 122 U/L (46-116); ALT/SGPT 23 U/L (7.0-40); AST/SGOT 27 U/L (<34); BILIRUBIN,TOTAL 0.4 MG/DL (0.3-1.2); BLOOD UREA NITROGEN 17 MG/DL (9-23); CALCIUM LEVEL 9.1 MG/DL (8.3-10.6); CARBON DIOXIDE LEVEL 30 MMOL/L (20-31); CHLORIDE LEVEL 103 MMOL/L (98-107); CREATININE FOR GFR 0.66 MG/DL (0.70-1.30); GLOMERULAR FILTRATION RATE > 60.0 (>42); GLUCOSE, FASTING 95 MG/DL (74-106); POTASSIUM SERUM 4.3 MMOL/L (3.5-5.1); SODIUM LEVEL 137 MMOL/L (136-145); TOTAL PROTEIN 6.8 G/DL (5.7-8.2)
== END ==
LOC: M RAD 15:43
PROVIDERS: ATTEND Physician Assistant Medical
DX: R60.0 Localized edema (principal); A41.9 Sepsis, unspecified organism; R65.20 Severe sepsis without septic shock; C15.4 Malignant neoplasm of middle third of esophagus; I11.0 Hypertensive heart disease with heart failure

== ENCOUNTER 2023-12-08 18:52 | Emergency (ER) | payer MEDICARE, BC, OTHER ==
[~2023-12-08] VITALS: Ht 172.7 cm; Wt 99.2 kg
[2023-12-09 01:07] VITALS: BP 135/80; TEMP 97.8; O2SAT 96
== END 2023-12-09 01:13 | disposition home or self-care (01) ==
LOC: M ED 18:52
DX: K94.23 Gastrostomy malfunction (principal); I10 Essential (primary) hypertension; E78.5 Hyperlipidemia, unspecified; K21.9 Gastro-esophageal reflux disease without esophagitis; C15.9 Malignant neoplasm of esophagus, unspecified; Z86.718 Personal history of other venous thrombosis and embolism; Z86.16 Personal history of COVID-19; Z86.74 Personal history of sudden cardiac arrest; Z86.79 Personal history of other diseases of the circulatory system; Z88.3 Allergy status to other anti-infective agents; Z88.8 Allergy status to other drugs, medicaments and biological substances; Z79.899 Other long term (current) drug therapy

== ENCOUNTER 2023-12-09 07:35 | Emergency (ER) | payer MEDICARE, BC, OTHER ==
[~2023-12-09] VITALS: Ht 175.3 cm; Wt 99.0 kg
[2023-12-09 08:59] VITALS: BP 127/72; TEMP 98.4; O2SAT 96
== END 2023-12-09 09:27 | disposition home or self-care (01) ==
LOC: M ED 07:35
DX: Z43.1 Encounter for attention to gastrostomy (principal); I10 Essential (primary) hypertension; E78.5 Hyperlipidemia, unspecified; K21.9 Gastro-esophageal reflux disease without esophagitis; C15.9 Malignant neoplasm of esophagus, unspecified; Z86.79 Personal history of other diseases of the circulatory system; Z88.8 Allergy status to other drugs, medicaments and biological substances; Z79.899 Other long term (current) drug therapy

== ENCOUNTER → 2023-12-23 | Outpatient (CLI) | payer MEDICARE, BC, OTHER ==
[~2023-12-23] MED LIST changes: +ESCI5SOL3; +PANT40GR
== END ==
LOC: M SLEEP 20:00
PROVIDERS: ATTEND Internal Medicine Pulmonary Disease
DX: R06.83 Snoring (principal)

== ENCOUNTER → 2024-01-24 | Outpatient (CLI) | payer MEDICARE, BC ==
[2024-01-24 15:40] LABS: CHOLESTEROL RISK RATIO 4.8 (<5); HDL CHOLESTEROL 36.2 MG/DL (>40); LDL CHOLESTEROL 65.6 MG/DL (<100); NON-HDL-C 137.8 MG/DL
== END ==
LOC: M PLALAB 11:57
PROVIDERS: ATTEND Physician Assistant Medical
DX: E78.2 Mixed hyperlipidemia (principal); I11.0 Hypertensive heart disease with heart failure; I50.9 Heart failure, unspecified

== ENCOUNTER → 2024-03-02 | Outpatient (CLI) | payer MEDICARE, BC ==
[~2024-03-02] MED LIST changes: +GASTROGRAFIN SOLUTION 30ML As Ordered ONE; +ISOVUE-370 76% 100ML VIAL As Ordered ONE; +ONDA-284 PO; -ONDA8TAB8 PO; +TRIA1CRE5; +VALA1TAB5 PO
== END ==
LOC: M RAD 11:33
PROVIDERS: ATTEND Specialist
DX: C15.9 Malignant neoplasm of esophagus, unspecified (principal)
CPT/HCPCS: 71260; 74160; Q9963; Q9967

== ENCOUNTER → 2024-04-11 | Outpatient (CLI) | payer MEDICARE, BC, OTHER ==
[~2024-04-11] MED LIST changes: -GASTROGRAFIN SOLUTION 30ML As Ordered ONE; -ISOVUE-370 76% 100ML VIAL As Ordered ONE
== END ==
LOC: M SLEEP 20:00
PROVIDERS: ATTEND Internal Medicine Pulmonary Disease
DX: G47.33 Obstructive sleep apnea (adult) (pediatric) (principal)

== ENCOUNTER 2024-04-20 12:38 | Emergency (ER) | payer MEDICARE, BC ==
[~2024-04-20] VITALS: Ht 172.7 cm; Wt 100.5 kg
[2024-04-20 18:10] VITALS: BP 144/85; TEMP 97.8; O2SAT 94
== END 2024-04-20 18:11 | disposition home or self-care (01) ==
LOC: M ED 12:38
DX: K94.23 Gastrostomy malfunction (principal); C15.9 Malignant neoplasm of esophagus, unspecified; I10 Essential (primary) hypertension; E78.5 Hyperlipidemia, unspecified; K21.9 Gastro-esophageal reflux disease without esophagitis; Z86.79 Personal history of other diseases of the circulatory system; Z88.3 Allergy status to other anti-infective agents; Z79.899 Other long term (current) drug therapy

== ENCOUNTER 2024-04-21 08:56 | Emergency (ER) | payer MEDICARE, BC, OTHER ==
[~2024-04-21] VITALS: Ht 175.3 cm; Wt 99.2 kg
[2024-04-21 12:40] VITALS: BP 158/91; TEMP 96.9; O2SAT 96
== END 2024-04-21 13:00 | disposition home or self-care (01) ==
LOC: M ED 08:56
DX: K94.23 Gastrostomy malfunction (principal); K21.9 Gastro-esophageal reflux disease without esophagitis; C15.9 Malignant neoplasm of esophagus, unspecified; I35.0 Nonrheumatic aortic (valve) stenosis; E55.9 Vitamin D deficiency, unspecified; R13.10 Dysphagia, unspecified; Z86.718 Personal history of other venous thrombosis and embolism; Z79.01 Long term (current) use of anticoagulants; Z86.79 Personal history of other diseases of the circulatory system; Z88.8 Allergy status to other drugs, medicaments and biological substances; Z79.899 Other long term (current) drug therapy

== ENCOUNTER → 2024-05-01 | Outpatient (CLI) | payer MEDICARE, BC | LOC: M CARPUL 10:38 | PROVIDERS: ATTEND Nurse Practitioner | DX: C15.9 Malignant neoplasm of esophagus, unspecified (principal); I36.1 Nonrheumatic tricuspid (valve) insufficiency ==

== ENCOUNTER → 2024-06-06 | Outpatient (CLI) | payer MEDICARE, BC ==
[~2024-06-06] MED LIST changes: +GASTROGRAFIN SOLUTION 30ML ONE; +ISOVUE-370 76% 100ML VIAL ONE
== END ==
LOC: M PLAIMG 11:55
PROVIDERS: ATTEND Dietitian, Registered
DX: C15.9 Malignant neoplasm of esophagus, unspecified (principal)
CPT/HCPCS: 71260; 74177; Q9963; Q9967

== ENCOUNTER → 2024-08-11 | Outpatient (CLI) | payer MEDICARE, BC, OTHER ==
[~2024-08-11] MED LIST changes: -GASTROGRAFIN SOLUTION 30ML ONE; -ISOVUE-370 76% 100ML VIAL ONE
[2024-08-11 09:38] LABS: BASO % 0.7 % (0.0-1.0); EOS # 0.1 10^3/uL (0.0-0.5); EOS % 2.5 % (0.0-3.0); HEMATOCRIT 44.7 % (42.0-52.0); HEMOGLOBIN 15.4 g/dl (13.5-17.5); LYMPH # 0.8 10^3/uL (1.5-5.0); MEAN CORPUSCULAR HEMOGLOBIN 33.8 pg (27.0-33.0); MEAN CORPUSCULAR HGB CONC 34.5 g/dl (32.0-36.5); MEAN CORPUSCULAR VOLUME 98.2 fl (80.0-96.0); MONO # 0.4 10^3/uL (0.0-0.8); MONO % 6.1 % (2.0-8.0); NEUTROPHILS # 4.4 10^3/uL (1.5-8.5); NEUTROPHILS % 76.3 % (36.0-66.0); PLATELET COUNT, AUTOMATED 145 10^3/uL (150-450); RED BLOOD COUNT 4.55 10^6/uL (4.30-6.10); WHITE BLOOD COUNT 5.7 10^3/uL (4.0-10.0)
[2024-08-11 09:53] LABS: INR 0.99; PROTHROMBIN TIME 13.4 SECONDS (12.5-14.5)
[2024-08-11 10:04] LABS: BLOOD UREA NITROGEN 25 MG/DL (9-23); CALCIUM LEVEL 9.4 MG/DL (8.3-10.6); CARBON DIOXIDE LEVEL 30 MMOL/L (20-31); CHLORIDE LEVEL 102 MMOL/L (98-107); GLOMERULAR FILTRATION RATE > 60.0 (>42); GLUCOSE, FASTING 110 MG/DL (74-106); POTASSIUM SERUM 3.7 MMOL/L (3.5-5.1); SODIUM LEVEL 136 MMOL/L (136-145)
== END ==
LOC: M LAB 08:54
PROVIDERS: ATTEND Physician Assistant Medical
DX: I11.0 Hypertensive heart disease with heart failure (principal); Z95.2 Presence of prosthetic heart valve; R60.0 Localized edema; I50.9 Heart failure, unspecified

== ENCOUNTER → 2024-08-29 | Outpatient (CLI) | payer MEDICARE, BC ==
[2024-08-29 10:30] LABS: HEMATOCRIT 44.8 % (42.0-52.0); HEMOGLOBIN 15.4 g/dl (13.5-17.5); MEAN CORPUSCULAR HGB CONC 34.4 g/dl (32.0-36.5); MEAN CORPUSCULAR VOLUME 98.9 fl (80.0-96.0); PLATELET COUNT, AUTOMATED 164 10^3/uL (150-450); RED BLOOD COUNT 4.53 10^6/uL (4.30-6.10)
[2024-08-29 10:33] LABS: IRON (FE) 91 UG/DL (65-175)
[2024-08-29 10:34] LABS: ALBUMIN 3.1 G/DL (3.2-5.2); ALKALINE PHOSPHATASE 118 U/L (40-129); ALT/SGPT 25 U/L (7.0-40); AST/SGOT 28 U/L (<34); BILIRUBIN,TOTAL 0.6 MG/DL (0.3-1.2); BLOOD UREA NITROGEN 14 MG/DL (9-23); CALCIUM LEVEL 9.3 MG/DL (8.3-10.6); CARBON DIOXIDE LEVEL 28 MMOL/L (20-31); CHLORIDE LEVEL 104 MMOL/L (98-107); CHOLESTEROL LEVEL 224 MG/DL (<200); CHOLESTEROL RISK RATIO 5.22 (<5); CREATININE FOR GFR 0.78 MG/DL (0.70-1.30); GLOMERULAR FILTRATION RATE > 60.0 (>42); GLUCOSE, FASTING 128 MG/DL (74-106); HDL CHOLESTEROL 42.9 MG/DL (>40); LDL CHOLESTEROL 130.7 MG/DL (<100); NON-HDL-C 181.1 MG/DL; PERCENT SATURATION 26.5 % (19.7-50.0); POTASSIUM SERUM 3.9 MMOL/L (3.5-5.1); PSA SCREENING 3.38 NG/ML (< 4.00); SODIUM LEVEL 142 MMOL/L (136-145); TOTAL IRON BINDING CAPACITY 343 UG/DL (250-425); TOTAL PROTEIN 6.3 G/DL (5.7-8.2); TRIGLYCERIDES LEVEL 252 MG/DL (<150)
[2024-08-29 10:38] LABS: THYROID STIMULATING HORMONE 3.016 uIU/ML (0.55-4.78); TOTAL 25(OH) VITAMIN D 27.9 NG/ML (20.0-100.0)
[2024-08-29 10:39] LABS: FREE T4 0.86 NG/DL (0.89-1.76); VITAMIN B12 LEVEL 577 PG/ML (211-911)
[2024-08-29 11:16] LABS: HEMOGLOBIN A1c 6.8 % (4.0-6.0)
== END ==
LOC: M PLALAB 07:21
PROVIDERS: ATTEND Family Medicine
DX: D50.9 Iron deficiency anemia, unspecified (principal); R63.5 Abnormal weight gain; Z13.1 Encounter for screening for diabetes mellitus; I50.32 Chronic diastolic (congestive) heart failure; I11.0 Hypertensive heart disease with heart failure; E78.2 Mixed hyperlipidemia; Z12.5 Encounter for screening for malignant neoplasm of prostate; E53.8 Deficiency of other specified B group vitamins; Z79.899 Other long term (current) drug therapy
CPT/HCPCS: 36415; 80053; 80061; 82306; 82607; 82728; 83036; 83550; 83880; 84439; 84443; 85027; 85046; G0103

== ENCOUNTER → 2024-09-27 | Outpatient (CLI) | payer MEDICARE, BC ==
[~2024-09-27] MED LIST changes: -BAYE325T12 PO; +BAYE325T2 PO; +ISOVUE-370 76% 100ML VIAL As Ordered ONE; +PREDOPD; +TORS20TA2; +cpap
== END ==
LOC: M RAD 12:51
PROVIDERS: ATTEND Specialist
DX: C15.9 Malignant neoplasm of esophagus, unspecified (principal); K76.0 Fatty (change of) liver, not elsewhere classified; K80.20 Calculus of gallbladder without cholecystitis without obstruction
CPT/HCPCS: 71260; 74177; Q9967

== ENCOUNTER → 2024-11-08 | Outpatient (CLI) | payer MEDICARE, BC ==
[~2024-11-08] MED LIST changes: +FURO20TA2; +ISOVUE-300 61% 100ML VIAL As Ordered ONE; -ISOVUE-370 76% 100ML VIAL As Ordered ONE; +LIDOCAINE 1% MDV 20ML VIAL As Ordered ONE; +LIDOCAINE 2% JELLY 6ML SYRINGE As Ordered ONE; +POTA20LI16
[2024-11-08 15:10] VITALS: BP 160/97; TEMP 98.5; O2SAT 96
== END ==
LOC: M IRPRO 14:59
PROVIDERS: ATTEND Family Medicine
DX: T85.598A Other mechanical complication of other gastrointestinal prosthetic devices, implants and grafts, initial encounter (principal)
CPT/HCPCS: 49450; Q9967

== ENCOUNTER 2024-12-24 11:17 | Inpatient (IN) | payer MEDICARE, BC, OTHER ==
[~2024-12-24] VITALS: Ht 175.3 cm; Wt 99.7 kg
[2024-12-24] VITALS (7 sets, daily range): BP systolic 104–109; BP diastolic 55–59; TEMP 96.9–97.6; O2SAT 93–97
[~2024-12-24 11:17] MED LIST changes: -FURO20TA2; -ISOVUE-300 61% 100ML VIAL As Ordered ONE; -LIDOCAINE 1% MDV 20ML VIAL As Ordered ONE; -LIDOCAINE 2% JELLY 6ML SYRINGE As Ordered ONE; -POTA20LI16; +POTA20LI16 PO
[2024-12-24 11:46] LABS: VENOUS BASE EXCESS 2.4 (-2.0-2.0); VENOUS HCO3 25.7 MMOL/L (23.0-27.0); VENOUS O2 SATURATION 52.4 % (60.0-80.0); VENOUS PARTIAL PRESSURE O2 25.8 mmHg (30.0-50.0); VENOUS PH 7.472 UNITS (7.330-7.430); VENOUS STANDARD HCO3 25.3 MMOL/L; VENOUS TOTAL CO2 26.8 MMOL/L (24.0-28.0)
[2024-12-24 11:49] LABS: BASO # 0.1 10^3/uL (0.0-0.2); BASO % 0.6 % (0.0-1.0); EOS # 0.1 10^3/uL (0.0-0.5); EOS % 0.8 % (0.0-3.0); HEMATOCRIT 44.5 % (42.0-52.0); HEMOGLOBIN 15.5 g/dl (13.5-17.5); LYMPH # 0.8 10^3/uL (1.5-5.0); LYMPH % 7.2 % (24.0-44.0); MEAN CORPUSCULAR HEMOGLOBIN 34.1 pg (27.0-33.0); MEAN CORPUSCULAR HGB CONC 34.8 g/dl (32.0-36.5); MEAN CORPUSCULAR VOLUME 97.8 fl (80.0-96.0); MONO # 1.3 10^3/uL (0.0-0.8); MONO % 12.3 % (2.0-8.0); NEUTROPHILS # 8.3 10^3/uL (1.5-8.5); NEUTROPHILS % 78.4 % (36.0-66.0); PLATELET COUNT, AUTOMATED 147 10^3/uL (150-450); RED BLOOD COUNT 4.55 10^6/uL (4.30-6.10); WHITE BLOOD COUNT 10.5 10^3/uL (4.0-10.0)
[2024-12-24] MEDS: NS 0.9% IV STA (11:55)
[2024-12-24] MEDS: [UNRECOGNIZED DRUG - OTHER] IV STA (11:55)
[2024-12-24] MEDS: cefTRIAXone SOD 2 GM in DEXTROSE 5% (D5W) ADV/MINI-BAG 50 ML IV ONE (11:56)
[2024-12-24] MEDS: ACETAMINOPHEN 650MG SUPP PR ONE (11:56)
[2024-12-24] MEDS: ACETAMINOPHEN 325MG SUPP PR ONE (11:56)
[2024-12-24 12:00] LABS: INR 1.62; PROTHROMBIN TIME 19.5 SECONDS (12.5-14.5)
[2024-12-24 12:22] LABS: ALBUMIN 3.4 G/DL (3.2-5.2); ALKALINE PHOSPHATASE 122 U/L (40-129); ALT/SGPT 24 U/L (7.0-40); AST/SGOT 27 U/L (<34); BILIRUBIN,DIRECT 0.2 MG/DL (<0.4); BILIRUBIN,TOTAL 0.7 MG/DL (0.3-1.2); BLOOD UREA NITROGEN 18 MG/DL (9-23); CALCIUM LEVEL 9.1 MG/DL (8.3-10.6); CARBON DIOXIDE LEVEL 27 MMOL/L (20-31); CHLORIDE LEVEL 101 MMOL/L (98-107); CREATININE FOR GFR 0.81 MG/DL (0.70-1.30); GLOMERULAR FILTRATION RATE > 90.0 (>42); GLUCOSE, FASTING 112 MG/DL (74-106); OSMOLALITY SERUM 290 MOSM/KG (280-301); POTASSIUM SERUM 4.2 MMOL/L (3.5-5.1); SODIUM LEVEL 139 MMOL/L (136-145); TOTAL PROTEIN 6.7 G/DL (5.7-8.2)
[2024-12-24 12:41] LABS: KETONE, URINE AUTO RFX NEGATIVE (NEGATIVE); LEUKOCYTE ESTERASE UR AUTO RFX NEGATIVE (NEGATIVE); NITRITE, URINE AUTO RFX NEGATIVE (NEGATIVE); RBC, URINE AUTO RFX 3 /HPF (0-3); SQUAM EPITHELIAL CELL UR AURFX 0 /HPF (0-6); WBC, URINE AUTO RFX 0 /HPF (0-3)
[2024-12-24 12:56] LABS: AMPHETAMINES LEVEL URINE NEGATIVE (NEGATIVE); BARBITURATES URINE NEGATIVE (NEGATIVE); BENZODIAZEPINES URINE NEGATIVE (NEGATIVE); CANNABINOIDS URINE NEGATIVE (NEGATIVE); COCAINE METABOLITE URINE NEGATIVE (NEGATIVE); METHADONE URINE NEGATIVE (NEGATIVE); OPIATES URINE NEGATIVE (NEGATIVE); PHENCYCLIDINE URINE NEGATIVE (NEGATIVE)
[2024-12-24] MEDS ORDERED: ISOVUE-370 76% 100ML VIAL As Ordered ONE (13:03)
[2024-12-24] MEDS ORDERED: HOME MED LIST COMPLETE! XX SCH (13:10)
[2024-12-24] MEDS: IBUPROFEN 600MG TAB PO ONE (13:39)
[2024-12-24 14:55] LABS: C REACTIVE PROTEIN QUANTITATIV 2.19 MG/DL (<1.0)
[2024-12-24] MEDS ORDERED: ACETAMINOPHEN 500 MG TAB PO PRN (15:00)
[2024-12-24 15:02] LABS: PROCALCITONIN 0.16 ng/ml
[2024-12-24] MEDS ORDERED: SODIUM CHLORIDE 0.9% INJ 10 ML SYR IV PRN (15:30)
[2024-12-24] MEDS ORDERED: LEVALBUTEROL 1.25 MG 0.5ML CONCENTRATE NEB INH PRN (15:40)
[2024-12-24] MEDS: PIPERACILLIN/TAZOBACTAM SOD 4.5 GM in DEXTROSE 5% (D5W) ADV/MINI-BAG 50 ML IV SCH (17:35)
[2024-12-24] MEDS: DOXYCYCLINE HYCLATE 100 MG in DEXTROSE 5% (D5W) MINI-BAG PLU 100 ML IV SCH (21:01)
[2024-12-25] VITALS (30 sets, daily range): BP systolic 117–132; BP diastolic 60–66; TEMP 98–102.8; O2SAT 91–100
[2024-12-25 05:45] LABS: HEMATOCRIT 42.6 % (42.0-52.0); HEMOGLOBIN 14.6 g/dl (13.5-17.5); MEAN CORPUSCULAR HEMOGLOBIN 33.3 pg (27.0-33.0); MEAN CORPUSCULAR HGB CONC 34.3 g/dl (32.0-36.5); PLATELET COUNT, AUTOMATED 107 10^3/uL (150-450); RED BLOOD COUNT 4.39 10^6/uL (4.30-6.10); WHITE BLOOD COUNT 9.1 10^3/uL (4.0-10.0)
[2024-12-25 06:12] LABS: BLOOD UREA NITROGEN 15 MG/DL (9-23); CALCIUM LEVEL 7.8 MG/DL (8.3-10.6); CARBON DIOXIDE LEVEL 22 MMOL/L (20-31); CHLORIDE LEVEL 106 MMOL/L (98-107); CREATININE FOR GFR 0.82 MG/DL (0.70-1.30); GLOMERULAR FILTRATION RATE > 90.0 (>42); GLUCOSE, FASTING 137 MG/DL (74-106); POTASSIUM SERUM 3.7 MMOL/L (3.5-5.1); SODIUM LEVEL 139 MMOL/L (136-145)
[2024-12-25] MEDS: SODIUM CHLORIDE 0.9% INJ 10 ML SYR IV SCH (08:45)
[2024-12-25] MEDS: ACETAMINOPHEN *IV* 1,000 MG in IV 1 EA IV ONE (09:08)
[2024-12-25] MEDS: cefTRIAXone SOD 2 GM in DEXTROSE 5% (D5W) ADV/MINI-BAG 50 ML IV SCH (11:04)
[2024-12-25] MEDS: RIVAROXABAN 20MG TAB (XARELTO) GT SCH (17:23)
[2024-12-25] MEDS ORDERED: RIVAROXABAN 20MG TAB (XARELTO) PO SCH (18:00)
[2024-12-25 18:45] LABS: PROCALCITONIN 2.98 ng/ml
[2024-12-26] VITALS (17 sets, daily range): BP systolic 120–138; BP diastolic 72–79; TEMP 98.9–99.8; O2SAT 89–97
[2024-12-26 10:21] LABS: BASO % 0.8 % (0.0-1.0); EOS # 0.1 10^3/uL (0.0-0.5); EOS % 1.8 % (0.0-3.0); HEMATOCRIT 41.9 % (42.0-52.0); HEMOGLOBIN 14.6 g/dl (13.5-17.5); LYMPH # 0.7 10^3/uL (1.5-5.0); LYMPH % 13.3 % (24.0-44.0); MEAN CORPUSCULAR HGB CONC 34.8 g/dl (32.0-36.5); MEAN CORPUSCULAR VOLUME 97.7 fl (80.0-96.0); MONO # 0.7 10^3/uL (0.0-0.8); MONO % 14.5 % (2.0-8.0); NEUTROPHILS # 3.5 10^3/uL (1.5-8.5); RED BLOOD COUNT 4.29 10^6/uL (4.30-6.10); WHITE BLOOD COUNT 5.1 10^3/uL (4.0-10.0)
[2024-12-26 10:36] LABS: PLATELET COUNT, AUTOMATED 97 10^3/uL (150-450)
[2024-12-26] MEDS: AZITHROMYCIN SUSP 200MG/5ML 30ML BOTTLE PO SCH (10:42)
[2024-12-26 10:52] LABS: BLOOD UREA NITROGEN 13 MG/DL (9-23); CALCIUM LEVEL 8.3 MG/DL (8.3-10.6); CARBON DIOXIDE LEVEL 22 MMOL/L (20-31); CHLORIDE LEVEL 108 MMOL/L (98-107); CREATININE FOR GFR 0.61 MG/DL (0.70-1.30); GLOMERULAR FILTRATION RATE > 90.0 (>42); GLUCOSE, FASTING 213 MG/DL (74-106); POTASSIUM SERUM 3.9 MMOL/L (3.5-5.1); SODIUM LEVEL 140 MMOL/L (136-145)
[2024-12-26 11:02] LABS: PROCALCITONIN 1.76 ng/ml
[2024-12-26] MEDS: AMOXICILLIN 400MG/5ML SUSP BTL 50ML PO SCH ×2 (15:26→22:08)
[2024-12-26] MEDS: ENOXAPARIN 100MG/1ML SYRINGE (J1650 PER 10MG) SC SCH (18:00)
[2024-12-27] VITALS (25 sets, daily range): BP systolic 119–137; BP diastolic 71–84; TEMP 97.7–98.4; O2SAT 90–98
[2024-12-27 06:13] LABS: HEMOGLOBIN 14.5 g/dl (13.5-17.5); MEAN CORPUSCULAR HEMOGLOBIN 33.5 pg (27.0-33.0); MEAN CORPUSCULAR HGB CONC 34.5 g/dl (32.0-36.5); PLATELET COUNT, AUTOMATED 108 10^3/uL (150-450); RED BLOOD COUNT 4.33 10^6/uL (4.30-6.10); WHITE BLOOD COUNT 5.2 10^3/uL (4.0-10.0)
[2024-12-27 07:14] LABS: BLOOD UREA NITROGEN 11 MG/DL (9-23); CALCIUM LEVEL 7.8 MG/DL (8.3-10.6); CARBON DIOXIDE LEVEL 23 MMOL/L (20-31); CHLORIDE LEVEL 107 MMOL/L (98-107); CREATININE FOR GFR 0.66 MG/DL (0.70-1.30); GLOMERULAR FILTRATION RATE > 90.0 (>42); GLUCOSE, FASTING 106 MG/DL (74-106); POTASSIUM SERUM 3.8 MMOL/L (3.5-5.1); SODIUM LEVEL 139 MMOL/L (136-145)
[2024-12-27] MEDS: LACTOBACILLUS ACIDOPHILUS CAP (BACID) PO SCH (10:04)
[2024-12-27] MEDS ORDERED: RISATAB3 PO (10:35)
[2024-12-27] MEDS ORDERED: AMOX400S2 PO (10:35)
[2024-12-27] MEDS ORDERED: ENOX100I3 SC (10:35)
[2024-12-27 12:37] LABS: PROCALCITONIN 1.17 ng/ml
[2024-12-27] MEDS: DIAPER RELIEF PASTE (DESITIN) 60GM TOP SCH (13:52)
[2024-12-28] VITALS (11 sets, daily range): BP systolic 105–142; BP diastolic 73–80; TEMP 97.6–98.5; O2SAT 94–97
[2024-12-28 06:21] LABS: BASO % 0.9 % (0.0-1.0); EOS # 0.3 10^3/uL (0.0-0.5); HEMATOCRIT 42.1 % (42.0-52.0); HEMOGLOBIN 14.5 g/dl (13.5-17.5); LYMPH # 0.8 10^3/uL (1.5-5.0); LYMPH % 19.1 % (24.0-44.0); MEAN CORPUSCULAR HEMOGLOBIN 33.1 pg (27.0-33.0); MEAN CORPUSCULAR HGB CONC 34.4 g/dl (32.0-36.5); MEAN CORPUSCULAR VOLUME 96.1 fl (80.0-96.0); MONO # 0.9 10^3/uL (0.0-0.8); MONO % 20.5 % (2.0-8.0); NEUTROPHILS # 2.2 10^3/uL (1.5-8.5); NEUTROPHILS % 50.8 % (36.0-66.0); PLATELET COUNT, AUTOMATED 155 10^3/uL (150-450); RED BLOOD COUNT 4.38 10^6/uL (4.30-6.10); WHITE BLOOD COUNT 4.2 10^3/uL (4.0-10.0)
[2024-12-28 06:50] LABS: BLOOD UREA NITROGEN 10 MG/DL (9-23); CALCIUM LEVEL 8.3 MG/DL (8.3-10.6); CARBON DIOXIDE LEVEL 24 MMOL/L (20-31); CHLORIDE LEVEL 107 MMOL/L (98-107); CREATININE FOR GFR 0.64 MG/DL (0.70-1.30); GLOMERULAR FILTRATION RATE > 90.0 (>42); GLUCOSE, FASTING 105 MG/DL (74-106); MAGNESIUM LEVEL 2.1 MG/DL (1.8-2.4); POTASSIUM SERUM 3.8 MMOL/L (3.5-5.1); SODIUM LEVEL 141 MMOL/L (136-145)
[2024-12-28 07:02] LABS: PROCALCITONIN 0.74 ng/ml
[2024-12-28] MEDS: FUROSEMIDE 20 MG TAB PO SCH (08:22)
== END 2024-12-28 17:35 | disposition home or self-care (01) | DRG 871 ==
LOC: EDBD 11:17 → M ED 11:17 → M ED INP 14:03 → M PCU 15:52
PROVIDERS: ADMIT Internal Medicine; ATTEND Internal Medicine
DX: A40.9 Streptococcal sepsis, unspecified (principal); J15.69 Pneumonia due to other Gram-negative bacteria; J96.01 Acute respiratory failure with hypoxia; I33.9 Acute and subacute endocarditis, unspecified; E87.20 Acidosis, unspecified; L03.115 Cellulitis of right lower limb; C15.9 Malignant neoplasm of esophagus, unspecified; I82.501 Chronic embolism and thrombosis of unspecified deep veins of right lower extremity; Z92.21 Personal history of antineoplastic chemotherapy; Z79.01 Long term (current) use of anticoagulants; D69.6 Thrombocytopenia, unspecified; Z93.1 Gastrostomy status; Z95.2 Presence of prosthetic heart valve; Z85.828 Personal history of other malignant neoplasm of skin; Z79.899 Other long term (current) drug therapy; Z88.8 Allergy status to other drugs, medicaments and biological substances

== ENCOUNTER → 2025-01-08 | Outpatient (REF) | payer MEDICARE, BC, OTHER ==
[~2025-01-08] MED LIST changes: +AMOX400S2 PO; +CLOT1CRE56; +ENOX100I3 SC; +RISATAB3 PO
[2025-01-08 09:50] LABS: BASO # 0.1 10^3/uL (0.0-0.2); BASO % 1.7 % (0.0-1.0); EOS # 0.2 10^3/uL (0.0-0.5); EOS % 2.8 % (0.0-3.0); HEMATOCRIT 42.5 % (42.0-52.0); HEMOGLOBIN 14.8 g/dl (13.5-17.5); LYMPH # 1.2 10^3/uL (1.5-5.0); MEAN CORPUSCULAR HEMOGLOBIN 34.4 pg (27.0-33.0); MEAN CORPUSCULAR HGB CONC 34.8 g/dl (32.0-36.5); MEAN CORPUSCULAR VOLUME 98.8 fl (80.0-96.0); MONO # 1.4 10^3/uL (0.0-0.8); MONO % 16.7 % (2.0-8.0); NEUTROPHILS # 5.2 10^3/uL (1.5-8.5); NEUTROPHILS % 63.7 % (36.0-66.0); PLATELET COUNT, AUTOMATED 224 10^3/uL (150-450); WHITE BLOOD COUNT 8.2 10^3/uL (4.0-10.0)
== END ==
LOC: M LAB REF 09:24
PROVIDERS: ATTEND Internal Medicine Infectious Disease
DX: B95.4 Other streptococcus as the cause of diseases classified elsewhere (principal)

== ENCOUNTER → 2025-01-15 | Outpatient (CLI) | payer MEDICARE, BC ==
[~2025-01-15] MED LIST changes: +ISOVUE-370 76% 100ML VIAL As Ordered ONE
== END ==
LOC: M RAD 14:11
PROVIDERS: ATTEND Nurse Practitioner Women's Health
DX: C15.9 Malignant neoplasm of esophagus, unspecified (principal)
CPT/HCPCS: 71260; 74177; Q9967

== ENCOUNTER → 2025-03-23 | Outpatient (POV) | payer MEDICARE, BC ==
[~2025-03-23] MED LIST changes: -AMIO200T49 PO; +AMIO200T54 PO; -ISOVUE-370 76% 100ML VIAL As Ordered ONE; +SILVER NITRATE APPLICATOR (1 = QTY 10) As Ordered ONE; +SILVER NITRATE APPLICATOR (1 = QTY 10) TOP ONE; +TRIPLE PASTE TOP SCH
== END ==
LOC: M IRPOV 13:25
PROVIDERS: ATTEND Radiology Diagnostic Radiology
DX: Z43.1 Encounter for attention to gastrostomy (principal); L92.8 Other granulomatous disorders of the skin and subcutaneous tissue

== ENCOUNTER → 2025-04-30 | Outpatient (CLI) | payer MEDICARE, BC ==
[~2025-04-30] MED LIST changes: -SILVER NITRATE APPLICATOR (1 = QTY 10) As Ordered ONE; -SILVER NITRATE APPLICATOR (1 = QTY 10) TOP ONE; +SODIUM CHLORIDE 0.9% 1000 ML XX SCH; -TRIPLE PASTE TOP SCH
[2025-04-30] MEDS: LIDOCAINE 1% MDV 20 ML VIAL SC SCH (12:15)
[2025-04-30 12:20] VITALS: TEMP 98
[2025-04-30] MEDS: LIDOCAINE 2% JELLY 6 ML SYRINGE TOP SCH (13:30)
[2025-04-30] MEDS: ISOVUE-300 61% 100 ML VIAL IV SCH (13:31)
[2025-04-30 13:35] VITALS: BP 138/78; O2SAT 98
== END ==
LOC: M IRPRO 12:08
PROVIDERS: ATTEND Radiology Diagnostic Radiology
DX: Z43.1 Encounter for attention to gastrostomy (principal); C15.5 Malignant neoplasm of lower third of esophagus; C79.51 Secondary malignant neoplasm of bone; C44.219 Basal cell carcinoma of skin of left ear and external auricular canal; C78.89 Secondary malignant neoplasm of other digestive organs
CPT/HCPCS: 36415; 49450; 80053; 82378; 83615; 83735; 85025; 86301; Q9967

== ENCOUNTER → 2025-05-04 | Outpatient (CLI) | payer MEDICARE, BC ==
[~2025-05-04] MED LIST changes: +ISOVUE-370 76% 100 ML VIAL As Ordered ONE; -SODIUM CHLORIDE 0.9% 1000 ML XX SCH
== END ==
LOC: M RAD 13:22
DX: C15.9 Malignant neoplasm of esophagus, unspecified (principal); K80.20 Calculus of gallbladder without cholecystitis without obstruction; Z93.1 Gastrostomy status; J47.9 Bronchiectasis, uncomplicated; J84.10 Pulmonary fibrosis, unspecified
CPT/HCPCS: 71260; 74177; Q9967

== ENCOUNTER → 2025-07-03 | Outpatient (CLI) | payer MEDICARE, BC ==
[~2025-07-03] MED LIST changes: -ISOVUE-370 76% 100 ML VIAL As Ordered ONE; +LIDOCAINE 1% MDV 20 ML VIAL SC SCH; +SODIUM CHLORIDE 0.9% 1000 ML XX SCH; +ceFAZolin SODIUM 2 GM in DEXTROSE 5% (D5W) ADV/MINI-BAG 50 ML IV ONE
[2025-07-03 12:43] VITALS: TEMP 98
[2025-07-03] MEDS: ISOVUE-300 61% 100 ML VIAL IV SCH (13:37)
[2025-07-03] MEDS: LIDOCAINE 2% JELLY 6 ML SYRINGE TOP SCH (13:38)
[2025-07-03 13:50] VITALS: BP 158/85; O2SAT 96
== END ==
LOC: M IRPRO 12:14
DX: R13.10 Dysphagia, unspecified (principal); C15.9 Malignant neoplasm of esophagus, unspecified
CPT/HCPCS: 49450; Q9967

== ENCOUNTER → 2025-08-13 | Outpatient (CLI) | payer MEDICARE, BC ==
[~2025-08-13] MED LIST changes: +ISOVUE-370 76% 100 ML VIAL As Ordered ONE; -LIDOCAINE 1% MDV 20 ML VIAL SC SCH; -SODIUM CHLORIDE 0.9% 1000 ML XX SCH; -ceFAZolin SODIUM 2 GM in DEXTROSE 5% (D5W) ADV/MINI-BAG 50 ML IV ONE
== END ==
LOC: M RAD 15:59
DX: C15.9 Malignant neoplasm of esophagus, unspecified (principal)
CPT/HCPCS: 71260; 74177; Q9967